=== PATIENT | female | born 1975 | race Caucasian/White ===

== ENCOUNTER 2020-08-18 11:57 | Outpatient (REF) | payer MEDICAID, SELFPAY ==
[2020-08-18 13:19] LABS: Alanine Aminotransferase 13 U/L (0-31); Albumin Level 3.6 g/dL (3.5-5.0); Alkaline Phosphatase 57 U/L (39-117); Anion Gap 10 (12-20); Aspartate Amino Transferase 14 U/L (5-31); Bilirubin Total 0.3 mg/dL (0.0-1.0); Blood Urea Nitrogen 34 mg/dL (9-16); Calcium 8.6 mg/dL (8.4-10.2); Carbon Dioxide 19 mmol/L (22-29); Chloride 116 mmol/L (96-108); Estimated Glomerular Filt Rate 24; Glucose Random 113 mg/dL (60-115); Potassium 4.2 mmol/L (3.3-5.1); Sodium 141 mmol/L (135-145)
== END 2020-08-18 11:58 | disposition home or self-care (01) ==
LOC: HO.MANLDS 11:57
PROVIDERS: Visit Provider Internal Medicine
DX: N18.4 Chronic kidney disease, stage 4 (severe) (principal)
CPT/HCPCS: 36415; 80053

== ENCOUNTER 2021-05-21 09:45 | Outpatient (REF) | payer MEDICAID, SELFPAY ==
[2021-05-21 11:12] LABS: MANUAL DIFF FLAG NO
[2021-05-21 11:18] LABS: Basophils Absolute Auto 0.1 X10*3/uL (0.0-0.2); Basophils Percent Auto 0.5 % (0-2); Eosinophils Absolute Auto 0.4 X10*3/uL (0.0-0.4); Eosinophils Percent Auto 3.9 % (0-4); Hematocrit 39.8 % (37.0-47.0); Hemoglobin 13.1 g/dl (12.0-16.0); Imm Gran Abs Auto 0.06 X10*3/uL (0.00-0.03); Imm Gran Pct Auto 0.6 % (0.0-0.4); Lymphocytes Absolute Auto 1.7 X10*3/uL (1.2-4.9); Lymphocytes Percent Auto 17.8 % (20-40); Mean Corpuscular HGB Conc 32.9 g/dl (31.0-35.0); Mean Corpuscular Hemoglobin 30.3 pg (27.0-33.0); Mean Corpuscular Volume 92.1 fL (80.0-98.0); Mean Platelet Volume 10.9 fL (9.4-12.3); Monocytes Absolute Auto 0.6 X10*3/uL (0.1-1.2); Monocytes Percent Auto 6.5 % (2-11); Neutrophils Absolute Auto 6.7 x10*3/uL (2.0-8.3); Neutrophils Percent Auto 70.7 % (45-73); Platelet Count 279 X10*3/uL (160-400); Red Blood Count 4.32 X10*6/uL (4.20-5.50); Red Cell Distribution Width 13.2 % (11.0-16.0); White Blood Count 9.5 X10*3/uL (4.8-10.8)
[2021-05-21 11:25] LABS: Alanine Aminotransferase 19 U/L (0-31); Albumin Level 3.7 g/dL (3.5-5.0); Alkaline Phosphatase 63 U/L (39-117); Anion Gap 14 (12-20); Aspartate Amino Transferase 15 U/L (5-31); Bilirubin Total 0.3 mg/dL (0.0-1.0); Blood Urea Nitrogen 35 mg/dL (9-16); Calcium 9.1 mg/dL (8.4-10.2); Carbon Dioxide 18 mmol/L (22-29); Chloride 111 mmol/L (96-108); Cholesterol 174 mg/dL; Estimated Glomerular Filt Rate 22; Glucose Fasting 101 mg/dL (60-99); HDL Cholesterol 43 mg/dL; Iron 76 mcg/dL (30-160); LDL Cholesterol Calculated 92 mg/dl; Percent Iron Saturation 25 % (15-50); Sodium 139 mmol/L (135-145); Total Iron Binding Capacity 300 mcg/dL (228-428); Total Protein 6.3 g/dL (6.5-8.0); Triglycerides 196 mg/dL; Unsaturated Iron Binding 224 ug/dL
[2021-05-21 12:13] LABS: Ferritin 119 ng/mL (10-250)
== END 2021-05-21 09:46 | disposition home or self-care (01) ==
LOC: HO.MANLDS 09:45
PROVIDERS: PCP Internal Medicine; Visit Provider Internal Medicine
DX: N18.4 Chronic kidney disease, stage 4 (severe) (principal); D63.1 Anemia in chronic kidney disease; E78.5 Hyperlipidemia, unspecified
CPT/HCPCS: 36415; 80053; 80061; 82728; 83540; 85025

== ENCOUNTER 2022-04-04 09:20 | Day surgery (SDC) | payer MEDICAID, SELFPAY ==
--- NOTE | 2022-04-01 12:42 | HO.ANESPROP2 ---
Documented by User: Danna Marcial NP 04/01/22 12:49 HPI - Anesthesia Eval Consult details Narrative: 46yo F for Colonoscopy PMFSH Past Medical History Medical History Anemia Anxiety Asthma CKD (chronic kidney disease) Depression Encounter for prophylactic removal of ovary Ganglion of right wrist Gout HLD (hyperlipidemia) HTN (hypertension) Hx of bleeding following renal biopsy Hypothyroid Migraines Seasonal allergies Social History Social History Patient Tobacco Use Status: Never used Tobacco Use of substances other than those prescribed or required for medical reasons: No Are you DNR?: No Advance Directives: No Advance Directives Information Provided: Yes Meds Allergies Allergy/AdvReac Type Severity Reaction Status Date / Time hydrocodone [From VICODIN] Allergy Unknown VOMITTING Verified 04/04/22 09:40 latex [Latex] Allergy Unknown HANDS GET Verified 04/04/22 09:40 ITCHY AND PUFFY Home Medications Medication Instructions Recorded Confirmed Last Taken Type allopurinol 100 mg tablet 1 tab PO BID 04/01/22 04/01/22 Unknown History aripiprazole 2 mg tablet 2 tab PO DAILY 04/01/22 04/01/22 Unknown History clonazepam 04/01/22 Unknown History fluticasone fur. 200 mcg-umeclid 1 puff inhalation DAILY 04/01/22 04/01/22 Unknown History 62.5 mcg-vilant 25 mcg inhalat.powder (Trelegy Ellipta) furosemide 20 mg tablet 1 tab PO 2XW 04/01/22 04/01/22 Unknown History lisinopril 5 mg tablet 1 tab PO DAILY 04/01/22 04/01/22 Unknown History paroxetine HCl 04/01/22 Unknown History simvastatin 40 mg tablet 1 tab PO DAILY 04/01/22 04/01/22 Unknown History sumatriptan succinate 100 mg tablet mg PO 04/01/22 04/01/22 Unknown History Exam Exam Date and Time: April 01, 2022 124 Assessment and Plan Assessment Anesthesia Assessment: Chart Reviewed Documented by User: Janet Barrios MD 04/04/22 10:18 [facility] Past Medical History Medical History Anemia Anxiety Asthma CKD (chronic kidney disease) Depression Encounter for prophylactic removal of ovary Ganglion of right wrist Gout HLD (hyperlipidemia) HTN (hypertension) Hx of bleeding following renal biopsy Hypothyroid Migraines Seasonal allergies Functional capacity: independent ambulation Patient : No Family History Family history of problems with anesthesia: No Surgical History History of Problems with Anesthesia: No Social History Social History Patient Tobacco Use Status: Never used Tobacco Use of substances other than those prescribed or required for medical reasons: No Are you DNR?: No Advance Directives: No Advance Directives Information Provided: Yes Meds Allergies Allergy/AdvReac Type Severity Reaction Status Date / Time hydrocodone [From VICODIN] Allergy Unknown VOMITTING Verified 04/04/22 09:40 latex [Latex] Allergy Unknown HANDS GET Verified 04/04/22 09:40 ITCHY AND PUFFY Home Medications Medication Instructions Recorded Confirmed Last Taken Type allopurinol 100 mg tablet 1 tab PO BID 04/01/22 04/01/22 Unknown History aripiprazole 2 mg tablet 2 tab PO DAILY 04/01/22 04/01/22 Unknown History clonazepam 04/01/22 Unknown History fluticasone fur. 200 mcg-umeclid 1 puff inhalation DAILY 04/01/22 04/01/22 Unknown History 62.5 mcg-vilant 25 mcg inhalat.powder (Trelegy Ellipta) furosemide 20 mg tablet 1 tab PO 2XW 04/01/22 04/01/22 Unknown History lisinopril 5 mg tablet 1 tab PO DAILY 04/01/22 04/01/22 Unknown History paroxetine HCl 04/01/22 Unknown History simvastatin 40 mg tablet 1 tab PO DAILY 04/01/22 04/01/22 Unknown History sumatriptan succinate 100 mg tablet mg PO 04/01/22 04/01/22 Unknown History Exam Airway Mallampati Class: III TM Dist: >3cm Neck ROM: Full Heart: RRR Lungs: CTA Assessment and Plan Final Anesthetic Review Family History of Problems with Anesthesia: No History of Problems with Anesthesia: No ASA Class: III Final Preanesthetic Review: No Changes in Pt Med Stat, Meds/Allgs Chart Reviewed and Consent Obtained/Reviewed Patient Risk: Intermediate Procedure Risk: Low Anesthetic Plan Anesthetic Plan: MAC: Disposition: Standard PACU
[2022-04-04 09:36] VITALS: BMI 33.6
[2022-04-04 09:41] LABS: UPreg QC Valid YES; Urine Pregnancy NEGATIVE (NEGATIVE)
[2022-04-04 09:56] LABS: Prothrombin Time 11.9 SEC (10.0-13.1)
[2022-04-04 10:00] VITALS: BP 114/61; PULSE 69; RESP 16; TEMP 36.8; O2SAT 100
[2022-04-04 10:03] LABS: Anion Gap 11 (12-20); Blood Urea Nitrogen 28 mg/dL (9-16); Carbon Dioxide 18 mmol/L (22-29); Chloride 114 mmol/L (96-108); Creatinine Clr Calc Pharmacy 36.4; Estimated Glomerular Filt Rate 27; Glucose Fasting 90 mg/dL (60-99); Potassium 3.8 mmol/L (3.3-5.1); Sodium 139 mmol/L (135-145)
[2022-04-04] MEDS: Lactated Ringers 1,000 ML 100 ML IVCONT (10:07)
--- NOTE | 2022-04-04 10:14 | PC.NURSE ---
OK TO USE LR PER MD KIM
--- NOTE | 2022-04-04 11:52 | P.BOP_ITS ---
Brief Operative Note Date of Service: 04/04/22 Pre-op diagnosis: Screening Post-op diagnosis: other (Rectal polyp[) Procedure: Colonoscopy to the cecum and TI with biopsy and removal of polyp Surgeon: Demar Salcido Anesthesia: MAC Was an Auxiliary Plant Operator used for this Procedure?: No Estimated blood loss (mL): 2.0 Pathology: other (A. Rectal polyp) Condition: stable Disposition: PACU
[2022-04-04 11:53] VITALS: BP 120/74; PULSE 68; RESP 16; TEMP 36.4; O2SAT 98
--- NOTE | 2022-04-04 11:56 | HO.POSTANES ---
Post Anesthesia Evaluation Post Anesthesia Evaluation Vital Signs: Vital Signs Temp Pulse Resp BP Pulse Ox O2 Del Method 04/04/22 10:00 98.3 F 69 16 114/61 100 Room Air Anesthesia: Monitored Mental Status: Awake Pain Control: Satisfactory Nausea/Vomiting: None Hydration: Adequate Anesthesia-Related Issues: No Anes. Related Issues
[2022-04-04 12:08] VITALS: BP 126/69; PULSE 58; RESP 16; TEMP 36.4; O2SAT 98
--- NOTE | 2022-04-04 14:45 | OP_ITS ---
SURGEON: Demar Salcido MD INDICATIONS: The patient presents for evaluation of colorectal cancer screening. Full consent was obtained from her for this, including risks of bleeding and perforation. PREOPERATIVE DIAGNOSIS: Colorectal cancer screening. POSTOPERATIVE DIAGNOSIS: PROCEDURE PERFORMED: Colonoscopy to the cecum and terminal ileum with biopsy and removal of polyp. ESTIMATED BLOOD LOSS: COMPLICATIONS: ANESTHESIA: Monitored anesthesia care. ASSISTANTS: SPECIMENS: POSTOPERATIVE DIAGNOSES: Colorectal cancer screening, small colon polyp, internal hemorrhoids. PROCEDURE IN DETAIL: The patient was placed in the left lateral decubitus position. The digital rectal exam revealed no abnormalities. The Olympus video pediatric colonoscope was entered in the rectum and advanced easily to the cecum. Once in the cecum, I did identify normal appearing cecal pouch with appendiceal orifice and a normal appearing ileocecal valve. The terminal ileum was cannulated and appeared normal. The scope was then withdrawn back in the colon. The entire cecum and ileocecal valve appeared normal. The scope was then slowly withdrawn assessing all mucosal surface carefully. Preparation was excellent. I did not visualize any sign of colitis nor angiodysplasia. The only polyp, I visualized was in the distal rectum seen both in the retroflex and forward viewing position. This was less than 5 mm, and was biopsied and fully removed with the cold biopsy forceps. Some small internal hemorrhoids were noted as well. The scope was withdrawn from the patient. She tolerated the procedure well and was returned to the recovery area in stable condition. IMPRESSION: 1. Small rectal polyp, status biopsied and removal. 2. Internal hemorrhoids. PLAN: The results of the biopsy will be checked. If it is a tubular adenoma, I would recommend a repeat colonoscopy in 5 years. If it is only hyperplastic, I would recommend a repeat colonoscopy in 10 years. She will otherwise see me on a p.r.n. basis. MD MADISON Knott/FELIICA / [id number] JOSE C
== END 2022-04-04 12:55 | disposition home or self-care (01) ==
PROVIDERS: Nurse Practitioner; PCP Internal Medicine; Visit Provider Internal Medicine
PROC: 0DJD8ZZ Inspection of Lower Intestinal Tract, Via Natural or Artificial Opening Endoscopic (ICD-10-PCS; CPT 45378; principal; 2022-04-04 10:30)
DX: Z12.11 Encounter for screening for malignant neoplasm of colon (principal); K62.1 Rectal polyp; K64.8 Other hemorrhoids; R19.7 Diarrhea, unspecified
CPT/HCPCS: 45380; 36415; 80048; 81025; 85610; 88305

== ENCOUNTER 2024-06-07 11:03 | Outpatient (REF) | payer MEDICAID, SELFPAY ==
--- OUTSIDE RECORDS SUMMARY | 2024-06-07 12:50 | XMS_ITS | Encounter Summary ---
Author Organization [facility], Address [address] [place] [address] Phone Care Team Providers Care Blow Moulding Machine Operator Name Role Phone Asa Johnson DO Primary Care Provider Encounter Details Date Type Department Care Team (Late st Contact Info) Description 08/08/2022 Documentation Only [facility], - [address] [facility] [address] [place] [phone] Asa Johnson DO [address] [place] [address] Social History Tobacco Use Types Packs/Day Years Used Date Smoking Tobacco: Never Alcohol Use Standard Drinks/Week Comments Yes 0 (1 standard drink = 0.6 oz pure alcohol) Alcoholic Drinks/day: Occasional social drink Comments Unknown Sex and Gender Information Value Date Recorded Sex Assigned at Not on file Legal Sex Female 4:33 PM EST Gender Identity Not on file Sexual Orientation Not on file documented as of this encounter Plan of Treatment Not on file documented as of this encounter Visit Diagnoses Not on filedocumented in this encounter Care Teams Blow Moulding Machine Operator Relationship Specialty Start Date End Date Asa Johnson DO [address] [place] [address] PCP - General 01/08/19 documented as of this encounter
--- OUTSIDE RECORDS SUMMARY | 2024-06-07 12:51 | XMS_ITS | Encounter Summary ---
Author Organization [facility], Address [address] [place] [address] Phone Care Team Providers Care Planting Machine Operator Name Role Phone Asa Johnson DO Primary Care Provider [phone] Encounter Details Date Type Department Care Team (Late st Contact Info) Description 02/06/2023 Documentation Only [facility], - [address] [facility] [address] [place] [phone] Juan R Presley MD Social History Tobacco Use Types Packs/Day Years [...] on filedocumented in this encounter Care Teams Planting Machine Operator Relationship Specialty Start Date End Date Asa Johnson DO [address] [facility] [place] [phone] PCP - General 01/08/19 documented as of this encounter
--- OUTSIDE RECORDS SUMMARY | 2024-06-07 12:51 | XMS_ITS | Clinical Summary ---
Author Organization [facility], Address [address] [place] [address] Phone Care Team Providers Care Client Application Support Engineer Name Role Phone Asa Johnson Primary Care Provider [phone] Allergies Active Allergy Reactions Criticality Noted Date Comments Amlodipine 07/03/2019 Hydrocodone-Acetaminophen Nausea And Vom iting,Other (see comments) 10/31/2018 Latex Swelling,Other (see comments) 10/31/2018 Lisinopril 07/03/2019 Spironolactone 07/03/2019 Medications topiramate (TOPAMAX) 50 MG tablet Take 50 mg by mouth 2 (two) times a day 0 Active SUMAtriptan (IMITREX) 100 MG tablet Take 50-100 mg by mouth if needed 7 Active simvastatin (ZOCOR) 40 MG tablet Take 40 mg by mouth 1 (one) time each day 7 Active PARoxetine (PAXIL) 20 MG tablet paroxetine 20 mg tablet 1 tab(s) Once daily Orally 30 days Active FLUoxetine (PROzac) 20 MG capsule Take 20 mg by mouth every night 0 Active clonazePAM (KlonoPIN) 0.5 MG tablet Take 1 tablet by mouth 1 (one) time each day 7 Active ARIPiprazole (ABILIFY) 5 MG tablet Take 5 mg by mouth 1 (one) time each day 0 Active allopurinol (ZYLOPRIM) 100 MG tablet Take 100 mg by mouth 1 (one) time each day 0 Active PROAIR HFA 108 (90 Base) MCG/ACT inhaler INHALE TWO PUFFS BY MOUTH EVERY 4 HOURS 0 Active cholecalciferol (VITAMIN D-3 SUPER STRENGTH) 50 MCG (2000 UT) tablet Take 1 capsule by mouth 1 (one) time each day Active Potassium Gluconate 595 (99 K) MG tablet Take 1 tablet by mouth 1 (one) time each day Active eszopiclone (LUNESTA) 2 MG tablet at bed time Active predniSONE (DELTASONE) 10 MG tablet if needed Active fluticasone (FLONASE) 50 MCG/ACT nasal spray Comments: Filled Date: Oct 02 2014 12:00AM Duration: 30 4 Active FLUoxetine (PROzac) 10 MG capsule Take 10 mg by mouth 1 (one) time each day 1 Active cholestyramine light 4 g packet DISSOLVE AND TAKE ONE PACKET BY MOUTH EVERY DAY 1 Active ketotifen (ZADITOR) 0.025 % ophthalmic solution ketotifen 0.025 % (0.035 %) eye drops INSTILL 1 DROP INTO EACH EYE TWO TIMES A DAY NEEDED Active Trelegy Ellipta 200-62.5-25 MCG/INH aerosol powder Inhale 1 puff 1 (one) time each day 2 Active ipratropium (ATROVENT) 0.06 % nasal spray Administer 2 sprays into affected nostril(s) 3 times a day 2 Active lisinopril 5 MG tablet Take 1 tablet (5 mg total) by mouth 1 (one) time each day 90 tablet 3 3 Active furosemide (LASIX) 20 MG tablet TAKE 1 TABLET BY MOUTH 2 TIMES A WEEK 24 tablet 3 4 Active Active Problems Problem Noted Date Diagnosed Date Essential hypertension 07/14/2020 Focal segmental glomerulosclerosis 01/14/2020 Chronic kidney disease due to hypertension 07/02 Hyperparathyroidism due to renal insufficiency 0 07/03/2019 Proteinuria 07/03/2019 Adrenal hyperplasia 12/13/2017 Chronic kidney disease stage 4 12/13/2017 Gout 12/13/2017 Hyperaldosteronism 12/13/2017 Hyperlipidemia 12/13/2017 Resolved Problems Problem Noted Date Diagnosed Date Resolved Date Anemia in chronic kidney disease 07/03/2019 01/31/2023 Mixed urinary incontinence 12/13/2017 0 08/21/2019 Secondary hyperparathyroidism 07/14/2020 Anemia 08/21/2019 Encounters Date Type Department Care Team Description 04/30/2024 Telephone [facility] [address] [place] [address] Lexie Salvador from Last 3 Months Immunizations Name Administration Dates Next Due Influenza, MDCK, PF, Quadrivalent 11/07/2019, Influenza, Quadrivalent, Preservative Free 12/29 Influenza, Quadrivalent, With Preservative 12/04,11/07/2019,2018 Influenza, Unspecified 01/01/2022,12/06/2021 Moderna SARS-COV-2 01/26/2021,04/29/2020, 021 Pfizer SARS-COV-2 04/01/2020 Pneumococcal Polysaccharide 10/26/2018, 9 Tdap 04/12/2019 Family History Medical History Relation Comments COPD Father Hyperthyroidism Father Hypertension Mother Stroke Paternal Grandmother Thyroid cancer Paternal Grandmother Relation Status Comments Father Alive Mother Alive Paternal Grandmother Social History Tobacco Use Types Packs/Day Years Used Date Smoking Tobacco: Never Alcohol Use Standard Drinks/Week Comments Yes 0 (1 standard drink = 0.6 oz pure alcohol) Alcoholic Drinks/day: Occasional social drink Comments Unknown Sex and Gender Information Value Date Recorded Sex Assigned at Not on file Legal Sex Female 4:33 PM EST Gender Identity Not on file Sexual Orientation Not on file Last Filed Vital Signs Vital Sign Reading Time Taken Comments Blood Pressure 132/72 02/01/2023 7:37 AM EST Pulse 68 02/01/2023 7:37 AM EST Temperature 36.7 ??C (98 ??F) 01/24/2019 12:00 PM EST Respiratory Rate 14 02/01/2023 7:37 AM EST Oxygen Saturation - - Inhaled Oxygen Concentration - - Weight 96.2 kg (212 lb) 02/01/2023 7:37 AM EST Height 160 cm (5' 3 ) 02/01/2023 7:37 AM EST Body Mass Index 37.55 02/01/2023 7:37 AM EST Plan of Treatment Health Maintenance Due Date Last Done Comments Hepatitis B Vaccine (1 of 3 - 19+ 3-dose series) 11/30/1994 Pneumococcal Vaccine: Pediat rics (0 to 5 Years) and At-Risk Patients (6 to 64 Years) (3 of 3 - PCV) 10/27/2019 10/26/2018, 01/09/2009 Influenza Vaccine (#1) 2023 2, 12/06/2021, 12/04/2020, Additional history exists Insurance MEDICAID [place] Care Teams Client Application Support Engineer Relationship Specialty Start Date End Date Asa Johnson DO [address] [place] [phone] PCP - General 11/5/19
--- OUTSIDE RECORDS SUMMARY | 2024-06-07 12:51 | XMS_ITS | Encounter Summary ---
Author Organization [facility], Address [address] [place] [address] Phone Care Team Providers Care Harvest Manager Name Role Phone Asa Johnson DO Primary Care Provider [phone] Encounter Details Date Type Department Care Team (Late st Contact Info) Description 07/15/2022 Documentation Only [facility], - [place] [address] [facility] [address] [place] [phone] Juan R Presley MD Social History Tobacco [...] on filedocumented in this encounter Care Teams Harvest Manager Relationship Specialty Start Date End Date Asa Johnson DO 6 [facility] [phone] PCP - General 01/08/19 documented as of this encounter
--- OUTSIDE RECORDS SUMMARY | 2024-06-07 12:51 | XMS_ITS | Encounter Summary ---
Author Organization [facility], Address [address] [place] [address] Phone Care Team Providers Care Pile Driving Supervisor Name Role Phone Asa Johnson DO Primary Care Provider [phone] Encounter Details Date Type Department Care Team (Late st Contact Info) Description 02/06/2023 Documentation Only [facility], - [address] [facility] [address] [place] [phone] Juan R Presley MD Social History Tobacco [...] on filedocumented in this encounter Care Teams Pile Driving Supervisor Relationship Specialty Start Date End Date Asa Johnson DO [address] [facility] [place] [phone] PCP - General 01/08/19 documented as of this encounter
--- OUTSIDE RECORDS SUMMARY | 2024-06-07 12:51 | XMS_ITS | Encounter Summary ---
Author Organization [facility], Address [address] [place] [address] Phone Care Team Providers Care Mine Surveyor Name Role Phone Asa Johnson DO Primary Care Provider [phone] Encounter Details Date Type Department Care Team (Late st Contact Info) Description 02/06/2023 Documentation Only [facility], - [address] [facility] [address] [place] [phone] Juan R Presley MD Social History Tobacco [...] on filedocumented in this encounter Care Teams Mine Surveyor Relationship Specialty Start Date End Date Asa Johnson DO [address] [facility] [place] [phone] PCP - General 01/08/19 documented as of this encounter
--- OUTSIDE RECORDS SUMMARY | 2024-06-07 12:51 | XMS_ITS | Encounter Summary ---
Author Organization [facility], Address [address] [place] [address] Phone Care Team Providers Care Country Singer Name Role Phone Asa Johnson DO Primary Care Provider [phone] Encounter Details Date Type Department Care Team (Late st Contact Info) Description 02/14/2020 Orders Only [facility] - [facility] [address] [place] [address] Juan R Presley MD Chronic kidney disease stage 4 (HCC) Social History Tobacco Use Types Packs/Day Years [...] documented as of this encounter Visit Diagnoses Diagnosis Chronic kidney disease stage 4 (HCC) documented in this encounter Care Teams Country Singer Relationship Specialty Start Date End Date Asa Johnson DO [address] [place] [phone] PCP - General 01/08/19 documented as of this encounter
--- OUTSIDE RECORDS SUMMARY | 2024-06-07 12:51 | XMS_ITS | Encounter Summary ---
Author Organization [facility], Address [address] [place] [address] Phone Care Team Providers Care Loftsman/Woman Name Role Phone Asa Johnson DO Primary Care Provider [phone] Encounter Details Date Type Department Care Team (Late st Contact Info) Description 02/06/2023 Documentation Only [facility], - [address] [facility] [address] [place] [phone] Juan R Presley MD Social History Tobacco [...] on filedocumented in this encounter Care Teams Loftsman/Woman Relationship Specialty Start Date End Date Asa Johnson DO [address] [facility] [place] [phone] PCP - General 01/08/19 documented as of this encounter
--- OUTSIDE RECORDS SUMMARY | 2024-06-07 12:51 | XMS_ITS | Encounter Summary ---
Author Organization [facility], Address [address] [place] [address] Phone Care Team Providers Care Floor Attendant Name Role Phone Asa Johnson DO Primary Care Provider [phone] Reason for Visit * Reason Comments Med Refill Encounter Details Date Type Department Care Team (Late st Contact Info) Description 02/04/2021 Refill [facility] - [facility] [address] [facility] [address] [place] [phone] Juan R Presley MD Social History Tobacco [...] on filedocumented in this encounter Care Teams Floor Attendant Relationship Specialty Start Date End Date Asa Johnson DO [address] [place] [phone] PCP - General 01/08/19 documented as of this encounter
--- OUTSIDE RECORDS SUMMARY | 2024-06-07 12:51 | XMS_ITS | Patient Health Record ---
Author Organization [facility] Address [address] [place] [address] Care Team Providers Care Stove Installer Name Role Phone Asa Johnson Primary Care Provider Demar Lockhart [phone] Allergies Allergen (clinical drug ingredient) Drug/Non Drug Allergy documented on EMR Reaction Allergy Type Onset Date Status Latex Latex Unknown Allergy Active Vicodin Unknown Drug Allergy Active Reason For Referral No Information Medications Medication SIG (Take, Route, Frequency, Duration) Notes Start Date End Date Status Tart Crespo Ultra 1200 MG as directed Orally Active Multivitamin Adult - 1 tablet Orally Onc e a day for 30 day(s) Active Simvastatin 40 MG TAKE ONE TABLET BY M OUTH EVERY DAY Oral for 30 Active Garlic 1500 Active Furosemide 20 MG TAKE 1 TABLET BY LUCRETIA TH 2 TIMES A WEEK :) Oral for 28 Active Allopurinol 100 MG TAKE ONE TABLET BY M OUTH TWICE A DAY Oral for 30 Active Lisinopril 5 MG TAKE ONE TABLET BY M OUTH EVERY DAY Oral for 90 Active ARIPiprazole 5 MG TAKE ONE TABLET BY M OUTH EVERY DAY Oral for 30 Active PARoxetine HCl Activ e Imitrex Active Trelegy Ellipta 200-62.5-25 MCG/ACT INHALE 1 PUFF INTO THE LUNGS DAILY Inhalation for 90 Active clonazePAM Active Immunizations Vaccine Route Administration Date Status Comme nts Influenza Unknown 12/06/2021 Administered Social History Tobacco Use: Social History Observation Description Date Details (start date - stop date) Never Smoker NA - NA Tobacco Use/Smoking Question Answer Notes Patient is a nonsmoker Alcohol Screen Question Answer Notes Did you have a drink containing alcohol in the p ast year? No Points 0 Interpretation Negative Section Notes: Nonsmoker; no sig alcohol Problems Problem Type SNOMED Code ICD Code Onset Dates Problem Status W/U Status Risk Notes Problem Colon cancer screening (334156250) Colon cancer screening (Z12.11) Active confirmed Problem Diarrhea (28801558) Diarrhea (R19.7) Active confirmed Problem Preprocedural examination (226664553446975) Preprocedural examination (Z01.818) Active confirmed Plan Of Treatment Pending Test Test Name Order Date Pathology 04/04/2022 Future Test Test Name Order Date COLONOSCOPY 02/11/2022 Insurance Providers Payer Name Payer Address Payer Phone Subscriber Number Group Number Insured Name Patient Relationship to Insured Coverage Start Date Coverage End Date [place] [address] [place] [address] [id number] RJ MITCHELL Self - patient is the insured Medical (General) History Medical History History ICD Code Chronic kidney disease stage 4 --Dr. Orlando dennis Hypertension Anemia Hypothyroidism Hypercholesterolemia Asthma Anxiety Migraines Gout Depresssion Seasonal allergies Diarrhea--Negative colonosco py with me in 2009. There was no IBD or miroscopic colitis. Biopsies from the TI were normal. Negative labs for celiac disease. Denies UT,DM,CVA Surgical History Surgery Date(Month/Year) Ganglion cyst right wrist One ovary removed due to ovarian cyst
--- OUTSIDE RECORDS SUMMARY | 2024-06-07 12:51 | XMS_ITS | Encounter Summary ---
Author Organization [facility], Address [address] [place] [address] Phone Care Team Providers Care Rehabilitation Therapist Name Role Phone Asa Johnson DO Primary Care Provider [phone] Encounter Details Date Type Department Care Team (Late st Contact Info) Description 07/15/2022 Documentation Only [facility], - [place] [address] [facility] [address] [place] [phone] Juan R Presley MD Social History Tobacco [...] on filedocumented in this encounter Care Teams Rehabilitation Therapist Relationship Specialty Start Date End Date Asa Johnson DO 6 [facility] [phone] PCP - General 01/08/19 documented as of this encounter
[2024-06-07 13:36] LABS: MANUAL DIFF FLAG NO
[2024-06-07 13:41] LABS: Basophils Absolute Auto 0.1 X10*3/uL (0.0-0.2); Basophils Percent Auto 0.5 % (0-2); Eosinophils Absolute Auto 0.3 X10*3/uL (0.0-0.4); Eosinophils Percent Auto 2.6 % (0-4); Hematocrit 40.3 % (37.0-47.0); Hemoglobin 13.1 g/dl (12.0-16.0); Imm Gran Abs Auto 0.09 X10*3/uL (0.00-0.03); Imm Gran Pct Auto 0.9 % (0.0-0.4); Lymphocytes Absolute Auto 1.4 X10*3/uL (1.2-4.9); Lymphocytes Percent Auto 13.9 % (20-40); Mean Corpuscular HGB Conc 32.5 g/dl (31.0-35.0); Mean Corpuscular Hemoglobin 29.9 pg (27.0-33.0); Mean Platelet Volume 11.1 fL (9.4-12.3); Monocytes Absolute Auto 0.5 X10*3/uL (0.1-1.2); Monocytes Percent Auto 4.9 % (2-11); Neutrophils Absolute Auto 7.5 x10*3/uL (2.0-8.3); Neutrophils Percent Auto 77.2 % (45-73); Platelet Count 292 X10*3/uL (160-400); Red Blood Count 4.38 X10*6/uL (4.20-5.50); Red Cell Distribution Width 12.8 % (11.0-16.0); White Blood Count 9.8 X10*3/uL (4.8-10.8)
[2024-06-07 14:55] LABS: Alanine Aminotransferase 17 U/L (0-31); Albumin Level 3.5 g/dL (3.5-5.0); Alkaline Phosphatase 69 U/L (39-117); Anion Gap 13 (12-20); Aspartate Amino Transferase 19 U/L (5-31); Bilirubin Total 0.3 mg/dL (0.0-1.0); Blood Urea Nitrogen 71 mg/dL (9-16); Calcium 9.1 mg/dL (8.4-10.2); Carbon Dioxide 20 mmol/L (22-29); Chloride 113 mmol/L (96-108); Estimated Glomerular Filt Rate 14; Glucose Random 91 mg/dL (60-115); Potassium 4.8 mmol/L (3.3-5.1); Sodium 141 mmol/L (135-145); Total Protein 6.3 g/dL (6.5-8.0)
== END 2024-06-07 11:04 | disposition home or self-care (01) ==
LOC: HO.MANLDS 11:03
PROVIDERS: Visit Provider Internal Medicine
DX: I10 Essential (primary) hypertension (principal)
CPT/HCPCS: 36415; 80053; 85025

== ENCOUNTER 2024-07-12 14:08 | Outpatient (REF) | payer BC, SELFPAY ==
--- OUTSIDE RECORDS SUMMARY | 2024-07-12 14:47 | XMS_ITS | Clinical Summary ---
Author Organization [facility], Address [address] [place] [address] Phone Care Team Providers Care Retail Store Assistant Name Role Phone Asa Johnson Primary Care Provider [phone] Allergies Active Allergy Reactions Criticality Noted Date [...] Telephone [facility] [address] [place] [address] Lexie Salvador from Last 3 Months [...] 9, 01/09/2009 Insurance Medicaid [place] Care Teams Retail Store Assistant Relationship Specialty Start Date End Date Asa Johnson DO [address] [place] [phone] [facility] - General 01/08/19
--- OUTSIDE RECORDS SUMMARY | 2024-07-12 14:47 | XMS_ITS | Encounter Summary ---
Author Organization [facility] [place], Address [address] [place] [address] Phone Care Team Providers Care Service Developer Name Role Phone Asa Johnson DO Primary Care Provider [phone] Encounter Details Date Type Department Care Team (Late st Contact Info) Description 07/15/2022 Documentation Only [facility] [place], - [place] [address] [facility] [address] [place] [phone] Juan R Presley MD Social History Tobacco [...] on filedocumented in this encounter Care Teams Service Developer Relationship Specialty Start Date End Date Asa Johnson DO 6 [facility] [place] [phone] PCP - General 01/08/19 documented as of this encounter
--- OUTSIDE RECORDS SUMMARY | 2024-07-12 14:47 | XMS_ITS | Encounter Summary ---
Author Organization [facility] [place], Address [address] [place] [address] Phone Care Team Providers Care Wrapper Operator Name Role Phone sAa Johnson DO Primary Care Provider [phone] Encounter Details Date Type Department Care Team (Late st Contact Info) Description 02/06/2023 Documentation Only [facility] [place], - [place] [address] [facility] [address] [place] [phone] Juan R Presley MD Social History Tobacco [...] on filedocumented in this encounter Care Teams Wrapper Operator Relationship Specialty Start Date End Date Asa Johnson DO 6 [facility] [place] [phone] PCP - General 01/08/19 documented as of this encounter
--- OUTSIDE RECORDS SUMMARY | 2024-07-12 14:47 | XMS_ITS | Encounter Summary ---
Author Organization [facility] [place], Address [address] [place] [address] Phone Care Team Providers Care Database Marketing Analyst Name Role Phone Asa Johnson DO Primary Care Provider [phone] Encounter Details Date Type Department Care Team (Late st Contact Info) Description 08/08/2022 Documentation Only [facility] [place], - [place] [facility] [address] [place] [phone] Asa Johnson DO 6 [place] [address] Social History Tobacco Use Types [...] on filedocumented in this encounter Care Teams Database Marketing Analyst Relationship Specialty Start Date End Date Asa Johnson DO 6 [place] [address] PCP - General 01/08/19 documented as of this encounter
--- OUTSIDE RECORDS SUMMARY | 2024-07-12 14:47 | XMS_ITS | Encounter Summary ---
Author Organization [facility] [place], Address [address] [place] [address] Phone Care Team Providers Care Slat Basket Top Maker Name Role Phone Asa Johnson DO Primary Care Provider [phone] Encounter Details Date Type Department Care Team (Late st Contact Info) Description 02/06/2023 Documentation Only [facility] [place], - [place] [address] [facility] [address] [place] [phone] Juan R Presley MD Social History Tobacco [...] on filedocumented in this encounter Care Teams Slat Basket Top Maker Relationship Specialty Start Date End Date Asa Johnson DO 6 [place] [phone] PCP - General 01/08/19 documented as of this encounter
--- OUTSIDE RECORDS SUMMARY | 2024-07-12 14:47 | XMS_ITS | Encounter Summary ---
Author Organization [facility] [place], Address [address] [place] [address] Phone Care Team Providers Care Voice Data Communications Engineer Name Role Phone Asa Johnson DO Primary Care Provider [phone] Encounter Details Date Type Department Care Team (Late st Contact Info) Description 02/14/2020 Orders Only [facility] [place] - [facility] 51 [facility] 3 [place] [address] Juan R Presley MD Chronic kidney disease [...] (HCC) documented in this encounter Care Teams Voice Data Communications Engineer Relationship Specialty Start Date End Date Asa Johnson DO [address] [place] [phone] PCP - General 01/08/19 documented as of this encounter
--- OUTSIDE RECORDS SUMMARY | 2024-07-12 14:47 | XMS_ITS | Encounter Summary ---
Author Organization [facility] [place], Address [address] [place] [address] Phone Care Team Providers Care Programmer Or Analyst Name Role Phone Asa Johnson DO Primary Care Provider [phone] Encounter Details Date Type Department Care Team (Late st Contact Info) Description 07/15/2022 Documentation Only [facility] [place], - [place] [address] [facility] [address] [place] [phone] Juan R Presley MD Social History Tobacco [...] on filedocumented in this encounter Care Teams Programmer Or Analyst Relationship Specialty Start Date End Date Asa Johnson DO 6 [facility] [place] [phone] PCP - General 01/08/19 documented as of this encounter
--- OUTSIDE RECORDS SUMMARY | 2024-07-12 14:47 | XMS_ITS | Encounter Summary ---
Author Organization [facility] [place], Address [address] [place] [address] Phone Care Team Providers Care Relations Manager Name Role Phone Asa Johnson DO Primary Care Provider [phone] Reason for Visit * Reason Comments Med Refill Encounter Details Date Type Department Care Team (Late st Contact Info) Description 02/04/2021 Refill [facility] [place] - [facility] 51 [facility] 3 [place] [phone] Juan R Presley MD Social History Tobacco [...] on filedocumented in this encounter Care Teams Relations Manager Relationship Specialty Start Date End Date Asa Johnson DO [address] [place] [phone] PCP - General 01/08/19 documented as of this encounter
--- OUTSIDE RECORDS SUMMARY | 2024-07-12 14:47 | XMS_ITS | Encounter Summary ---
Author Organization [facility] [place], Address [address] [place] [address] Phone Care Team Providers Care Multi Care Technician Name Role Phone Asa Johnson DO Primary Care Provider [phone] Encounter Details Date Type Department Care Team (Late st Contact Info) Description 02/06/2023 Documentation Only [facility] [place], - [place] [address] [facility] [address] [place] [phone] Juan R Presley MD Social History Tobacco [...] on filedocumented in this encounter Care Teams Multi Care Technician Relationship Specialty Start Date End Date Asa Johnson DO 6 [facility] [place] [place] [phone] PCP - General 01/08/19 documented as of this encounter
--- OUTSIDE RECORDS SUMMARY | 2024-07-12 14:47 | XMS_ITS | Encounter Summary ---
Author Organization [facility] [place], Address [address] [place] [address] Phone Care Team Providers Care Skelp Processor Name Role Phone Asa Johnson DO Primary Care Provider [phone] Encounter Details Date Type Department Care Team (Late st Contact Info) Description 02/06/2023 Documentation Only [facility] [place], - [place] [address] [facility] [address] [place] [phone] Juan R Presley MD Social History Tobacco [...] on filedocumented in this encounter Care Teams Skelp Processor Relationship Specialty Start Date End Date Asa Johnson DO 6 [facility] [place] [phone] PCP - General 01/08/19 documented as of this encounter
[2024-07-12 15:44] LABS: Phosphorus 3.8 mg/dL (2.7-4.5)
[2024-07-12 15:45] LABS: Parathyroid Hormone Intact 353.7 pg/mL (8.7-77.1)
[2024-07-12 15:52] LABS: Alanine Aminotransferase 16 U/L (0-31); Albumin Level 3.7 g/dL (3.5-5.0); Anion Gap 13 (12-20); Aspartate Amino Transferase 19 U/L (5-31); Bilirubin Total 0.4 mg/dL (0.0-1.0); Blood Urea Nitrogen 45 mg/dL (9-16); Carbon Dioxide 20 mmol/L (22-29); Chloride 112 mmol/L (96-108); Estimated Glomerular Filt Rate 14; Glucose Random 83 mg/dL (60-115); Iron 100 mcg/dL (30-160); Magnesium 2.2 mg/dL (1.6-2.6); Percent Iron Saturation 37 % (15-50); Phosphorus 3.8 mg/dL (2.7-4.5); Potassium 4.5 mmol/L (3.3-5.1); Sodium 140 mmol/L (135-145); Total Iron Binding Capacity 270 mcg/dL (228-428); Total Protein 6.4 g/dL (6.5-8.0); Unsaturated Iron Binding 170 ug/dL
[2024-07-12 16:07] LABS: Vitamin B12 417 pg/mL (200-900)
[2024-07-12 16:13] LABS: Ferritin 75 ng/mL (10-250)
[2024-07-12 16:32] LABS: Appearance Urine Clear; Color Urine Yellow; Glucose Urine UA Negative (Negative); Leukocyte Esterase Urine Small (1+) (Negative); Nitrite Urine Negative (Negative); Specific Gravity - Urine 1.015 (1.005-1.025); UMIC TRIGGER UA YES; Urine Blood Negative (Negative); Urine Ketones Negative (Negative); Urine Protein 300 (3+) mg/dL (Neg-Trace)
[2024-07-12 16:40] LABS: Bacteria Urine 4+ (None Seen); Hyaline Casts Urine 0-2 /LPF (0-2); RBC Urine 0-2 /HPF (0-2)
[2024-07-12 17:21] LABS: Alkaline Phosphatase 63 U/L (39-117)
== END 2024-07-12 14:09 | disposition home or self-care (01) ==
LOC: HO.LAB 14:08
PROVIDERS: Absent Provider Internal Medicine; PCP Internal Medicine; Referring Provider Internal Medicine; Visit Provider Internal Medicine Hypertension Specialist
DX: N18.4 Chronic kidney disease, stage 4 (severe) (principal)
CPT/HCPCS: 36415; 80053; 81001; 82306; 82607; 82728; 83540; 83735; 83970; 84100

== ENCOUNTER 2024-07-12 14:08 | Outpatient (AMB) | payer BC, SELFPAY ==
[2024-07-12 14:09] VITALS: BP 128/80; PULSE 53; O2SAT 98; BMI 36.0
--- NOTE | 2024-07-12 14:09 | HO.NEPHOV ---
Vital Signs 07/12/24 14:09 Height 5 ft 3 in Weight 203 lb BMI 36.0 BP 128/80 Blood Pressure Location Rt brachial Position Sitting Pulse 53 Pulse Source Pulse Oximeter Pulse Oximetry (%) 98 Oxygen Delivery Method Room Air Intake Visit Reasons: ENP: CKD & Creatinine Levels/ LVM Foreign Banknote Teller Trader Required: No Accompanied by: Self / Same As Patient Allergies hydrocodone [From VICODIN] Allergy (Unknown, Verified 07/12/24 14:13) VOMITTING latex [Latex] Allergy (Unknown, Verified 07/12/24 14:13) HANDS GET ITCHY AND PUFFY Medication List - Last Reconciled 07/12/24 by Ernesto Mar MD albuterol sulfate mg inhalation Q6H PRN allopurinol 1 tab PO BID aripiprazole 2 tabs PO DAILY aripiprazole 5 mg PO DAILY cetirizine (Zyrtec) 10 mg PO DAILY PRN amedkaakeco-nzqwmivxz-sxqrhdwy 200-62.5-25 mcg (Trelegy Ellipta) 1 puff inhalation DAILY furosemide 1 tab PO 2XW lorazepam 0.5 mg PO PRN propranolol 20 mg PO BID simvastatin 1 tab PO DAILY sumatriptan succinate 100 mg PO DAILY PRN HPI Comments Details: Shannon is a pleasant 48-year-old woman with CKD. She has had CKD since the age of 21. She was previously seen by Dr. Haq Recently serum creatinine was 3.4 with a EGFR of 14 mL/minute and hence this referral. 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 [facility] Medical History (Updated 07/12/24 @ 14:27 by Ernesto Mar MD) Plantar fasciitis Encounter for prophylactic removal of ovary Hx of bleeding following renal biopsy Ganglion of right wrist Seasonal allergies Depression Gout Migraines Anxiety Asthma HLD (hyperlipidemia) Hypothyroid Anemia HTN (hypertension) CKD (chronic kidney disease) Social History Patient Tobacco Use Status: Never used Tobacco Review of Systems Const Denies fever(s) and Denies weight loss Card Denies chest pain Resp Denies cough and Denies hemoptysis GI Denies abdominal pain, Denies diarrhea and Denies nausea Musc Denies back pain Neuro Denies focal weakness Physical Exam Vital Signs: Last Vital Signs Pulse 53 07/12/24 14:09 BP 128/80 07/12/24 14:09 Pulse Ox 98 07/12/24 14:09 Oxygen Delivery Method Room Air 07/12/24 14:09 BMI result Body Mass Index 36.0 Const General: comfortable; No acute distress Orientation/consciousness: patient oriented x3 Eyes General: appearance normal, both eyes and all related structures Visual Lugo: normal visual lugo by confrontation Neck Neck: Yes supple and Yes no JVD Resp Effort & Inspection: normal respiratory effort and respiratory effort not decreased Cardio Palpation: no palpable S3 and no palpable S4 Heart sounds: no rubs GI Inspection: Yes normal to inspection Palpation (GI): Soft to palpation Percussion: Yes normal to percussion Auscultation: normal bowel sounds General: Yes no CVA tenderness Back/Spine/Pelvis Back: no CVA tenderness Skin General skin exam: no petechiae and no purpura Neuro General: patient oriented x3 and no focal motor deficits Extrem General: No clubbing and No edema Results Reviewed Nephrology Results: Hgb 13.1 g/dl (12.0-16.0) 06/07/24 WBC 9.8 X10*3/uL (4.8-10.8) 06/07/24 Plt Count 292 X10*3/uL (160-400) 06/07/24 Sodium 140 mmol/L (135-145) 07/12/24 Potassium 4.5 mmol/L (3.3-5.1) 07/12/24 Chloride 112 mmol/L (96-108) H 07/12/24 Carbon Dioxide 20 mmol/L (22-29) L 07/12/24 BUN 45 mg/dL (9-16) H 07/12/24 Creatinine 3.44 mg/dL (0.5-1.4) H 07/12/24 Calcium 9.0 mg/dL (8.4-10.2) 07/12/24 Phosphorus 3.8 mg/dL (2.7-4.5) 07/12/24 PTH Intact 353.7 pg/mL (8.7-77.1) H 07/12/24 Urine Protein 1+ (NEG - TRACE) H 03/19/19 Assessment & Plan Assessment & Plan (1) CKD (chronic kidney disease): Comment: Stage 4 Code(s): N18.9 - Chronic kidney disease, unspecified Category: Medical Plan: 48-year-old woman with 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 At present no signs or symptoms of uremia. Fluid status is acceptable. Plan Obtain follow up renal ultrasonogram Check 24 hour urine collection. Check intact PTH and repeat renal panel. Encouraged her to stay on low-sodium diet Continue to avoid nephrotoxic agents including NSAIDs. Once the above workup is completed I will refer her for preemptive renal transplantation Orders: Orders Creatinine Clearance Urine 24U Today N18.9 - Chronic kidney disease, unspecified Phosphorus Today N18.9 - Chronic kidney disease, unspecified US renal BI Today I10 - Essential (primary) hypertension, N18.9 - Chronic kidney disease, unspecified Basic Metabolic Panel Today N18.9 - Chronic kidney disease, unspecified UA and rflx microscopic Today N18.9 - Chronic kidney disease, unspecified Parathyroid Hormone Intact Today N18.9 - Chronic kidney disease, unspecified Vitamin D 25-OH Total Today N18.9 - Chronic kidney disease, unspecified Protein, 24 Hr Urine Group Today N18.9 - Chronic kidney disease, unspecified Coding Level of Care Code New Pt Level 4 (17318) Diagnoses CKD (chronic kidney disease) N18.9
--- OUTSIDE RECORDS SUMMARY | 2024-07-12 14:10 | XMS_ITS | Encounter Summary ---
Author Organization [facility] [place], Address [address] [place] [address] Phone Care Team Providers Care Continuous Loft Operator Name Role Phone Asa Johnson DO Primary Care Provider [phone] Encounter Details Date Type Department Care Team (Late st Contact Info) Description 02/06/2023 Documentation Only [facility] [place], - [place] [address] [facility] [address] [place] [phone] Juan R Presley MD Social History Tobacco [...] on filedocumented in this encounter Care Teams Continuous Loft Operator Relationship Specialty Start Date End Date Asa Johnson DO [address] [facility] [place] [phone] PCP - General 01/08/19 documented as of this encounter
--- OUTSIDE RECORDS SUMMARY | 2024-07-12 14:10 | XMS_ITS | Encounter Summary ---
Author Organization [facility] [place], Address [address] [place] [address] Phone Care Team Providers Care Print Machine Operator Name Role Phone Asa Johnson DO Primary Care Provider [phone] Encounter Details Date Type Department Care Team (Late st Contact Info) Description 02/06/2023 Documentation Only [facility] [place], - [place] [address] [facility] [address] [place] [phone] Juan R Presley MD Social History Tobacco [...] on filedocumented in this encounter Care Teams Print Machine Operator Relationship Specialty Start Date End Date Asa Johnson DO 6 [facility] [place] [address] PCP - General 01/08/19 documented as of this encounter
--- OUTSIDE RECORDS SUMMARY | 2024-07-12 14:10 | XMS_ITS | Encounter Summary ---
Author Organization [facility] [place], Address [address] [place] [address] Phone Care Team Providers Care Ballast Inspector Name Role Phone Asa Johnson DO Primary Care Provider [phone] Encounter Details Date Type Department Care Team (Late st Contact Info) Description 07/15/2022 Documentation Only [facility] [place], - [place] [address] [facility] [address] [place] [phone] Juan R Presley MD Social History Tobacco [...] on filedocumented in this encounter Care Teams Ballast Inspector Relationship Specialty Start Date End Date Asa Johnson DO [address] [facility] [place] [phone] PCP - General 01/08/19 documented as of this encounter
--- OUTSIDE RECORDS SUMMARY | 2024-07-12 14:10 | XMS_ITS | Encounter Summary ---
Author Organization [facility] [place], Address [address] [place] [address] Phone Care Team Providers Care Kit Assembler Name Role Phone Asa Johnson DO Primary Care Provider Encounter Details Date Type Department Care Team (Late st Contact Info) Description 02/14/2020 Orders Only [facility] [place] - [facility] 51 [facility] 3 [place] [address] Juan R Presley MD Chronic kidney disease [...] (HCC) documented in this encounter Care Teams Kit Assembler Relationship Specialty Start Date End Date Asa Johnson DO [address] [place] [phone] PCP - General 01/08/19 documented as of this encounter
--- OUTSIDE RECORDS SUMMARY | 2024-07-12 14:10 | XMS_ITS | Encounter Summary ---
Author Organization [facility] [place], Address [address] [place] [address] Phone Care Team Providers Care Division Road Supervisor Name Role Phone Asa Johnson DO Primary Care Provider [phone] Reason for Visit * Reason Comments Med Refill Encounter Details Date Type Department Care Team (Late st Contact Info) Description 02/04/2021 Refill [facility] [place] - [facility] 51 [facility] 3 [place] [phone] Juan R Presley MD Social History Tobacco [...] on filedocumented in this encounter Care Teams Division Road Supervisor Relationship Specialty Start Date End Date Asa Johnson DO [address] [place] [phone] PCP - General 01/08/19 documented as of this encounter
--- OUTSIDE RECORDS SUMMARY | 2024-07-12 14:10 | XMS_ITS | Encounter Summary ---
Author Organization [facility] [place], Address [address] [place] [address] Phone Care Team Providers Care Customer Service Dispatcher Name Role Phone Asa Johnson DO Primary Care Provider [phone] Encounter Details Date Type Department Care Team (Late st Contact Info) Description 02/06/2023 Documentation Only [facility] [place], - [place] [address] [facility] [address] [place] [phone] Juan R Presley MD Social History Tobacco [...] on filedocumented in this encounter Care Teams Customer Service Dispatcher Relationship Specialty Start Date End Date Asa Johnson DO 6 [facility] [place] [phone] PCP - General 01/08/19 documented as of this encounter
--- OUTSIDE RECORDS SUMMARY | 2024-07-12 14:10 | XMS_ITS | Encounter Summary ---
Author Organization [facility] [place], Address [address] [place] [address] Phone Care Team Providers Care Music Therapy Teacher Name Role Phone Asa Johnson DO Primary Care Provider [phone] Encounter Details Date Type Department Care Team (Late st Contact Info) Description 07/15/2022 Documentation Only [facility] [place], - [place] [address] [facility] [address] [place] [phone] Juan R Presley MD Social History Tobacco [...] on filedocumented in this encounter Care Teams Music Therapy Teacher Relationship Specialty Start Date End Date Asa Johnson DO 6 [place] [phone] PCP - General 01/08/19 documented as of this encounter
--- OUTSIDE RECORDS SUMMARY | 2024-07-12 14:10 | XMS_ITS | Clinical Summary ---
Author Organization [facility], Address [address] [place] [address] Phone Care Team Providers Care Radiology Specialist Name Role Phone Asa Johnson Primary Care Provider [phone] Allergies Active Allergy Reactions Criticality Noted Date [...] Telephone [facility] [address] [place] [address] Lexie Salvador from Last 3 Months Immunizations Immunization Administration Dates Next Due Influenza, MDCK, PF, [...] - 19+ 3-dose series) 11/30/1994 Pneumococcal Vaccine: Peds ( 0 to 5 Years) and At-Risk Patients (6 to 49 Years) (3 of 3 - PCV) 10/27/2019 10/26/2018, 01/09/2009 Influenza Vaccine (Season Ended) 2024 01/01/2022, 12/06/2021, 12/04/2020, Additional history exists Pneumococcal Vaccine: 50+ Years Discontinued 9, 01/09/2009 Insurance Medicaid [place] Care Teams Radiology Specialist Relationship Specialty Start Date End Date Asa Johnson DO [address] [place] [phone] [facility] - General 01/08/19
--- OUTSIDE RECORDS SUMMARY | 2024-07-12 14:10 | XMS_ITS | Encounter Summary ---
Author Organization [facility] [place], Address [address] [place] [address] Phone Care Team Providers Care Priest Name Role Phone Asa Johnson DO Primary Care Provider [phone] Encounter Details Date Type Department Care Team (Late st Contact Info) Description 02/06/2023 Documentation Only [facility] [place], - [place] [address] [facility] [address] [place] [phone] Juan R Presley MD Social History Tobacco [...] on filedocumented in this encounter Care Teams Priest Relationship Specialty Start Date End Date Asa Johnson DO [address] [facility] [place] [place] [phone] PCP - General 01/08/19 documented as of this encounter
--- OUTSIDE RECORDS SUMMARY | 2024-07-12 14:10 | XMS_ITS | Patient Health Record ---
Author Organization [facility] Address [address] [place] [address] Care Team Providers Care Latin Teacher Name Role Phone Asa Johnson Primary Care Provider Demar Lockhart [phone] Allergies Allergen (clinical drug ingredient) Drug/Non Drug [...] Status Risk Notes Problem Colon cancer screening (329329417) Colon cancer screening (Z12.11) Active confirmed Problem Diarrhea (05615342) Diarrhea (R19.7) Active confirmed Problem Preprocedural examination (603036187110246) Preprocedural examination (Z01.818) Active confirmed Plan Of Treatment Pending Test Test Name Order Date Pathology 04/04/2022 Future Test Test Name Order Date COLONOSCOPY 02/11/2022 Insurance Providers Payer Name Payer Address Payer Phone Subscriber Number Group Number Insured Name Patient Relationship to Insured Coverage Start Date Coverage End Date MEDICAID OF [employer] [address] [place] [address] [phone] [id number] RJ MITCHELL Self - patient is the insured Medical (General) History Medical History History ICD Code Chronic kidney disease stage 4 --Dr. Orlando dennis Hypertension Anemia Hypothyroidism Hypercholesterolemia Asthma Anxiety Migraines Gout Depresssion Seasonal allergies Diarrhea--Negative colonosco py with me in 2009. There was no IBD or miroscopic colitis. Biopsies from the [facility] were normal. Negative labs for celiac disease. Denies DE,DM,CVA Surgical History Surgery Date(Month/Year) Ganglion cyst right wrist One ovary removed due to ovarian cyst
== END 2024-07-12 14:35 | disposition home or self-care (01) ==
PROVIDERS: PCP Internal Medicine; Referring Provider Internal Medicine; Visit Provider Internal Medicine Hypertension Specialist
DX: N18.9 Chronic kidney disease, unspecified (principal)
CPT/HCPCS: 99204

== ENCOUNTER 2024-07-15 | Outpatient (REF) | payer BC, SELFPAY ==
[2024-07-16 13:16] LABS: Total Volume 24 Hour Urine 1850 mL
[2024-07-16 13:27] LABS: Creatinine, 24Hr Urine 1.2 G/Day (1.0-2.0); Creatinine, mg/dL 63.61; Protein 24 Hr Urine 2220 mg/Day (<150); Protein mg/dL 120 mg/dL
[2024-07-16 14:32] LABS: Creatinine Clearance 26.3 mL/min (85-125)
== END 2024-07-15 00:01 | disposition home or self-care (01) ==
LOC: HO.LNP
PROVIDERS: Visit Provider Internal Medicine Hypertension Specialist
DX: N18.9 Chronic kidney disease, unspecified (principal)
CPT/HCPCS: 82575; 84156

== ENCOUNTER 2024-07-16 12:05 | Outpatient (REF) | payer BC, SELFPAY ==
[2024-07-16 12:51] LABS: Appearance Urine Clear; Color Urine Yellow; Glucose Urine UA Negative (Negative); Leukocyte Esterase Urine Small (1+) (Negative); Nitrite Urine Negative (Negative); UMIC TRIGGER UA YES; Urine Blood Negative (Negative); Urine Ketones Negative (Negative); Urine Protein 100 (2+) mg/dL (Neg-Trace)
[2024-07-16 12:53] LABS: Bacteria Urine 1+ (None Seen); Hyaline Casts Urine 0-2 /LPF (0-2); RBC Urine 0-2 /HPF (0-2)
[2024-07-16 13:10] LABS: Anion Gap 15 (12-20); Blood Urea Nitrogen 46 mg/dL (9-16); Calcium 8.9 mg/dL (8.4-10.2); Carbon Dioxide 17 mmol/L (22-29); Chloride 115 mmol/L (96-108); Estimated Glomerular Filt Rate 16; Glucose Random 94 mg/dL (60-115); Potassium 4.6 mmol/L (3.3-5.1); Sodium 142 mmol/L (135-145)
--- OUTSIDE RECORDS SUMMARY | 2024-07-16 13:23 | XMS_ITS | Encounter Summary ---
Author Organization [facility], Address [address] [place] [address] Phone Care Team Providers Care Market Relationship Manager Name Role Phone Asa Johnson DO Primary Care Provider [phone] Encounter Details Date Type Department Care Team (Late st Contact Info) Description 07/15/2022 Documentation Only [facility], - [place] [address] [facility] [address] [place] [phone] Juan R Presley MD Social History Tobacco [...] on filedocumented in this encounter Care Teams Market Relationship Manager Relationship Specialty Start Date End Date Asa Johnson DO 6 [facility] [place] [phone] PCP - General 01/08/19 documented as of this encounter
--- OUTSIDE RECORDS SUMMARY | 2024-07-16 13:23 | XMS_ITS | Patient Health Record ---
Author Organization [facility] Address [address] [place] [address] Care Team Providers Care Press Manager Name Role Phone Asa Johnson Primary Care Provider Demar Lockhart [phone] Allergies Allergen (clinical drug ingredient) Drug/Non Drug [...] Status Risk Notes Problem Colon cancer screening (533879849) Colon cancer screening (Z12.11) Active confirmed Problem Diarrhea (30651783) Diarrhea (R19.7) Active confirmed Problem Preprocedural examination (747863173750340) Preprocedural examination (Z01.818) Active confirmed Plan Of Treatment Pending Test Test Name Order Date Pathology 04/04/2022 Future Test Test Name Order Date COLONOSCOPY 02/11/2022 Insurance Providers Payer Name Payer Address Payer Phone Subscriber Number Group Number Insured Name Patient Relationship to Insured Coverage Start Date Coverage End Date [facility]ICAID [facility] [address] [place] [address] [id number] RJ MITCHELL Self - patient is the insured Medical (General) History Medical History History ICD Code Chronic kidney disease stage 4 --Dr. Orlando dennis Hypertension Anemia Hypothyroidism Hypercholesterolemia Asthma Anxiety Migraines Gout Depresssion Seasonal allergies Diarrhea--Negative colonosco py with me in 2009. There was no IBD or miroscopic colitis. Biopsies from the TI were normal. Negative labs for celiac disease. Denies SC,DM,CVA Surgical History Surgery Date(Month/Year) Ganglion cyst right wrist One ovary removed due to ovarian cyst
--- OUTSIDE RECORDS SUMMARY | 2024-07-16 13:23 | XMS_ITS | Encounter Summary ---
Author Organization [facility] [place], Address [address] [place] [address] Phone Care Team Providers Care Banana Expert Name Role Phone Asa Johnson DO Primary Care Provider Encounter Details Date Type Department Care Team (Late st Contact Info) Description 08/08/2022 Documentation Only [facility], - [place] [facility] [address] [place] [phone] Asa Johnson DO [address] [place] [address] Social History Tobacco Use Types [...] on filedocumented in this encounter Care Teams Banana Expert Relationship Specialty Start Date End Date Asa Johnson DO [address] [place] [address] PCP - General 01/08/19 documented as of this encounter
--- OUTSIDE RECORDS SUMMARY | 2024-07-16 13:24 | XMS_ITS | Encounter Summary ---
Author Organization [facility] [place], Address [address] [place] [address] Phone Care Team Providers Care Insurance Defense Attorney Name Role Phone Asa Johnson DO Primary Care Provider [phone] Encounter Details Date Type Department Care Team (Late st Contact Info) Description 02/14/2020 Orders Only [facility] - [facility] [address] [facility] [address] [place] [address] Juan R Presley MD Chronic kidney disease [...] (HCC) documented in this encounter Care Teams Insurance Defense Attorney Relationship Specialty Start Date End Date Asa Johnson DO [address] [place] [phone] PCP - General 01/08/19 documented as of this encounter
--- OUTSIDE RECORDS SUMMARY | 2024-07-16 13:24 | XMS_ITS | Encounter Summary ---
Author Organization [facility] [place], Address [address] [place] [address] Phone Care Team Providers Care Ski Maker Wood Name Role Phone Asa Johnson DO Primary Care Provider Encounter Details Date Type Department Care Team (Late st Contact Info) Description 07/15/2022 Documentation Only [facility] [place], - [place] [address] [facility] [address] [place] [phone] Juan R Presley MD Social History Tobacco [...] on filedocumented in this encounter Care Teams Ski Maker Wood Relationship Specialty Start Date End Date Asa Johnson DO 6 [facility] [phone] PCP - General 01/08/19 documented as of this encounter
--- OUTSIDE RECORDS SUMMARY | 2024-07-16 13:24 | XMS_ITS | Encounter Summary ---
Author Organization [facility] [place], Address [address] [place] [address] Phone Care Team Providers Care Forging Roll Operator Name Role Phone Asa Johnson DO Primary Care Provider [phone] Reason for Visit * Reason Comments Med Refill Encounter Details Date Type Department Care Team (Late st Contact Info) Description 02/04/2021 Refill [facility] [place] - [facility] [address] [facility] 3 [place] [phone] Juan R Presley MD Social History Tobacco [...] on filedocumented in this encounter Care Teams Forging Roll Operator Relationship Specialty Start Date End Date Asa Johnson DO [address] [place] [phone] PCP - General 01/08/19 documented as of this encounter
--- OUTSIDE RECORDS SUMMARY | 2024-07-16 13:24 | XMS_ITS | Clinical Summary ---
Author Organization [facility], Address [address] [place] [address] Phone Care Team Providers Care Store Stock Help Name Role Phone Asa Johnson Primary Care Provider [phone] Allergies Active Allergy Reactions Criticality Noted Date [...] Telephone [facility] [address] [place] [address] Lexie Salvador from Last 3 [...] 9, 01/09/2009 Insurance Medicaid [place] Care Teams Store Stock Help Relationship Specialty Start Date End Date Asa Johnson DO [address] [place] [phone] [facility] - General 01/08/19
--- OUTSIDE RECORDS SUMMARY | 2024-07-16 13:24 | XMS_ITS | Encounter Summary ---
Author Organization [facility] [place], Address [address] [place] [address] Phone Care Team Providers Care Stained Glass Glazier Helper Name Role Phone Asa Johnson DO Primary Care Provider [phone] Encounter Details Date Type Department Care Team (Late st Contact Info) Description 02/06/2023 Documentation Only [facility], - [place] [address] [facility] [address] [place] [phone] Juan R Presley MD Social History Tobacco [...] on filedocumented in this encounter Care Teams Stained Glass Glazier Helper Relationship Specialty Start Date End Date Asa Johnson DO 6 [facility] [phone] PCP - General 01/08/19 documented as of this encounter
--- OUTSIDE RECORDS SUMMARY | 2024-07-16 13:24 | XMS_ITS | Encounter Summary ---
Author Organization [facility] [place], Address [address] [place] [address] Phone Care Team Providers Care Clip Bolter And Wrapper Name Role Phone Asa Johnson DO Primary Care Provider [phone] Encounter Details Date Type Department Care Team (Late st Contact Info) Description 02/06/2023 Documentation Only [facility] [place], - [place] [address] [facility] [address] [place] [phone] Juan R Presley MD Social History Tobacco [...] on filedocumented in this encounter Care Teams Clip Bolter And Wrapper Relationship Specialty Start Date End Date Asa Johnson DO 6 [facility] [phone] PCP - General 01/08/19 documented as of this encounter
--- OUTSIDE RECORDS SUMMARY | 2024-07-16 13:24 | XMS_ITS | Encounter Summary ---
Author Organization [facility] [place], Address [address] [place] [address] Phone Care Team Providers Care Asbestos Abatement Worker Name Role Phone Asa Johnson DO Primary Care Provider [phone] Encounter Details Date Type Department Care Team (Late st Contact Info) Description 02/06/2023 Documentation Only [facility], - [place] [address] [facility] [address] [place] [phone] Juan R Presley MD Social History Tobacco [...] on filedocumented in this encounter Care Teams Asbestos Abatement Worker Relationship Specialty Start Date End Date Asa Johnson DO 6 [facility] [phone] PCP - General 01/08/19 documented as of this encounter
--- OUTSIDE RECORDS SUMMARY | 2024-07-16 13:24 | XMS_ITS | Encounter Summary ---
Author Organization [facility] [place], Address [address] [place] [address] Phone Care Team Providers Care Gravity Meter Operator Name Role Phone Asa Johnson DO Primary Care Provider [phone] Encounter Details Date Type Department Care Team (Late st Contact Info) Description 02/06/2023 Documentation Only [facility] [place], - [place] Dr [address] [facility] [address] [place] [phone] Juan R Presley MD Social History Tobacco [...] on filedocumented in this encounter Care Teams Gravity Meter Operator Relationship Specialty Start Date End Date Asa Johnson DO 6 [facility] [phone] PCP - General 01/08/19 documented as of this encounter
== END 2024-07-16 12:06 | disposition home or self-care (01) ==
LOC: HO.LAB 12:05
PROVIDERS: PCP Internal Medicine; Visit Provider Internal Medicine Hypertension Specialist
DX: N18.9 Chronic kidney disease, unspecified (principal)
CPT/HCPCS: 36415; 80048; 81001

== ENCOUNTER 2024-07-30 10:12 | Outpatient (REF) | payer BC, SELFPAY ==
--- NOTE | ~2024-07-30 | US_ITS ---
EXAMINATION: Ultrasound renal bilaterally. CLINICAL INFORMATION: Essential hypertension. COMPARISON: May 09, 2008. TECHNIQUE: Real-time ultrasound of the kidneys using grayscale technique. FINDINGS: Right kidney: 8 x 3 x 3 cm. Volume: 33 cc. Increased echotexture. Renal cortical thinning. No hydronephrosis. 1.3 cm exophytic anechoic lesion in the midportion. No flow on color Doppler interrogation. Questionable at septations. Left kidney: 11 x 4 x 4 cm. Volume: 99 cc. Increased echotexture. Renal cortical thinning. No hydronephrosis. There is a 1.4 x 1.7 cm anechoic lesion in the lower pole. There is a 1.7 cm anechoic lesion in the midportion. There is a 1.3 cm anechoic lesion in the upper pole. There is no nodular components were flow on color Doppler interrogation in any of those lesions. US/US renal BI IMPRESSION: No hydronephrosis. Bosniak type I cyst, left kidney. Bosniak type II cysts, right kidney. Consider medical renal disease with the slight asymmetric marked atrophy right kidney. . Electronically signed by: Cayden Boss MD 07/30/2024 11:12 AM EDT
--- OUTSIDE RECORDS SUMMARY | 2024-07-30 10:55 | XMS_ITS | Encounter Summary ---
Author Organization [facility] [place], Address [address] [place] [address] Phone Care Team Providers Care Paint Stripper Name Role Phone Asa Johnson DO Primary Care Provider [phone] Encounter Details Date Type Department Care Team (Late st Contact Info) Description 08/08/2022 Documentation Only [facility], - [place] [facility] [address] [place] [phone] Asa Johnson DO [address] [place] [address] Social History Tobacco Use Types [...] on filedocumented in this encounter Care Teams Paint Stripper Relationship Specialty Start Date End Date Asa Johnson DO [address] [place] [address] PCP - General 01/08/19 documented as of this encounter
== END 2024-07-30 10:13 | disposition home or self-care (01) ==
LOC: HO.US 10:12
PROVIDERS: PCP Internal Medicine; Visit Provider Internal Medicine Hypertension Specialist
DX: I12.9 Hypertensive chronic kidney disease with stage 1 through stage 4 chronic kidney disease, or unspecified chronic kidney disease (principal); N18.9 Chronic kidney disease, unspecified
CPT/HCPCS: 76775

== ENCOUNTER → 2024-07-30 10:13 | Outpatient (BNV) | payer BC, SELFPAY | PROVIDERS: PCP Internal Medicine; Visit Provider Radiology Diagnostic Radiology | DX: N28.1 Cyst of kidney, acquired (principal) | CPT/HCPCS: 76775 ==

== ENCOUNTER 2024-08-09 11:27 | Outpatient (AMB) | payer BC, SELFPAY ==
[2024-08-09 11:29] VITALS: BP 114/80; PULSE 58; O2SAT 96; BMI 35.1
--- NOTE | 2024-08-09 11:29 | HO.NEPHOV_ITS ---
Vital Signs 08/09/24 11:29 Height 5 ft 3 in Weight 198 lb BMI 35.1 BP 114/80 Blood Pressure Location Rt brachial Position Sitting Pulse 58 Pulse Source Pulse Oximeter Pulse Oximetry (%) 96 Oxygen Delivery Method Room Air Intake Visit Reasons: 1 MO FU/ Conf Bridge Toll Collector Required: No Accompanied by: Self / Same As Patient Allergies hydrocodone (From VICODIN) Allergy (Unknown, Verified 08/09/24 11:31) VOMITTING latex (Latex) Allergy (Unknown, Verified 08/09/24 11:31) HANDS GET ITCHY AND PUFFY Medication List - Last Reconciled 08/09/24 by Ernesto Mar MD albuterol sulfate mg inhalation Q6H PRN allopurinol 1 tab PO BID aripiprazole 2 tabs PO DAILY aripiprazole 5 mg PO DAILY cetirizine (Zyrtec) 10 mg PO DAILY PRN kakstaiwdex-vcxpltutt-yziekqja 200-62.5-25 mcg (Trelegy Ellipta) 1 puff inhalation DAILY furosemide 1 tab PO 2XW lorazepam 0.5 mg PO PRN propranolol 20 mg PO BID simvastatin 1 tab PO DAILY sumatriptan succinate 100 mg PO DAILY PRN HPI Comments Details: Shannon is a pleasant 48-year-old woman with CKD. She has had CKD since the age of 21. She was previously seen by Dr. Haq Recently serum creatinine was 3.4 with a EGFR of 14 mL/minute and hence this referral. 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 08/09/24 48-year-old female presenting with management of her Chronic Kidney Disease Known for long-standing Focal Segmental Glomerulosclerosis, the patient underwent imaging, which identified a small renal cyst and atrophy in the right kidney, correlated with disease progression. The recent ultrasound showed the right kidney at 8.8 cm, smaller than the left at 11 cm. Her creatinine levels have improved to 3.1 mg/dL compared to 3.59 mg/dL, with a 16% estimated glomerular filtration rate and a 26% function in a 24-hour urine collection test. She denies significant nausea or vomiting. The patient uses furosemide twice a week for fluid management. A hypertensive history has been stable with recorded blood pressure at 114/80 mmHg. Proteinuria remains a condition noted in testing, with two grams of protein in the urine collection. The potential benefit of a transplant has been addressed, considering fluctuating GFR results, bordering between stages 4 and 5 CKD. A high parathyroid hormone level reflects renal function implications, with current management including vitamin D supplementation to address secondary hyperparathyroidism. [facility] Medical History (Updated 07/12/24 @ 14:27 by Ernesto Mar MD) Plantar fasciitis Encounter for prophylactic removal of ovary Hx of bleeding following renal biopsy Ganglion of right wrist Seasonal allergies Depression Gout Migraines Anxiety Asthma HLD (hyperlipidemia) Hypothyroid Anemia HTN (hypertension) CKD (chronic kidney disease) Social History Patient Tobacco Use Status: Never used Tobacco Physical Exam Vital Signs: Last Vital Signs Pulse 58 08/09/24 11:29 BP 114/80 08/09/24 11:29 Pulse Ox 96 08/09/24 11:29 Oxygen Delivery Method Room Air 08/09/24 11:29 BMI result Body Mass Index 35.1 Const General: comfortable; No acute distress Orientation/consciousness: patient oriented x3 Eyes General: appearance normal, both eyes and all related structures Visual Lugo: normal visual lugo by confrontation Neck Neck: Yes supple and Yes no JVD Resp Effort & Inspection: normal respiratory effort and respiratory effort not decreased Cardio Palpation: no palpable S3 and no palpable S4 Heart sounds: no rubs GI Inspection: Yes normal to inspection Palpation (GI): Soft to palpation Percussion: Yes normal to percussion Auscultation: normal bowel sounds General: Yes no CVA tenderness Back/Spine/Pelvis Back: no CVA tenderness Skin General skin exam: no petechiae and no purpura Neuro General: patient oriented x3 and no focal motor deficits Extrem General: No clubbing and No edema Results Reviewed Results Reviewed: July 2024 Right kidney: 8 x 3 x 3 cm. Volume: 33 cc. Increased echotexture. Renal cortical thinning. No hydronephrosis. 1.3 cm exophytic anechoic lesion in the midportion. No flow on color Doppler interrogation. Questionable at septations. Left kidney: 11 x 4 x 4 cm. Volume: 99 cc. Increased echotexture. Renal cortical thinning. No hydronephrosis. There is a 1.4 x 1.7 cm anechoic lesion in the lower pole. There is a 1.7 cm anechoic lesion in the midportion. There is a 1.3 cm anechoic lesion in the upper pole. There is no nodular components were flow on color Doppler interrogation in any of those lesions. US/US renal BI IMPRESSION: No hydronephrosis. Bosniak type I cyst, left kidney. Bosniak type II cysts, right kidney. Consider medical renal disease with the slight asymmetric marked atrophy right kidney. . Nephrology Results: Hgb, (12.0-16.0) 13.1 g/dl 06/07/24 WBC, (4.8-10.8) 9.8 X10*3/uL 06/07/24 Plt Count, (160-400) 292 X10*3/uL 06/07/24 Sodium, (135-145) 142 mmol/L 07/16/24 Potassium, (3.3-5.1) 4.6 mmol/L 07/16/24 Chloride, (96-108) 115 mmol/L H 07/16/24 Carbon Dioxide, (22-29) 17 mmol/L L 07/16/24 BUN, (9-16) 46 mg/dL H 07/16/24 Creatinine, (0.5-1.4) 3.10 mg/dL H 07/16/24 Calcium, (8.4-10.2) 8.9 mg/dL 07/16/24 Phosphorus, (2.7-4.5) 3.8 mg/dL 07/12/24 PTH Intact, (8.7-77.1) 353.7 pg/mL H 07/12/24 Urine Protein, (Neg-Trace) 100 (2+) mg/dL H 07/16/24 Renal US 07/30/24 Assessment & Plan Assessment & Plan (1) CKD (chronic kidney disease): Comment: Stage 4 Code(s): N18.9 - Chronic kidney disease, unspecified Category: Medical Plan: 48-year-old woman with 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 At present no signs or symptoms of uremia. Fluid status is acceptable. 24 hour urine collection shows Cr CL of about 26 ml/mt and 2200 mg of proteinuria. Vit D is low and intact PTH ais elevated due to hyperparathyroidism Start Vit D and recheck iPTH Encouraged her to stay on low-sodium diet Continue to avoid nephrotoxic agents including NSAIDs. Refer for preemptive renal transplantation at [facility] 08/09/24 - Enroll in kidney transplant program as discussed. - Continue 2000 IU of vitamin D daily. - Take sodium bicarbonate, one tablet daily for high blood acid level. - Avoid red meat; prefer fish or turkey. - Stay active as able; walking is recommended. - Re-evaluate kidney function and lab tests before next appointment. - Return for a follow-up appointment in two to three months. - Report any new or concerning symptoms immediately. Orders: Orders Phosphorus 3 Months N18.9 - Chronic kidney disease, unspecified Blood Urea Nitrogen 3 Months N18.4 - Chronic kidney disease, stage 4 (severe), N18.9 - Chronic kidney disease, unspecified Parathyroid Hormone Intact 3 Months N18.9 - Chronic kidney disease, unspecified Medications: New sodium bicarbonate 650 mg PO DAILY PRN 90 tabs 1RF stomach upset Coding Level of Care Code Est Pt Level 4 (30527) Diagnoses CKD (chronic kidney disease) N18.9
--- OUTSIDE RECORDS SUMMARY | 2024-08-09 12:15 | XMS_ITS | Encounter Summary ---
Author Organization [facility] [place], Address [address] [place] [address] Phone Care Team Providers Care Furniture Shampooer Name Role Phone Asa Johnson DO Primary Care Provider [phone] Encounter Details Date Type Department Care Team (Late st Contact Info) Description 08/08/2022 Documentation Only [facility] [place], - [address] [facility] [address] [place] [phone] Asa Johnson DO [address] [place] [address] Social History Tobacco Use Types [...] on filedocumented in this encounter Care Teams Furniture Shampooer Relationship Specialty Start Date End Date Asa Johnson DO [address] [place] [address] PCP - General 01/08/19 documented as of this encounter
== END 2024-08-09 11:46 | disposition home or self-care (01) ==
LOC: HO.HKA 11:27
PROVIDERS: PCP Internal Medicine; Visit Provider Internal Medicine Hypertension Specialist
DX: N18.9 Chronic kidney disease, unspecified (principal)
CPT/HCPCS: 99214

== ENCOUNTER 2024-10-04 08:54 | Outpatient (REF) | payer BC, SELFPAY ==
--- OUTSIDE RECORDS SUMMARY | 2024-10-04 09:09 | XMS_ITS | Patient Health Record ---
Author Organization [facility] Address [address] [facility] [place] [address] Care Team Providers Care Cotton Presser Name Role Phone Asa Johnson MD Primary Care Provider Unavailabl e Black, Edna Unavailable [phone] Allergies Allergen (clinical drug ingredient) Drug/Non Drug Allergy documented on EMR Reaction Allergy Type Onset Date Status latex rash Drug Allergy Active Reason For Referral No Information Medications Medication SIG (Take, Route, Frequency, Duration) Notes Start Date End Date Status Lisinopril Active Multivitamins Active PARoxetine HCl Activ e Symbicort Active Vitamin D Active Physical Therapy . 3-4x per week for 3- 4 weeks dx plantar fasciitis hx stress fx left . 01/26/2011 Active Albuterol Active Indomethacin 25 MG 1 capsule with food Orally Twice a day; Duration: 30 day(s) Active Belladonna Alk-Phenobarbital Active Butalbital Compound/ASA Active clonazePAM 0.5 MG 0.5 tablet Orally Tw ice a day Active Garlic Active Problems Problem Type SNOMED Code ICD Code Onset Dates Problem Status W/U Status Risk Notes Problem Closed fracture of calcaneus (44613728) Stress Fx Calcaneus (825.0) Active confirmed Problem Plantar fasciitis (395495774) Plantar Fasciitis (728.71) Active confirmed Problem Gout (97086308) Gout (274.9) Active confirmed Problem Myositis (84230992) Myositis (729.1) Active confirmed Problem Pain in limb (83887493) Pain in Limb (729.5) Active confirmed Plan Of Treatment Pending Test Test Name Order Date Bone scan 12/30/2010 *Uric Acid, Serum 05/02/2011 *Sedimentation Rate-Westergren 2 X ray : Foot, left 3V 11/22/2010 X ray : Foot, left 3V 12/29/2010 [id number] TENDON SHEATH/LIGAMENT 0 03/25/2011 Insurance Providers Payer Name Payer Address Payer Phone Subscriber Number Group Number Insured Name Patient Relationship to Insured Coverage Start Date Coverage End Date [employer] Benefits [address] [address] [place] [address] [id number] Shannon Zimmer Self - patient is the insured Medical (General) History Medical History History ICD Code neuropathy kidney disease high blood pressure headaches/migraines back, hip, knee pain asthma Anxiety disorder Surgical History Surgery Date(Month/Year) cyst removal 1985
--- OUTSIDE RECORDS SUMMARY | 2024-10-04 09:09 | XMS_ITS | Encounter Summary ---
Author Organization [facility] Address [address] [place] [address] Phone Care Team Providers Care Silk Screen Repairer Name Role Phone LongAsa guillory DO Unavailable Lexie Tomlinson DRY CELL SEALER Unavailable [phone] Miladis Mckeon DRY CELL SEALER Unavailable [phone] Andre Dias MD Unavailable [phone] Alejandro Goldberg MD Unavailable [phone] Bigda, Asa A DO Primary Care Provider [phone] Bigda, Asa A DO Unavailable Bigda, Asa A DO Unavailable Bigda, Asa A DO Primary Care Provider [phone] Encounter Details Date Type Department Care Team (Latest Contact Info) Description 07/20/2017 Transcribe Orders [facility] [address] [place] [address] Juan R Presley MD 51 [facility], [address] [place], [place] [id number] [email or web address] Nephrogenous proteinuria (Primary Dx); Chronic kidney disease, stage IV (severe); 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,25(0H)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; Anemia in end-stage renal disease Social History Tobacco Use Types Packs/Day Years Used Date Smoking Tobacco: Never Assessed Comments Unknown Sex and Gender Information Value Date Recorded Sex Assigned at Female 04/07/2019 12:13 PM EST Legal Sex Female 9:27 PM EDT Gender Identity Female 04/07/2019 12:13 PM EST Sexual Orientation Straight 04/07/2019 12 :13 PM EST documented as of this encounter Plan of Treatment Upcoming Encounters Date Type Department Care Team (Late st Contact Info) Description 02/07/2025 8:15 AM EST Appointment [facility] [address] [place] [address] Asa Johnson DO 179 [facility] [place] [address] [place] [address] [email or web address] 08/01/2025 9:00 AM EDT Office Visit [facility] 22 [facility] 3rd Floor, [address] [place] [address] Demar Perdomo MD, MS 22 [facility], [address] [place] [address] [email or web address] documented as of this encounter Results * (ABNORMAL) Total protein creatinine ratio, random urine (07/20/2017 11:57 AM EDT) URINE TOTAL PROTEIN 49.4 mg/dL [facility] URINE CREATININE 164 mg/dL [facility] URINE TP CRE RATIO 0.30(H) 0 - 0.19 [facility] Urine (Urine) 07/20/2017 11: 57 AM EDT 07/20/2017 12:03 PM EDT us Juan R Presley MD URINE ORDERABLES Final Result [facility] [address] [place] [address] * (ABNORMAL) CBC and differential (07/20/2017 11:57 AM EDT) WBC 9.89 3.40 - 11.20 K/uL [facility] RBC 4.62 3.80 - 4.80 M/uL [facility] HGB 13.8 12.0 - 15.0 g/dL [facility] HCT 40.3 36.0 - 46.0 % [facility] PLT 257 130 - 400 K/uL [facility] MCV 87.2 79.0 - 98.0 fL [facility] MCH 29.9 27.0 - 34.8 pg [facility] MCHC 34.2 31.5 - 36.0 g/dL [facility] RDW 12.0 10.8 - 14.6 % [facility] MPV 11.8 9.4 - 12.4 fl [facility] NRBC 0.00 /100 WBCs [facility] ABSOLUTE NRBC 0.00 K/uL [facility] DIFF METHOD Auto [facility] NEUTS 62.8 45.30 - 77.70 % [facility] LYMPHS 23.1 12.30 - 39.70 % [facility] MONOS 7.6 4.10 - 12.80 % [facility] EOS 5.2 0 - 7.2 % [facility] BASOS 0.7 0 - 2.80 % [facility] Granulocytes, immature (%) 0.6 0.0 - 0.9 % [facility] ABSOLUTE NEUTS 6.22 1.40 - 7.70 K/uL [facility] ABSOLUTE LYMPHS 2.28 0.60 - 3.20 K/uL [facility] ABSOLUTE MONOS 0.75(H) 0.11 - 0.59 K/uL [facility] ABSOLUTE EOS 0.51(H) 0.01 - 0.50 K/uL [facility] ABSOLUTE BASOS 0.07 0.00 - 0.08 K/uL [facility] Granulocytes, immature 0.06(H) 0.00 - 0.05 K/uL [facility] Blood 07/20/2017 11:5 7 AM EDT 07/20/2017 12:02 PM EDT us Juan R Presley MD LAB BLOOD ORDERABLES Final Re sult [address] [address] * (ABNORMAL) Albumin (07/20/2017 11:57 AM EDT) ALBUMIN 3.5(L) 3.9 - 4.8 g/dL [facility] Blood 07/20/2017 11:5 7 AM EDT 07/20/2017 12:02 PM EDT us Juan R Presley MD LAB BLOOD ORDERABLES Final Re sult [address] [address] * Magnesium (07/20/2017 11:57 AM EDT) Pathologist [facility] MAGNESIUM 1.8 1.6 - 2.6 mg/dL [facility] Blood 07/20/2017 11:5 7 AM EDT 07/20/2017 12:02 PM EDT us Juan R Presley MD LAB BLOOD ORDERABLES Final Re sult [address] [address] * Phosphorus (07/20/2017 11:57 AM EDT) PHOSPHORUS 2.9 2.7 - 4.5 mg/dL [facility] Blood 07/20/2017 11:5 7 AM EDT 07/20/2017 12:02 PM EDT Juan R Presley MD LAB BLOOD ORDERABLES Final Re sult Performing Organization Address City/[facility]/ZIP Co de Phone Number [address] [address] * (ABNORMAL) Basic metabolic panel (07/20/2017 11:57 AM EDT) SODIUM 142 133 - 146 mmol/L [facility] CHLORIDE 106 96 - 108 mmol/L [facility] POTASSIUM 3.7 3.3 - 5.1 mmol/L [facility] CO2 19(L) 21 - 35 mmol/L [facility] BUN 41(H) 6 - 19 mg/dL [facility] CREATININE 2.50(H) 0.5 - 1.5 mg/dL [facility] GLUCOSE 74 70 - 99 mg/dL [facility] CALCIUM 9.3 8.4 - 10.3 mg/dL [facility] EGFR 23(L) >59 mL/min/1.7 3m2 [facility] Comment:If patient is black, multiply result by 1.159. The eGFR calculation has changed from the MDRD equation to the CKD-EPI equation as of May 09, 2017. ANION GAP 21(H) 10 - 20 mmol/L [facility] Blood 07/20/2017 11:5 7 AM EDT 07/20/2017 12:02 PM EDT us Juan R Presley MD LAB BLOOD ORDERABLES Final Re sult Performing Organization Address City/[facility]/ZIP Co de Phone Number [address] [address] * (ABNORMAL) Parathyroid hormone (PTH) (07/20/2017 11:57 AM EDT) PARATHYROID HORMONE 80(H) 15 - 65 pg/mL [facility] Blood 07/20/2017 11:5 7 AM EDT 07/20/2017 12:02 PM EDT Juan R Presley MD LAB BLOOD ORDERABLES Final Re sult Performing Organization Address City/[facility]/ZIP Co de Phone Number [address] [address] documented in this encounter Visit Diagnoses Diagnosis Nephrogenous proteinuria- Primary Chronic kidney disease, stage IV (severe) Chronic kidney disease, Stage IV (severe) 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,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) Anemia in end-stage renal disease Anemia in chronic kidney disease documented in this encounter Care Teams Silk Screen Repairer Relationship Specialty Start Date End Date Asa Johnson DO PCP - General 03/09/17 03/28/24 Asa Johnson DO 179 [place] [address] PCP - General Internal Medicine 03/29/24 Asa Johnson DO Historical LMR Provider 12/19/16 Lexie Tomlinson NP [address] [place] [phone] Historical LMR Provider 12/19/16 2 Miladis Mckeon NP 21 [place] [address] [email or web address] Historical LMR Provider 12/19/16 2 Andre Dias MD [address] [address] Historical LMR Provider 12/19/16 Alejandro Goldberg MD [address] [place] [address] Historical LMR Provider 12/19/16 2 Asa Johnson DO 179 [place] [address] Insurance Assigned Provider 12/09/17 03/10/18 Asa Johnson DO 179 [place] [address] [email or web address] Insurance Assigned Provider 04/07/18 07/23/22 documented as of this encounter Additional Source Comments The information contained in this document represents components of the legal health record. It is not the complete legal health record.[facility]
--- OUTSIDE RECORDS SUMMARY | 2024-10-04 09:09 | XMS_ITS | Patient Health Record ---
Author Organization [facility] Address [address] [place] [phone] Care Team Providers Care Card Brusher Name Role Phone Asa Johnson Primary Care Provider Demar Lockhart [phone] Allergies Allergen (clinical drug ingredient) Drug/Non Drug [...] Status Risk Notes Problem Colon cancer screening (077822526) Colon cancer screening (Z12.11) Active confirmed Problem Diarrhea (87994879) Diarrhea (R19.7) Active confirmed Problem Preprocedural examination (964125275334507) Preprocedural examination (Z01.818) Active confirmed Plan Of Treatment Pending Test Test Name Order Date Pathology 04/04/2022 Future Test Test Name Order Date COLONOSCOPY 02/11/2022 Insurance Providers Payer Name Payer Address Payer Phone Subscriber Number Group Number Insured Name Patient Relationship to Insured Coverage Start Date Coverage End Date [facility] [address] [place] [address] [phone] [id number] RJ MITCHELL Self - patient is the insured Medical (General) History Medical History History ICD Code Chronic kidney disease stage 4 --Dr. Orlando dennis Hypertension Anemia Hypothyroidism Hypercholesterolemia Asthma Anxiety Migraines Gout Depresssion Seasonal allergies Diarrhea--Negative colonosco py with me in 2009. There was no IBD or miroscopic colitis. Biopsies from the [facility] were normal. Negative labs for celiac disease. Denies LA,DM,CVA Surgical History Surgery Date(Month/Year) Ganglion cyst right wrist One ovary removed due to ovarian cyst
--- OUTSIDE RECORDS SUMMARY | 2024-10-04 09:09 | XMS_ITS | Clinical Summary ---
Author Organization [facility], Address [address] [place] [address] Phone Care Team Providers Care Slot Machine Repairer Name Role Phone Asa Johnson Primary Care Provider [phone] Allergies Active Allergy Reactions Criticality Noted Date [...] 0 08/21/2019 Secondary hyperparathyroidism 07/14/2020 Anemia 08/21/2019 Immunizations Immunization Administration Dates Next Due Influenza, [...] 68 02/01/2023 7:37 AM EST Temperature 36.7 C (98 F) 01/24/2019 12:00 PM EST Respiratory Rate 14 [...] PCV) 10/27/2019 10/26/2018, 01/09/2009 Influenza Vaccine (#1) 2024 2, 12/06/2021, 12/04/2020, Additional history exists Pneumococcal Vaccine: 50+ Years Discontinued 9, 01/09/2009 Insurance Medicaid [place] Care Teams Slot Machine Repairer Relationship Specialty Start Date End Date Asa Johnson DO [address] [place] [phone] PCP - General 01/08/19
[2024-10-04 10:04] LABS: Alanine Aminotransferase 14 U/L (0-31); Albumin Level 3.6 g/dL (3.5-5.0); Alkaline Phosphatase 58 U/L (39-117); Anion Gap 10 (12-20); Aspartate Amino Transferase 19 U/L (5-31); Blood Urea Nitrogen 52 mg/dL (9-16); Calcium 8.8 mg/dL (8.4-10.2); Carbon Dioxide 21 mmol/L (22-29); Chloride 115 mmol/L (96-108); Cholesterol 197 mg/dL (<200); Estimated Glomerular Filt Rate 15; HDL Cholesterol 38 mg/dL (>40); Potassium 4.0 mmol/L (3.3-5.1); Sodium 142 mmol/L (135-145); Total Protein 6.3 g/dL (6.5-8.0); Triglycerides 106 mg/dL (<150)
== END 2024-10-04 08:55 | disposition home or self-care (01) ==
LOC: HO.LAB 08:54
PROVIDERS: PCP Internal Medicine; Visit Provider Internal Medicine
DX: E78.5 Hyperlipidemia, unspecified (principal)
CPT/HCPCS: 36415; 80053; 80061

== ENCOUNTER 2024-11-12 13:16 | Outpatient (REF) | payer BC, SELFPAY ==
[2024-11-12 15:18] LABS: Parathyroid Hormone Intact 127.3 pg/mL (8.7-77.1)
[2024-11-12 15:19] LABS: Blood Urea Nitrogen 41 mg/dL (9-16)
[2024-11-12 15:30] LABS: Appearance Urine Cloudy; Glucose Urine UA Negative (Negative); PH 5.5 (5.0-9.0); Specific Gravity - Urine 1.010 (1.005-1.025); UMIC TRIGGER UA YES
--- OUTSIDE RECORDS SUMMARY | 2024-11-12 15:38 | XMS_ITS | Encounter Summary ---
Author Organization [facility] Address [address] [place] [address] Phone Care Team Providers Care Refrigeration System Installer Name Role Phone LongAsa guillory DO Unavailable Lexie Tomlinson GILL BOX OPERATOR Unavailable [phone] Miladis Mckeon GILL BOX OPERATOR Unavailable [phone] Andre Dias MD Unavailable [phone] Alejandro Goldberg MD Unavailable [phone] Bigda, Asa A DO Primary Care Provider [phone] Bigda, Asa A DO Unavailable Bigda, Asa A DO Unavailable Bigda, Asa A DO Primary Care Provider [phone] Encounter Details Date Type Department Care Team (Latest Contact Info) Description 07/20/2017 Transcribe Orders [facility] [address] [place] [address] Juan R Presley MD 51 [facility], [address] [place], [place] [id number] [email or web address] Nephrogenous proteinuria (Primary Dx); Chronic kidney disease, [...] Care Team (Late st Contact Info) Description 11/14/2024 8:15 AM EDT Hospital Encounter [facility] [address] [place] [address] Asa Johnson, 179 [facility] [place] [address] [email or web address] 08/01/2025 9:00 AM EDT Office Visit [facility] 22 [facility] 3rd Floor, [address] [place] [address] Demar Perdomo MD, MS 22 [facility], [address] [place] [address] [email or web address] documented as of this encounter Results * (ABNORMAL) Total protein creatinine ratio, random urine (07/20/2017 11:57 AM EDT) URINE TOTAL PROTEIN 49.4 mg/dL [facility] URINE CREATININE 164 mg/dL [facility] URINE TP CRE RATIO 0.30(H) 0 - 0.19 [facility] Urine (Urine) 07/20/2017 11: 57 AM EDT 07/20/2017 12:03 PM EDT us Juan R Presley MD URINE ORDERABLES Final Result [facility] [address] [place] [address] * (ABNORMAL) CBC and differential (07/20/2017 11:57 AM EDT) WBC 9.89 3.40 - 11.20 K/uL [facility] RBC 4.62 3.80 - 4.80 M/uL [facility] HGB 13.8 12.0 - 15.0 g/dL [facility] HCT 40.3 36.0 - 46.0 % [facility] PLT 257 130 - 400 K/uL [facility] MCV 87.2 79.0 - 98.0 fL [facility] MCH 29.9 27.0 - 34.8 pg [facility] MCHC 34.2 31.5 - 36.0 g/dL [facility] RDW 12.0 10.8 - 14.6 % [facility] MPV 11.8 9.4 - 12.4 fl [facility] NRBC 0.00 /100 WBCs [facility] ABSOLUTE NRBC 0.00 K/uL [facility] DIFF METHOD Auto [facility] NEUTS 62.8 45.30 - 77.70 % [facility] LYMPHS 23.1 12.30 - 39.70 % [facility] MONOS 7.6 4.10 - 12.80 % [facility] EOS 5.2 0 - 7.2 % [facility] BASOS 0.7 0 - 2.80 % [facility] Granulocytes, immature (%) 0.6 0.0 - 0.9 % [facility] ABSOLUTE NEUTS 6.22 1.40 - 7.70 K/uL [facility] ABSOLUTE LYMPHS 2.28 0.60 - 3.20 K/uL [facility] ABSOLUTE MONOS 0.75(H) 0.11 - 0.59 K/uL [facility] ABSOLUTE EOS 0.51(H) 0.01 - 0.50 K/uL [facility] ABSOLUTE BASOS 0.07 0.00 - 0.08 K/uL [facility] Granulocytes, immature 0.06(H) 0.00 - 0.05 K/uL [facility] Blood 07/20/2017 11:5 7 AM EDT 07/20/2017 12:02 PM EDT us Juan R Presley MD LAB BLOOD ORDERABLES Final Re sult [facility] [address] [place] [address] * (ABNORMAL) Albumin (07/20/2017 11:57 AM EDT) ALBUMIN 3.5(L) 3.9 - 4.8 g/dL [facility] Blood 07/20/2017 11:5 7 AM EDT 07/20/2017 12:02 PM EDT us Juan R Presley MD LAB BLOOD ORDERABLES Final Re sult [address] [address] * Magnesium (07/20/2017 11:57 AM EDT) Pathologist [facility] MAGNESIUM 1.8 1.6 - 2.6 mg/dL [facility] Blood 07/20/2017 11:5 7 AM EDT 07/20/2017 12:02 PM EDT us Juan R Presley MD LAB BLOOD ORDERABLES Final Re sult [address] [address] * Phosphorus (07/20/2017 11:57 AM EDT) PHOSPHORUS 2.9 2.7 - 4.5 mg/dL [facility] Blood 07/20/2017 11:5 7 AM EDT 07/20/2017 12:02 PM EDT Juan R Presley MD LAB BLOOD ORDERABLES Final Re sult Performing Organization Address City/[facility]/ZIP Co de Phone Number [address] [address] * (ABNORMAL) Basic metabolic panel (07/20/2017 11:57 AM EDT) SODIUM 142 133 - 146 mmol/L [facility] CHLORIDE 106 96 - 108 mmol/L [facility] POTASSIUM 3.7 3.3 - 5.1 mmol/L [facility] CO2 19(L) 21 - 35 mmol/L [facility] BUN 41(H) 6 - 19 mg/dL [facility] CREATININE 2.50(H) 0.5 - 1.5 mg/dL [facility] GLUCOSE 74 70 - 99 mg/dL [facility] CALCIUM 9.3 8.4 - 10.3 mg/dL [facility] EGFR 23(L) >59 mL/min/1.7 3m2 [facility] Comment:If patient is black, multiply result by 1.159. The eGFR calculation has changed from the MDRD equation to the CKD-EPI equation as of May 09, 2017. ANION GAP 21(H) 10 - 20 mmol/L [facility] Blood 07/20/2017 11:5 7 AM EDT 07/20/2017 12:02 PM EDT Juan R Presley MD LAB BLOOD ORDERABLES Final Re sult Performing Organization Address City/[facility]/ZIP Co de Phone Number [address] [address] * (ABNORMAL) Parathyroid hormone (PTH) (07/20/2017 11:57 AM EDT) PARATHYROID HORMONE 80(H) 15 - 65 pg/mL [facility] Blood 07/20/2017 11:5 7 AM EDT 07/20/2017 12:02 PM EDT Juan R Presley MD LAB BLOOD ORDERABLES Final Re sult Performing Organization Address City/[facility]/ZIP Co de Phone Number [address] [address] documented in this encounter Visit Diagnoses Diagnosis Nephrogenous proteinuria- Primary Chronic kidney disease, stage IV (severe) Chronic kidney disease, Stage IV (severe) 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,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) Anemia in end-stage renal disease Anemia in chronic kidney disease documented in this encounter Care Teams Refrigeration System Installer Relationship Specialty Start Date End Date Asa Johnson DO PCP - General 03/09/17 03/28/24 Asa Johnson DO 179 [facility] [place] [address] PCP - General Internal Medicine 03/29/24 Asa Johnson DO Historical LMR Provider 12/19/16 Lexie Tomlinson NP [address] [place] [phone] Historical LMR Provider 12/19/16 2 Miladis Mckeon NP 21 [place] [address] [email or web address] Historical LMR Provider 12/19/16 2 Andre Dias MD [address] [address] Historical LMR Provider 12/19/16 Alejandro Goldberg MD 61 [place] [address] Historical LMR Provider 12/19/16 2 Asa Johnson DO 179 [facility] [place] [address] Insurance Assigned Provider 12/09/17 03/10/18 Asa Johnson DO 179 [place] [address] [email or web address] Insurance Assigned Provider 04/07/18 07/23/22 documented as of this encounter Additional Source Comments The information contained in this document represents components of the legal health record. It is not the complete legal health record.[facility]
--- OUTSIDE RECORDS SUMMARY | 2024-11-12 15:38 | XMS_ITS | Encounter Summary ---
Author Organization [facility] Address [address] [address] Phone Care Team Providers Care 3Rd Pressman Name Role Phone Alex Asa Hernández DO Unavailable Andre Dias MD Unavailable [phone] Asa Johnson DO Primary Care Provider [phone] Asa Johnson DO Primary Care Provider [phone] Reason for Visit * Reason Comments Medication Refill Encounter Details Date Type Department Care Team (Late st Contact Info) Description [facility]20[facility] [address] [place] [address] 3rd Floor, [address] [place] [address] Demar Perdomo MD, MS 22 [facility], [address] [address] [email or web address] Medication Refill Social History Tobacco Use Types Packs/Day Years Used Date Smoking Tobacco: Never Smokeless Tobacco: Never Alcohol Use Standard Drinks/Week Comments Yes 0 (1 standard drink = 0.6 oz pur e alcohol) rare Education Answer Date Recorded Are you interested in more education? Not on alan e 07/01/2022 Are you concerned about learning? Not on file 07/01/2022 No 07/01/2022 No 07/01/2022 Digital Access Answer Date Recorded No 08/01/2022 No 08/01/2022 Reliable internet access at home? Not on file 08/01/2022 Device with a working camera? Not on file Comments No Sex and Gender Information Value Date Recorded Sex Assigned at Female 04/07/2019 12:13 PM EST Legal Sex Female 9:27 PM EDT Gender Identity Female 04/07/2019 12:13 PM EST Sexual Orientation Straight 04/07/2019 12 :13 PM EST documented as of this encounter Progress Notes * Isabelle Guaman MA - 10/16/2023 9:05 AM EDT Rx reviewed documented in this encounter Plan of Treatment Upcoming Encounters Date Type Department Care Team (Late st Contact Info) Description 11/14/2024 8:15 AM EDT Hospital Encounter [facility] [address] [place] [address] Asa Johnson DO [address] [place] [address] [email or web address] 08/01/2025 9:00 AM EDT Office Visit [facility] [address] [place] [address] 3rd Floor, [address] [place] [address] Demar Perdomo MD, MS 22 [facility], [address] [address] documented as of this encounter Visit Diagnoses Diagnosis Medication refill- Primary Issue of repeat prescriptions documented in this encounter Care Teams 3Rd Pressman Relationship Specialty Start Date End Date Asa Johnson DO [email or web address] PCP - General 03/09/17 03/28/24 Asa Johnson DO 179 [facility] [address] PCP - General Internal Medicine 03/29/24 Asa Johnson DO [email or web address] Historical LMR Provider 12/19/16 Andre Dias MD [address] [place] [address], [place] [address] [email or web address] Historical LMR Provider 12/19/16 documented as of this encounter Additional Source Comments The information contained in this document represents components of the legal health record. It is not the complete legal health record.[facility]
--- OUTSIDE RECORDS SUMMARY | 2024-11-12 15:38 | XMS_ITS | Encounter Summary ---
Author Organization [facility] Address [address] [address] Phone Care Team Providers Care Auto Mechanic Supervisor Name Role Phone Asa Johnson DO Unavailable Lexie Tomlinson PAINTER AIRBRUSH Unavailable [phone] Miladis Mckeon PAINTER AIRBRUSH Unavailable [phone] Andre Dias MD Unavailable [phone] Alejandro Goldberg MD Unavailable [phone] Asa Johnson DO Primary Care Provider [phone] Asa Johnson DO Unavailable Asa Johnson DO Primary Care Provider [phone] Encounter Details Date Type Department Care Team (Late st Contact Info) Description 03/19/2019 Transcribe Orders [facility] [address] [place] [address] Asa Johnson DO [address] [facility] [place], [place] [id number] Chronic kidney disease, stage IV (severe) (Primary Dx) Social History Tobacco Use Types Packs/Day Years Used Date Smoking Tobacco: Never Smokeless Tobacco: Never Alcohol Use Standard Drinks/Week Comments Not Currently 0 (1 standard drink = 0.6 oz pur e alcohol) Comments No Sex and Gender Information Value [...] EDT Hospital Encounter [facility] [address] [place] [address] Asa Johnson DO 179 [facility] [place] [address] [place] [address] [email or web address] 08/01/2025 9:00 AM EDT Office Visit [facility] [address] [facility] 3rd Floor, [address] [place] [address] Demar Perdomo MD, MS 22 [facility], [address] [place] [address] [email or web address] documented as of this encounter Results * (ABNORMAL) Comprehensive metabolic panel (03/19/2019 10:13 AM EST) SODIUM 139 133 - 146 mmol/L [facility] POTASSIUM 4.1 3.3 - 5.1 mmol/L [facility] CHLORIDE 107 96 - 108 mmol/L [facility] CO2 19(L) 21 - 35 mmol/L [facility] BUN 47(H) 6 - 19 mg/dL [facility] CREATININE 2.90(H) 0.5 - 1.5 mg/dL [facility] GLUCOSE 87 70 - 99 mg/dL [facility] ALBUMIN 4.1 3.9 - 4.8 g/dL [facility] TOTAL PROTEIN 7.5 6.5 - 8.0 g/dL [facility] CALCIUM 9.4 8.4 - 10.3 mg/dL [facility] ALKALINE PHOSPHATASE 57 39 - 117 U/L [facility] TOTAL BILIRUBIN 0.2 0.0 - 1.2 mg/dL [facility] AST 17 0 - 37 U/L [facility] ALT 17 0 - 40 U/L [facility] GLOBULIN 3.4 1 - 4.8 g/dL [facility] EGFR 19(L) >59 mL/min/1.7 3m2 [facility] Comment:If patient is black, multiply result by 1.159. Estimated glomerular filtration rate calculated using the CKD-EPI equation. ANION GAP 17 10 - 20 mmol/L [facility] Blood 03/19/2019 10:1 3 AM EST 03/19/2019 12:40 PM EST us Asa A Bigda DO LAB BLOOD ORDERABLES Final Resul t Performing Organization Address [facility] Co de Phone Number [address] [address] * (ABNORMAL) Uric acid (03/19/2019 10:13 AM EST) URIC ACID 8.3(H) 2.4 - 7.0 mg/dL [facility] Blood 03/19/2019 10:1 3 AM EST 03/19/2019 12:40 PM EST us Asa A Bigda DO LAB BLOOD ORDERABLES Final Resul t Performing Organization Address [facility] de Phone Number [address] [address] * 25-OH vitamin D (03/19/2019 10:13 AM EST) 25 OH VIT D (TOTAL) 42 30 - 60 ng/mL [facility] Blood 03/19/2019 10:1 3 AM EST 03/19/2019 12:40 PM EST us Asa A Bigda DO LAB BLOOD ORDERABLES Final Resul t Performing Organization Address [facility] de Phone Number [address] [address] * Magnesium (03/19/2019 10:13 AM EST) MAGNESIUM 2.1 1.6 - 2.6 mg/dL [facility] Blood 03/19/2019 10:1 3 AM EST 03/19/2019 12:40 PM EST us Asa A Bigda DO LAB BLOOD ORDERABLES Final Resul t Performing Organization Address City/[facility]/ZIP Co de Phone Number [address] [address] * (ABNORMAL) Parathyroid hormone (PTH) (03/19/2019 10:13 AM EST) PARATHYROID HORMONE 71(H) 15 - 65 pg/mL [facility] Blood 03/19/2019 10:1 3 AM EST 03/19/2019 1:28 PM EST us Asa A Bigda DO LAB BLOOD ORDERABLES Final Resul t Performing Organization Address [facility] de Phone Number [address] [address] * (ABNORMAL) CBC and differential (03/19/2019 10:13 AM EST) WBC 12.71(H) 3.40 - 11.20 K/uL [facility] RBC 4.79 3.80 - 4.80 M/uL [facility] HGB 14.5 12.0 - 15.0 g/dL [facility] HCT 42.2 36.0 - 46.0 % [facility] PLT 284 130 - 400 K/uL [facility] MCV 88.1 79.0 - 98.0 fL [facility] MCH 30.3 27.0 - 34.8 pg [facility] MCHC 34.4 31.5 - 36.0 g/dL [facility] RDW 12.7 10.8 - 14.6 % [facility] MPV 10.4 9.4 - 12.4 [facility] NRBC 0.00 0.00 /100 WBCs [facility] ABSOLUTE NRBC 0.00 0.00 K/uL [facility] DIFF METHOD Auto [facility] NEUTS 79.1(H) 45.30 - 77.70 % [facility] LYMPHS 14.0 12.30 - 39.70 % [facility] MONOS 4.3 4.10 - 12.80 % [facility] EOS 1.1 0 - 7.2 % [facility] BASOS 0.6 0 - 2.80 % [facility] Granulocytes, immature (%) 0.9 0.0 - 0.9 % [facility] ABSOLUTE NEUTS 10.05(H) 1.40 - 7.70 K/uL [facility] ABSOLUTE LYMPHS 1.78 0.60 - 3.20 K/uL [facility] ABSOLUTE MONOS 0.55 0.11 - 0.59 K/uL [facility] ABSOLUTE EOS 0.14 0.01 - 0.50 K/uL [facility] ABSOLUTE BASOS 0.07 0.00 - 0.08 K/uL [facility] Granulocytes, immature 0.12(H) 0.00 - 0.05 K/uL [facility] Blood 03/19/2019 10:1 3 AM EST 03/19/2019 12:40 PM EST us Asa Johnson DO LAB BLOOD ORDERABLES Final Resul t Performing Organization Address City/State/[facility] Co de Phone Number [facility] [address] [place] [address] documented in this encounter Visit Diagnoses Diagnosis Chronic kidney disease, stage IV (severe)- Primary Chronic kidney disease, Stage IV (severe) documented in this encounter Care Teams Auto Mechanic Supervisor Relationship Specialty Start Date End Date Asa Johnson DO PCP - General 03/09/17 03/28/24 Asa Johnson DO [address] [place] [address] PCP - General Internal Medicine 03/29/24 Asa Johnson DO Historical LMR Provider 12/19/16 Lexie Tomlinson NP [address] [place] [address] Historical LMR Provider 12/19/16 2 Miladis Mckeon NP [address] [place] [address] [email or web address] Historical LMR Provider 12/19/16 2 Andre Dias MD [address] [address] Historical LMR Provider 12/19/16 Alejandro Goldberg MD [address] [place] [address] Historical LMR Provider 12/19/16 2 Asa Johnson DO [address] [place] [address] [email or web address] Insurance Assigned Provider 04/07/18 07/23/22 documented as of this encounter Additional Source Comments The information contained in this document represents components of the legal health record. It is not the complete legal health record.[facility]
--- OUTSIDE RECORDS SUMMARY | 2024-11-12 15:38 | XMS_ITS | Encounter Summary ---
Author Organization [facility] Address [address] [address] Phone Care Team Providers Care Card Stripper Name Role Phone Alex Asa Hernández DO Unavailable Andre Dias MD Unavailable [phone] Asa Johnson DO Primary Care Provider [phone] sAa Johnson DO Primary Care Provider [phone] Reason for Visit * Reason Comments Medication Refill Encounter Details Date Type Department Care Team (Late st Contact Info) Description [facility] [address] [place] [address] 3rd Floor, [address] [place] [address] Alejandro Torres MD [address] [place] [address], [address] [address] [email or web address] Medication Refill Social History Tobacco Use Types [...] EDT Hospital Encounter [facility] [address] [place] [address] Asa Johnson DO 179 [facility] [place] [address] 08/01/2025 9:00 AM EDT Office Visit [facility] [address] [place] [address] 3rd Floor, [address] [place] [address] Demar Perdomo MD, MS 22 [facility], [address] [place] [address] documented as of this encounter Visit Diagnoses Diagnosis Moderate persistent asthma without complication documented in this encounter Care Teams Card Stripper Relationship Specialty Start Date End Date Asa Johnson DO PCP - General 03/09/17 03/28/24 Asa Johnson DO 179 [facility] [place] [address] PCP - General Internal Medicine 03/29/24 Asa Johnson DO Historical LMR Provider 12/19/16 Andre Dias MD 22 [facility], [facility] [address] [place] [address] [email or web address] Historical LMR Provider 12/19/16 documented as of this encounter Additional Source Comments The information contained in this document represents components of the legal health record. It is not the complete legal health record.[facility]
--- OUTSIDE RECORDS SUMMARY | 2024-11-12 15:38 | XMS_ITS | Encounter Summary ---
Author Organization [facility] Address [address] [facility] [address] [place] [address] Phone Care Team Providers Care Teletype Technician Name Role Phone Asa Johnson DO Unavailable Andre Dias MD Unavailable [phone] Asa Johnson DO Primary Care Provider [phone] Asa Johnson DO Primary Care Provider [phone] Reason for Visit * Reason Onset Date Comments Medication Refill 08/16/2023 Encounter Details Date Type Department Care Team (Late st Contact Info) Description 08/16/2023 Refill [facility] 22 [facility] 3rd Floor, [address] [place] [address] Isabelle Guaman MA 22 [place] [address] Medication Refill Social History Tobacco Use Types [...] Progress Notes * Isabelle Guaman MA - 08/16/2023 1:28 PM EDT Rx reviewed documented in this encounter Plan of Treatment Upcoming Encounters Date Type Department Care Team (Late st Contact Info) Description 11/14/2024 8:15 AM EDT Hospital Encounter [facility] [address] [place] [address] Asa Johnson DO 179 [facility] [place] [address] 08/01/2025 9:00 AM EDT Office Visit [facility] 22 [facility] 3rd Floor, [address] [place] [address] Demar Perdomo MD, MS 22 [facility], [address] [address] [email or web address] documented as of this encounter Visit Diagnoses Diagnosis Moderate persistent asthma without complication documented in this encounter Care Teams Teletype Technician Relationship Specialty Start Date End Date Asa Johnson DO PCP - General 03/09/17 03/28/24 Asa Johnson DO 179 [facility] [place] [address] PCP - General Internal Medicine 03/29/24 Asa Johnson DO [email or web address] Historical LMR Provider 12/19/16 Andre Dias MD [address] [place] [address] [email or web address] Historical LMR Provider 12/19/16 documented as of this encounter Additional Source Comments The information contained in this document represents components of the legal health record. It is not the complete legal health record.[facility]
--- OUTSIDE RECORDS SUMMARY | 2024-11-12 15:39 | XMS_ITS | Encounter Summary ---
Author Organization [facility] Address [address] [address] Phone Care Team Providers Care Sheep Farmer Name Role Phone Asa Johnson DO Unavailable Lexie Tomlinson EQUIPMENT MAINTENANCE SUPERVISOR Unavailable Miladis Mckeon EQUIPMENT MAINTENANCE SUPERVISOR Unavailable Andre Dias MD Unavailable [phone] Alejandro Goldberg MD Unavailable [phone] Asa Johnson DO Primary Care Provider [phone] Asa Johnson DO Unavailable Asa Johnson DO Unavailable Alex, Asa Hernández DO Primary Care Provider [phone] Encounter Details Date Type Department Care Team (Late st Contact Info) Description 03/09/2018 Ancillary Orders Virtual Department 30 [place] [address] Asa Johnson DO 179 [facility] [place], [place] [id number] Visit for screening mammogram Social History Tobacco Use Types Packs/Day Years [...] EDT Hospital Encounter [facility] 30 [place] [address] Asa Johnson DO 179 [facility] [place] [address] 08/01/2025 9:00 AM EDT Office Visit [facility] 22 [facility] 3rd Floor, [address] [place] [address] Demar Perdomo MD, MS 22 [facility], [address] [place] [address] documented as of this encounter Results * BI MAMMOGRAM SCREENING WITH TOMOSYNTHESIS WITH CAD (BILATERAL) (03/26/2018 10:24 AM EST) Anatomical Region Laterality Modality Breast Left, Breast Right, Breast Bilateral Bila teral Mammography 03/26/2018 11:3 0 AM EST Impressions 03/26/2018 11:51 AM EST No findings suspicious for malignancy are identified. In the absence of a worrisome palpable abnormality, annual screening mammography is recommended. BI-RADS CATEGORY: 1 - Negative. DENSITY: The breast tissue is almost entirely fat. POS [email or web address] Narrative 03/26/2018 11:51 AM EST COMPARISON: 12/29/2015 and 01/10/2017 Bilateral 3-D tomosynthesis with 2-D reconstructions in the CC and MLO projection. Computer-aided detection system also utilized. No new mass, asymmetry, architectural distortion or suspicious calcifications have become apparent on either side. Procedure Note Roque Rosario MD - 03/26/2018 COMPARISON: 12/29/2015 and 01/10/2017 Bilateral 3-D tomosynthesis with 2-D reconstructions in the CC and MLOprojection. Computer-aided detection system also utilized. No new mass, asymmetry, architectural distortion or suspiciouscalcifications have become apparent on either side. IMPRESSION: No findings suspicious for malignancy are identified. In the absence of aworrisome palpable abnormality, annual screening mammography isrecommended. BI-RADS CATEGORY: 1 - Negative. DENSITY: The breast tissue is almost entirely fat. POS CDHMAM2 us Asa Johnson DO IMG MG EXAMS Final Result documented in this encounter Visit Diagnoses Diagnosis Visit for screening mammogram Visit for screening mammogram documented in this encounter Care Teams Sheep Farmer Relationship Specialty Start Date End Date Asa Johnson DO PCP - General 03/09/17 03/28/24 Asa Johnson DO [address] [place] [address] PCP - General Internal Medicine 03/29/24 Asa Johnson DO Historical LMR Provider 12/19/16 Lexie Tomlinson NP [address] [place] [address] Historical LMR Provider 12/19/16 2 Miladis Mckeon NP [address] [place] [address] [email or web address] Historical LMR Provider 12/19/16 2 Andre Dias MD [address] [place] [address] [email or web address] Historical LMR Provider 12/19/16 Alejandro Goldberg MD [address] [place] [address] Historical LMR Provider 12/19/16 2 Asa Johnson DO 179 [place] [address] [email or web address] Insurance Assigned Provider 12/09/17 03/10/18 Asa Johnson DO 179 [place] [address] [email or web address] Insurance Assigned Provider 04/07/18 07/23/22 documented as of this encounter Additional Source Comments The information contained in this document represents components of the legal health record. It is not the complete legal health record.[facility]
--- OUTSIDE RECORDS SUMMARY | 2024-11-12 15:39 | XMS_ITS | Clinical Summary ---
Author Organization [facility], Address [address] [place] [address] Phone Care Team Providers Care Real Estate Financial Analyst Name Role Phone Asa Johnson Primary Care Provider [phone] Allergies Active Allergy Reactions Criticality Noted Date [...] 9, 01/09/2009 Insurance Medicaid [place] Care Teams Real Estate Financial Analyst Relationship Specialty Start Date End Date Asa Johnson DO [address] [place] [phone] PCP - General 01/08/19
--- OUTSIDE RECORDS SUMMARY | 2024-11-12 15:39 | XMS_ITS | Patient Health Record ---
Author Organization [facility] Address [address] [place] [phone] Care Team Providers Care Tiler Name Role Phone Asa Johnson Primary Care Provider Demar Lockhart [phone] Allergies Allergen (clinical drug ingredient) Drug/Non Drug [...] Status Risk Notes Problem Colon cancer screening (353803136) Colon cancer screening (Z12.11) Active confirmed Problem Diarrhea (24736480) Diarrhea (R19.7) Active confirmed Problem Preprocedural examination (313571851989545) Preprocedural examination (Z01.818) Active confirmed Plan Of Treatment Pending Test Test Name Order Date Pathology 04/04/2022 Future Test Test Name Order Date COLONOSCOPY 02/11/2022 Insurance Providers Payer Name Payer Address Payer Phone Subscriber Number Group Number Insured Name Patient Relationship to Insured Coverage Start Date Coverage End Date [facility] [address] [place] [address] [id number] RJ MITCHELL Self - patient is the insured Medical (General) History Medical History History ICD Code Chronic kidney disease stage 4 --Dr. [place] dennis Hypertension Anemia Hypothyroidism Hypercholesterolemia Asthma Anxiety Migraines Gout Depresssion Seasonal allergies Diarrhea--Negative colonosco py with me in 2009. There was no IBD or miroscopic colitis. Biopsies from the [facility] were normal. Negative labs for celiac disease. Denies [place],DM,CVA Surgical History Surgery Date(Month/Year) Ganglion cyst right wrist One ovary removed due to ovarian cyst
--- OUTSIDE RECORDS SUMMARY | 2024-11-12 15:39 | XMS_ITS | Encounter Summary ---
Author Organization [facility] Address [address] [place] [address] Phone Care Team Providers Care Title Department Manager Name Role Phone LongAsa guillory DO Unavailable Andre Dias MD Unavailable [phone] [place], Asa Hernández DO Primary Care Provider [phone] Asa Johnson DO Unavailable Alex, Asa A DO Primary Care Provider [phone] Encounter Details Date Type Department Care Team (Late st Contact Info) Description 05/24/2021 Procedure Pass [facility], Ct Scan - [address] [address] Social History Tobacco Use Types Packs/Day Years Used Date Smoking Tobacco: Never Smokeless Tobacco: Never Alcohol Use Standard Drinks/Week Comments Yes 0 (1 standard drink = 0.6 oz pur e alcohol) rare Comments No Sex and Gender Information Value Date Recorded Sex Assigned at Female 04/07/2019 12:13 PM EST Legal Sex Female 9:27 PM EDT Gender Identity Female 04/07/2019 12:13 PM EST Sexual Orientation Straight 04/07/2019 12 :13 PM EST documented as of this encounter Functional Status * Calculated C-SSRS Risk Score (Lifetime/Recent) Answer Date of Assessment Author No Risk Indicated 05/24/2021 2:55 PM EDT Fred Dunlap, MARICEL * Gray Suicide Severity Rating Scale (Screener/Recent Self-Report) Question Answer Date of Assessment Author 1. Wish to be (Past 1 Month) No 05/24/2021 2:55 PM EDT Fred Vazquez, MARICEL 2. Non-Specific Active Suicidal Thoughts (Past 1 Month) No 05/24/2021 2:55 PM EDT Fred Vazquez, MARICEL 6. Suicidal Behavior (Lifetime) No 05/24/2021 2:55 PM EDT Fred Vazquez, MARICEL documented as of this encounter Plan of Treatment Upcoming Encounters Date Type Department Care Team (Late st Contact Info) Description 11/14/2024 8:15 AM EDT Hospital Encounter [facility] [address] [place] [address] Asa Johnson DO 179 [place] [address] 08/01/2025 9:00 AM EDT Office Visit [facility] [address] [place] [address] 3rd Floor, [address] [place] [address] Demar Perdomo MD, MS 22 [facility], [address] [address] [email or web address] documented as of this encounter Visit Diagnoses Not on filedocumented in this encounter Care Teams Title Department Manager Relationship Specialty Start Date End Date Asa Johnson DO PCP - General 03/09/17 03/28/24 Asa Johnson DO 179 [place] [address] PCP - General Internal Medicine 03/29/24 Asa Johnson DO [email or web address] Historical LMR Provider 12/19/16 Andre Dias MD [address] [place] [address] Historical LMR Provider 12/19/16 Asa Johnson DO [address] [place] [address] [place] [address] [email or web address] Insurance Assigned Provider 04/07/18 07/23/22 documented as of this encounter Additional Source Comments The information contained in this document represents components of the legal health record. It is not the complete legal health record.[facility]
--- OUTSIDE RECORDS SUMMARY | 2024-11-12 15:39 | XMS_ITS | Encounter Summary ---
Author Organization [facility] Address [address] [place] [address] Phone Care Team Providers Care Retail Training Manager Name Role Phone Asa Johnson DO Unavailable Lexie Tomlinson BOXING PROMOTER Unavailable [phone] Miladis Mckeon BOXING PROMOTER Unavailable [phone] Andre Dias MD Unavailable [phone] Alejandro Goldberg MD Unavailable [phone] Alex, Asa Edgar DO Primary Care Provider [phone] Bigda, Asa Hernández DO Unavailable Bigda, Asa Edgar DO Primary Care Provider [phone] Encounter Details Date Type Department Care Team (Latest Contact Info) Description 02/06/2019 Transcribe Orders [facility] [address] [place] [address] Juan R Presley MD 51 [facility], [address] [place], [place] [id number] [email or web address] Nephrogenous proteinuria (Primary Dx) Social History Tobacco Use Types [...] EDT Hospital Encounter [facility] [address] [place] [address] Asa Johnson, 179 [facility] [place] [address] [place] [address] 08/01/2025 9:00 AM EDT Office Visit [facility] [address] [facility] 3rd Floor, [address] [place] [address] Demar Perdomo MD, MS 22 [facility], [address] [place] [address] [email or web address] documented as of this encounter Results * TOTAL PROTEIN CREATININE RATIO, RANDOM URINE (08/29/2019 7:39 AM EDT) URINE TOTAL PROTEIN 5.3 mg/dL [facility] URINE CREATININE 60 mg/dL [facility] URINE TP CRE RATIO 0.09 0 - 0.19 [facility] Urine (Urine) 08/29/2019 7:3 9 AM EDT 08/29/2019 7:44 AM EDT us Juan R Presley MD URINE ORDERABLES Final Result [facility] [address] [place] [address] * (ABNORMAL) CBC and differential (08/29/2019 7:39 AM EDT) WBC 9.86 4.00 - 11.00 K/uL [facility] Comment:Note Reference Range updates to all CBC and Differential results. RBC 4.32 3.72 - 5.30 M/uL [facility] HGB 12.9 10.6 - 15.5 g/dL [facility] Comment:Note updated Referen ce Ranges for all CBC and Differential results. HCT 39.4 32.0 - 45.0 % [facility] PLT 219 140 - 430 K/uL [facility] MCV 91.2 78.0 - 97.0 fL [facility] MCH 29.9 25.0 - 33.0 pg [facility] MCHC 32.7 32.0 - 36.0 g/dL [facility] RDW 12.9 11.0 - 16.0 % [facility] MPV 11.9 8.4 - 12.8 fl [facility] NRBC 0.00 0 /100 WBCs [facility] ABSOLUTE NRBC 0.00 0 K/uL [facility] DIFF METHOD Auto [facility] NEUTS 65.8 43.0 - 75.0 % [facility] LYMPHS 22.2 18.2 - 47.4 % [facility] MONOS 8.0 4.00 - 11.00 % [facility] EOS 2.5 0.0 - 8.0 % [facility] BASOS 0.5 0.0 - 2.0 % [facility] Granulocytes, immature (%) 1.0(H) 0.0 - 0.9 % [facility] ABSOLUTE NEUTS 6.48 1.80 - 7.70 K/uL [facility] ABSOLUTE LYMPHS 2.19 1.00 - 3.10 K/uL [facility] ABSOLUTE MONOS 0.79 0.20 - 0.80 K/uL [facility] ABSOLUTE EOS 0.25 0.00 - 0.80 K/uL [facility] ABSOLUTE BASOS 0.05 0.00 - 0.09 K/uL [facility] Granulocytes, immature 0.10(H) 0.00 - 0.05 K/uL [facility] Blood 08/29/2019 7:39 AM EDT 08/29/2019 7:44 AM EDT us Juan R Presley MD LAB BLOOD ORDERABLES Final Re sult [facility] [address] [address] * (ABNORMAL) Albumin (08/29/2019 7:39 AM EDT) ALBUMIN 3.7(L) 3.9 - 4.8 g/dL [facility] Blood 08/29/2019 7:39 AM EDT 08/29/2019 7:44 AM EDT us Juan R Presley MD LAB BLOOD ORDERABLES Final Re sult Performing Organization Address [facility]/ZIP Co de Phone Number [address] [address] * Magnesium (08/29/2019 7:39 AM EDT) Pathologist [facility] MAGNESIUM 2.4 1.6 - 2.6 mg/dL [facility] Blood 08/29/2019 7:39 AM EDT 08/29/2019 7:44 AM EDT us Juan R Presley MD LAB BLOOD ORDERABLES Final Re sult Performing Organization Address [facility]/ZIP Co de Phone Number [address] [address] * Phosphorus (08/29/2019 7:39 AM EDT) PHOSPHORUS 3.9 2.7 - 4.5 mg/dL [facility] Blood 08/29/2019 7:39 AM EDT 08/29/2019 7:44 AM EDT us Juan R Presley MD LAB BLOOD ORDERABLES Final Re sult Performing Organization Address [facility]/ZIP Co de Phone Number [address] [address] * (ABNORMAL) Basic metabolic panel (08/29/2019 7:39 AM EDT) SODIUM 141 133 - 146 mmol/L [facility] CHLORIDE 109(H) 96 - 108 mmol/L [facility] POTASSIUM 4.7 3.3 - 5.1 mmol/L [facility] CO2 17(L) 21 - 35 mmol/L [facility] BUN 83(H) 6 - 19 mg/dL [facility] CREATININE 2.80(H) 0.5 - 1.5 mg/dL [facility] GLUCOSE 88 70 - 99 mg/dL [facility] CALCIUM 9.2 8.4 - 10.3 mg/dL [facility] EGFR 20(L) >59 mL/min/1.7 3m2 [facility] Comment:Estimated glomerular filtration rate calculated using the CKD-EPI equation. ANION GAP 20 10 - 20 mmol/L [facility] Blood 08/29/2019 7:39 AM EDT 08/29/2019 7:44 AM EDT Juan R Presley MD LAB BLOOD ORDERABLES Final Re sult Performing Organization Address [facility]/ZIP Co de Phone Number [address] [address] * (ABNORMAL) Parathyroid hormone (PTH) (08/29/2019 7:39 AM EDT) PARATHYROID HORMONE 86(H) 15 - 65 pg/mL [facility] Blood 08/29/2019 7:39 AM EDT 08/29/2019 7:44 AM EDT Juan R Presley MD LAB BLOOD ORDERABLES Final Re sult [address] [address] * (ABNORMAL) 25-OH vitamin D (08/29/2019 7:39 AM EDT) 25 OH VIT D (TOTAL) 29(L) 30 - 60 ng/mL [facility] Blood 08/29/2019 7:39 AM EDT 08/29/2019 7:44 AM EDT Juan R Presley MD LAB BLOOD ORDERABLES Final Re sult Performing Organization Address [facility]/ZIP Co de Phone Number [address] [address] * (ABNORMAL) TOTAL PROTEIN CREATININE RATIO, RANDOM URINE (02/06/2019 7:37 AM EST) URINE TOTAL PROTEIN 44.4 mg/dL [facility] URINE CREATININE 120 mg/dL [facility] URINE TP CRE RATIO 0.37(H) 0 - 0.19 [facility] Urine (Urine) 02/06/2019 7:3 7 AM EST 02/06/2019 9:57 AM EST us Juan R Presley MD URINE ORDERABLES Final Result Performing Organization Address [facility]/ZIP Co de Phone Number [address] [address] * (ABNORMAL) CBC and differential (02/06/2019 7:37 AM EST) WBC 10.25 3.40 - 11.20 K/uL [facility] RBC 4.54 3.80 - 4.80 M/uL [facility] HGB 13.8 12.0 - 15.0 g/dL [facility] HCT 40.7 36.0 - 46.0 % [facility] PLT 235 130 - 400 K/uL [facility] MCV 89.6 79.0 - 98.0 fL [facility] MCH 30.4 27.0 - 34.8 pg [facility] MCHC 33.9 31.5 - 36.0 g/dL [facility] RDW 12.5 10.8 - 14.6 % [facility] MPV 10.4 9.4 - 12.4 fl [facility] NRBC 0.00 0.00 /100 WBCs [facility] ABSOLUTE NRBC 0.00 0.00 K/uL [facility] DIFF METHOD Auto [facility] NEUTS 71.3 45.30 - 77.70 % [facility] LYMPHS 18.8 12.30 - 39.70 % [facility] MONOS 6.3 4.10 - 12.80 % [facility] EOS 2.5 0 - 7.2 % [facility] BASOS 0.6 0 - 2.80 % [facility] Granulocytes, immature (%) 0.5 0.0 - 0.9 % [facility] ABSOLUTE NEUTS 7.30 1.40 - 7.70 K/uL [facility] ABSOLUTE LYMPHS 1.93 0.60 - 3.20 K/uL [facility] ABSOLUTE MONOS 0.65(H) 0.11 - 0.59 K/uL [facility] ABSOLUTE EOS 0.26 0.01 - 0.50 K/uL [facility] ABSOLUTE BASOS 0.06 0.00 - 0.08 K/uL [facility] Granulocytes, immature 0.05 0.00 - 0.05 K/uL [facility] Blood 02/06/2019 7:37 AM EST 02/06/2019 9:57 AM EST Juan R Presley MD LAB BLOOD ORDERABLES Final Re sult [address] [address] * (ABNORMAL) Albumin (02/06/2019 7:37 AM EST) ALBUMIN 3.7(L) 3.9 - 4.8 g/dL [facility] Blood 02/06/2019 7:37 AM EST 02/06/2019 9:57 AM EST Juan R Presley MD LAB BLOOD ORDERABLES Final Re sult Performing Organization Address [facility]/ZIP Co de Phone Number [address] [address] * Magnesium (02/06/2019 7:37 AM EST) MAGNESIUM 2.0 1.6 - 2.6 mg/dL [facility] Blood 02/06/2019 7:37 AM EST 02/06/2019 9:57 AM EST Juan R Presley MD LAB BLOOD ORDERABLES Final Re sult [address] [address] * Phosphorus (02/06/2019 7:37 AM EST) PHOSPHORUS 3.9 2.7 - 4.5 mg/dL [facility] Blood 02/06/2019 7:37 AM EST 02/06/2019 9:57 AM EST Juan R Presley MD LAB BLOOD ORDERABLES Final Re sult Performing Organization Address [facility] Co de Phone Number [address] [address] * (ABNORMAL) Basic metabolic panel (02/06/2019 7:37 AM EST) SODIUM 140 133 - 146 mmol/L [facility] CHLORIDE 104 96 - 108 mmol/L [facility] POTASSIUM 3.9 3.3 - 5.1 mmol/L [facility] CO2 22 21 - 35 mmol/L [facility] BUN 33(H) 6 - 19 mg/dL [facility] CREATININE 2.50(H) 0.5 - 1.5 mg/dL [facility] GLUCOSE 107(H) 70 - 99 mg/dL [facility] CALCIUM 9.3 8.4 - 10.3 mg/dL [facility] EGFR 23(L) >59 mL/min/1.7 3m2 [facility] Comment:If patient is black, multiply result by 1.159. Estimated glomerular filtration rate calculated using the CKD-EPI equation. ANION GAP 18 10 - 20 mmol/L [facility] Blood 02/06/2019 7:37 AM EST 02/06/2019 9:57 AM EST Juan R Presley MD LAB BLOOD ORDERABLES Final Re sult Performing Organization Address [facility]/ZIP Co de Phone Number [address] [address] * (ABNORMAL) Parathyroid hormone (PTH) (02/06/2019 7:37 AM EST) PARATHYROID HORMONE 76(H) 15 - 65 pg/mL [facility] Blood 02/06/2019 7:37 AM EST 02/06/2019 9:57 AM EST us Juan R Presley MD LAB BLOOD ORDERABLES Final Re sult Performing Organization Address [facility]/ZIP Co de Phone Number [address] [address] * 25-OH vitamin D (02/06/2019 7:37 AM EST) 25 OH VIT D (TOTAL) 44 30 - 60 ng/mL [facility] Blood 02/06/2019 7:37 AM EST 02/06/2019 9:57 AM EST Juan R Presley MD LAB BLOOD ORDERABLES Final Re sult [address] [address] documented in this encounter Visit Diagnoses Diagnosis Nephrogenous proteinuria- Primary documented in this encounter Care Teams Retail Training Manager Relationship Specialty Start Date End Date Asa Johnson DO PCP - General 03/09/17 03/28/24 Asa Johnson DO [address] [place] [address] PCP - General Internal Medicine 03/29/24 Asa Johnson DO Historical LMR Provider 12/19/16 Lexie Tomlinson BOXING PROMOTER [address] [place] [address], [place] [address] Historical LMR Provider 12/19/16 2 Miladis Mckeon NP [address] [place] [address] [email or web address] Historical LMR Provider 12/19/16 2 Andre Dias MD [address] [address] Historical LMR Provider 12/19/16 Alejandro Goldberg MD [address] [place] [address] Historical LMR Provider 12/19/16 2 Asa Johnson DO 179 [facility] [place] [address] [email or web address] Insurance Assigned Provider 04/07/18 07/23/22 documented as of this encounter Additional Source Comments The information contained in this document represents components of the legal health record. It is not the complete legal health record.[facility]
--- OUTSIDE RECORDS SUMMARY | 2024-11-12 15:39 | XMS_ITS | Encounter Summary ---
Author Organization [facility] Address [address] [address] Phone Care Team Providers Care Centrifugal Separator Name Role Phone Asa Johnson DO Unavailable Lexie Tomlinson CHEMISTRY TECHNOLOGIST Unavailable [phone] Miladis Mckeon CHEMISTRY TECHNOLOGIST Unavailable [phone] Andre Dias MD Unavailable [phone] Alejandro Goldberg MD Unavailable [phone] Asa Johnson DO Primary Care Provider [phone] Asa Johnson DO Unavailable Asa Johnson DO Primary Care Provider [phone] Encounter Details Date Type Department Care Team (Late st Contact Info) Description 05/15/2019 Transcribe Orders Virtual Department [address] [place] [address] Asa Johnson DO 179 [facility] [address] [place] [address] Chronic low back pain, unspecified back pain laterality, unspecified whether sciatica present (Primary Dx) Social History Tobacco Use Types [...] EDT Hospital Encounter [facility] [address] [place] [address] Asa Johnson DO 179 [facility] [address] [place] [address] 08/01/2025 9:00 AM EDT Office Visit [facility] [address] [facility] 3rd Floor, [address] [place] [address] Demar Perdomo MD, MS 22 [facility], [address] [place] [address] documented as of this encounter Results * XR LUMBOSACRAL SPINE 4 OR MORE VIEWS (05/16/2019 8:30 AM EDT) Anatomical Region Laterality Modality L-spine Radiographic Marycarmen ging 05/16/2019 9:26 AM EDT Impressions 05/16/2019 9:45 AM EDT No acute lumbar spine findings. Normal alignment. L4 limbus vertebrae, usually an incidental finding without symptoms unless it is acute, but the well corticated fragment suggests this is definitely old. POS - [id number] Narrative 05/16/2019 9:45 AM EDT EXAM: XR LUMBOSACRAL SPINE 4 OR MORE VIEWS HISTORY: Chronic low back pain. TECHNIQUE: 5 views lumbar spine. COMPARISON: none FINDINGS: Lumbar vertebrae are normal in height and alignment. No compression fracture deformities. Small smoothly corticated triangular bone fragment along the anterior superior corner of the L4 vertebral body characteristic of a limbus vertebrae, usually an incidental finding. Intervertebral disc spaces are normal in height. No pars defects. Normal sacroiliac joints. No soft tissue abnormality. Procedure Note Renetta Peck MD - 05/16/2019 EXAM: XR LUMBOSACRAL SPINE 4 OR MORE VIEWS HISTORY: Chronic low back pain. TECHNIQUE: 5 views lumbar spine. COMPARISON: none FINDINGS: Lumbar vertebrae are normal in height and alignment. No compression fracture deformities. Small smoothly corticated triangularbone fragment along the anterior superior corner of the L4 vertebral bodycharacteristic of a limbus vertebrae, usually an incidental finding. Intervertebral disc spaces are normal in height. No pars defects. Normal sacroiliac joints. No soft tissue abnormality. IMPRESSION: No acute lumbar spine findings. Normal alignment. L4 limbus vertebrae, usually an incidental finding without symptoms unlessit is acute, but the well corticated fragment suggests this is definitelyold. POS - [id number] Asa Johnson DO IMG XR SPINE Final Result documented in this encounter Visit Diagnoses Diagnosis Chronic low back pain, unspecified back pain laterality, unspecified whether sciatica present- Primary Chronic low back pain, unspecified back pain laterality, unspecified whether sciatica present documented in this encounter Care Teams Centrifugal Separator Relationship Specialty Start Date End Date Asa Johnson DO PCP - General 03/09/17 03/28/24 Asa Johnson DO 179 [place] [address] PCP - General Internal Medicine 03/29/24 Asa Johnson DO Historical LMR Provider 12/19/16 Lexie Tomlinson NP [address] [place] [phone] Historical LMR Provider 12/19/16 2 Miladis Mckeon NP 21 [place] [address] [email or web address] Historical LMR Provider 12/19/16 2 Andre Dias MD [address] [address] Historical LMR Provider 12/19/16 Alejandro Goldberg MD [address] [place] [address] Historical LMR Provider 12/19/16 2 Asa Johnson DO 179 [facility] [place] [address] Insurance Assigned Provider 04/07/18 07/23/22 documented as of this encounter Additional Source Comments The information contained in this document represents components of the legal health record. It is not the complete legal health record.[facility]
--- OUTSIDE RECORDS SUMMARY | 2024-11-12 15:39 | XMS_ITS | Encounter Summary ---
Author Organization [facility], Address [address] [place] [address] Phone Care Team Providers Care Service Supervisor Name Role Phone Asa Johnson DO Primary Care Provider [phone] Encounter Details Date Type Department Care Team (Late st Contact Info) Description 08/08/2022 Documentation Only [facility], - Lenny Zapata [address] [facility] [address] [place] [phone] Asa Jhonson DO [address] [place] [address] Social History Tobacco Use Types [...] filedocumented in this encounter Care Teams Service Supervisor Relationship Specialty Start Date End Date Asa Johnson DO [address] [place] [address] PCP - General 01/08/19 documented as of this encounter
--- OUTSIDE RECORDS SUMMARY | 2024-11-12 15:39 | XMS_ITS | Encounter Summary ---
Author Organization [facility], Address [address] [place] [address] Phone Care Team Providers Care Hand Tacker Name Role Phone Asa Johnson DO Primary Care Provider [phone] Reason for Visit * Reason Comments Med Refill Encounter Details Date Type Department Care Team (Late st Contact Info) Description 02/04/2021 Refill [facility] - [facility] [address] [facility] 3 [place] [phone] Juan R Prelsey MD Social History Tobacco Use Types Packs/Day [...] on filedocumented in this encounter Care Teams Hand Tacker Relationship Specialty Start Date End Date Asa Johnson DO [address] [place] [phone] PCP - General 01/08/19 documented as of this encounter
--- OUTSIDE RECORDS SUMMARY | 2024-11-12 15:39 | XMS_ITS | Clinical Summary ---
Author Organization [facility] Address [address] [address] Phone Care Team Providers Care Photographic Engineer Name Role Phone Asa Johnson DO Unavailable Andre Dias MD Unavailable [phone] Asa Johnson DO Primary Care Provider [phone] Allergies Active Allergy Reactions Criticality Noted Date Comments Hydrocodone-Acetaminophen Nausea and/or Vomiting,Nausea And Vomiting 10/31/2018 Latex Swelling 10/31/2018 Medications allopurinol (ZYLOPRIM) 100 MG tablet Take 100 mg by mouth daily. Active simvastatin (ZOCOR) 10 MG tablet Take 10 mg by mouth nightly at bedtime. Active furosemide (LASIX) 20 MG tablet Take 20 mg by mouth 2 (two) times a week. Active cetirizine (ZYRTEC) 10 MG tablet Take 10 mg by mouth daily. Active topiramate (TOPAMAX) 100 MG tablet Take 100 mg by mouth 2 (two) times a day. Active SUMAtriptan (IMITREX) 25 MG tablet Take 25 mg by mouth every 2 (two) hours as needed for migraine. Not to exceed 200 mg/day Active cholecalciferol (VITAMIN D3) 25 MCG (1,000 unit) tablet Take 1,000 Units by mouth daily. Active FLUoxetine (PROZAC) 10 MG capsule Take 30 mg by mouth daily. Active indomethacin (INDOCIN) 50 MG capsule as needed. Active ipratropium (ATROVENT) 42 mcg (0.06 %) nasal spray 2 sprays by Nasal route 3 (three) times a day. 45 mL 3 2 Active Additional Information Patient not taking.Reported on 07/19/2024 fluticasone-umec lidin-vilanter (TRELEGY ELLIPTA) 200-62.5-25 mcg inhalerIndicatio ns:Moderate persistent asthma without complication Inhale 1 puff into the lungs daily. 3 each 3 3 Active albuterol 90 mcg/actuation inhalerIndicatio ns:Asthma Inhale 2 puffs into the lungs every 6 (six) hours as needed for wheezing or shortness of breath/dyspnea. 54 g 3 4 Active ARIPiprazole (ABILIFY) 5 MG tablet Take 5 mg by mouth daily. Active atogepant (QULIPTA) 30 mg tablet Take 30 mg by mouth. 3 Active LORazepam (ATIVAN) 0.5 MG tablet Take 1 tablet by mouth 2 (two) times a day. 5 Active propranoloL (INDERAL) 20 MG immediate release tablet Take 1 tablet by mouth 2 (two) times a day. 5 Active Active Problems Problem Noted Date Diagnosed Date High cholesterol 09/23/2022 09/23/2022 Essential hypertension 07/14/2020 3 Anemia in chronic kidney disease 03/19/2019 09/23/2022 Adrenal hyperplasia 12/13/2017 09/23/2022 Endometriosis 12/13/2017 09/23/2022 Stage 4 chronic kidney disease 12/13/2017 0 09/23/2022 Gout 12/13/2017 09/23/2022 Asthma 11/12/1979 09/23/2022 Encounters Date Type Department Care Team Description 11/05/2024 Transcribe Orders [facility] [address] [place] [address] Asa Johnson DO 09/23/2024 [employer] [facility] [address], [address] [place] [address] Isabelle Guaman MA 09/11/2024 Telephone [facility] [address], [address] [place] [address] Isabelle Guaman MA 08/28/2024 Transcribe Orders Virtual Department [address] [place] [address] [employer] Asa Hernández, DO Moderate persistent asthma, unspecified whether complicated (Primary Dx) 08/27/2024 Telephone [facility] [address] [place] [address] Aguila Colon MD 08/26/2024 Telephone [facility] [address] [place] [address] Aguila Colon MD from Last 3 Months Immunizations Immunization Administration Dates Next Due Influenza Quadrivalent Preservative Free IM 12/05 Pneumococcal polysaccharide PPSV23 01/09/2009 Family History Medical History Relation Comments COPD Father Emphysema Father Hyperthyroidism Father Hypertension Mother Stroke Paternal Grandmother Thyroid cancer Paternal Grandmother Relation Status Comments Father Mother Paternal Grandmother Social History Tobacco Use Types Packs/Day Years Used Date Smoking Tobacco: Never Smokeless Tobacco: Never Tobacco Cessation:Counseling Given: Not Answered Alcohol Use Standard Drinks/Week Comments Yes 0 [...] Orientation Straight 04/07/2019 12 :13 PM EST Last Filed Vital Signs Vital Sign Reading Time Taken Comments Blood Pressure 112/70 07/19/2024 9:06 AM EDT Pulse 57 07/19/2024 9:06 AM EDT Temperature 37 C (98.6 F) 09/23/2022 4:30 PM EDT Respiratory Rate 18 09/23/2022 4:30 PM EDT Oxygen Saturation 97% 07/19/2024 9:06 AM EDT Inhaled Oxygen Concentration - - Weight 91.6 kg (202 lb) 07/19/2024 9:06 AM EDT Height 160 cm (5' 2.99 ) 07/19/2024 9:06 AM EDT Body Mass Index 35.79 07/19/2024 9:06 AM EDT Plan of Treatment Upcoming Encounters Date Type Department Care Team (Late st Contact Info) Description 11/14/2024 8:15 AM EDT Hospital Encounter [facility] [address] [place] [address] Asa Johnson DO [address] [facility] [place] [address] [place] [address] [email or web address] 08/01/2025 9:00 AM EDT Office Visit [facility] [address] [facility] 3rd Floor, [address] [place] [address] Demar Perdomo MD, MS 22 [facility], [address] [place] [address] [email or web address] Health Maintenance Due Date Last Done Comments DEPRESSION SCREENING 1987 HEPATITIS C SCREENING 11/30/1993 HIV ONE-TIME SCREENING (18-65 YEARS) 11/30/1993 PNEUMOCOCCAL VACCINES (0-49 years) (2 of 2 - PCV) 10/27/2019 10/26/2018, 01/09/2009 COLOGUARD 11/30/2020 COLONOSCOPY 11/30/2020 COLORECTAL CANCER SCREENING 11/30/2020 FIT TEST 11/30/2020 FOBT 11/30/2020 SIGMOIDOSCOPY 11/30/2020 VIRTUAL COLONOSCOPY 11/30/2020 MAMMOGRAM 03/28/2021 03/28/2019, 03/07, 01/10/2017, Additional history exists PAP SMEAR 10/31/2021 10/31/2018, 10/31/2018 CREATININE LEVEL 08/10/2024 08/11/2023, , 07/15/2022, Additional history exists INFLUENZA VACCINE (#1) 2024 2, 12/30/2020, 11/07/2019, Additional history exists COVID-19 VACCINE (2024- season) 2024 12/13/2021, 01/26/2021, 04/29/2020, Additional history exists BLOOD PRESSURE 01/19/2025 07/19/2024 SCREENING FOR DIABETES 08/10/2026 08/11/2023, 2018 LIPID PANEL 05/28/2027 05/27/2022, 05/27/2022 Adult Td,Tdap Booster 04/12/2029 04/12/2019 SMOKING STATUS SCREENING (Once After 26 Yrs) Completed 07/19/2024 HEPATITIS A VACCINES Aged Out No long er eligible based on patient's age to complete this topic HIB VACCINES Aged Out No longer eligi ble based on patient's age to complete this topic MENINGOCOCCAL VACCINES (ACWY) Aged Out No longer eligible based on patient's age to complete this topic MENINGOCOCCAL VACCINES (B) Aged Out N o longer eligible based on patient's age to complete this topic Medical Devices Not on file Procedures Procedure Name Priority Date/Time Associated Diagnosis Comments BASIC METABOLIC PANEL Routine 08/11/2023 8:57 AM EDT Radiological examination, not elsewhere classified LIPID PANEL Routine 05/27/2022 10:12 AM EDT Essential hypertension, malignant CKD (chronic kidney disease) stage 4, GFR 15-29 ml/min Anemia of chronic renal failure, unspecified CKD stage BI MAMMOGRAM SCREENING WITH TOMOSYNTHESIS WITH CAD (BILATERAL) Routine 03/28/2019 8:22 AM EST Encounter for gynecological examination without abnormal finding GLUCOSE TOLERANCE TEST, 2 HR Routine 02/06/2019 7:37 AM EST History of gestational diabetes PAP TEST Routine 10/31/2018 12:00 AM EDT from Last 3 Months or Most Recently Relevant to Health Maintenance Results * (ABNORMAL) Basic metabolic panel (08/11/2023 8:57 AM EDT) SODIUM 139 133 - 146 mmol/L [facility] CHLORIDE 109(H) 96 - 108 mmol/L [facility] POTASSIUM 4.2 3.3 - 5.1 mmol/L [facility] CO2 16(L) 21 - 35 mmol/L [facility] BUN 30(H) 6 - 19 mg/dL [facility] CREATININE 2.70(H) 0.5 - 1.5 mg/dL [facility] GLUCOSE 108(H) 70 - 99 mg/dL [facility] CALCIUM 9.1 8.4 - 10.3 mg/dL [facility] EGFR 21(L) >59 mL/min/1.7 3m2 [facility] Comment:Estimated glomerular filtration rate calculated using the CKD-EPI refit equation. ANION GAP 18 10 - 20 mmol/L [facility] Blood 08/11/2023 8:57 AM EDT 08/11/2023 8:58 AM EDT us Ferny Steele MD LAB BLOOD ORDERABLES Fiorella brown Result [facility] [address] [place], [place] [id number] * (ABNORMAL) Lipid panel (05/27/2022 10:12 AM EDT) HDL 61 mg/dL [facility] Comment: Interpretation <40 mg/dL: Low HDL cholesterol (major risk factor for CHD) Greater than or equal to 60 mg/dL: High HDL cholesterol ( negative risk factor for CHD) HDL - cholesterol is affected by a number of factors, e.g. smoking, excerise, hormones, sex and age. CHOLESTEROL 196 0 - 240 mg/dL [facility] TRIGLYCERIDES 118 30 - 160 mg/dL [facility] LDL 111 50 - 129 mg/dL [facility] Comment: LDL levels in terms of risk for coronary heart disease: <100 mg/dL: Optimal 100-129 mg/dL: Near or above optimal 130-159 mg/dL: Borderline high 160-189 mg/dL: High >190 mg/dL: Very High CARDIAC RISK RATIO 3.2(L) 3.3 - 4.4 [facility] Blood 05/27/2022 10:1 2 AM EDT 05/27/2022 10:18 AM EDT us Asa Johnson DO LAB BLOOD ORDERABLES Final Resul t [facility] [address] [place] [address] * BI MAMMOGRAM SCREENING WITH TOMOSYNTHESIS WITH CAD (BILATERAL) (03/28/2019 8:22 AM EST) Anatomical Region Laterality Modality Breast Left, Breast Right, Breast Bilateral Bila teral Mammography 03/28/2019 8:40 AM EST Impressions 03/28/2019 8:42 AM EST No mammographic evidence of malignancy. Recommend routine annual surveillance. BI-RADS CATEGORY: 2 - Benign finding. DENSITY: There are scattered fibroglandular densities. POS - [id number] Narrative 03/28/2019 8:42 AM EST 43-year-old female with no current breast symptoms. Comparison made to previous on 03/26/2018 and as far back as 12/29/2015. Interpretation made in conjunction with computer-aided detection and tomosynthesis. There are scattered areas of fibroglandular density. Stable small nodular asymmetry in the posterior medial left breast on the cc view. There are no suspicious masses, areas of architectural distortion, or suspicious clusters of microcalcifications. Procedure Note Leon Gandhi MD - 03/28/2019 43-year-old female with no current breast symptoms. Comparison made toprevious on 03/26/2018 and as far back as 12/29/2015. Interpretation madein conjunction with computer-aided detection and tomosynthesis. There are scattered areas of fibroglandular density. Stable small nodularasymmetry in the posterior medial left breast on the cc view. There are no suspicious masses, areas of architectural distortion, orsuspicious clusters of microcalcifications. IMPRESSION: No mammographic evidence of malignancy. Recommend routine annualsurveillance. BI-RADS CATEGORY: 2 - Benign finding. DENSITY: There are scattered fibroglandular densities. POS - [id number] Tracie Myers MD IMG MG EXAMS Final Result * (ABNORMAL) Glucose tolerance test, 2 hr (02/06/2019 7:37 AM EST) FASTING GLUCOSE 100 70 - 110 mg/dL [facility] ONE HR GLUCOSE 184(H) 70 - 99 mg/dL [facility] TWO HR GLUCOSE 122(H) 70 - 99 mg/dL [facility] Blood 02/06/2019 7:37 AM EST 02/06/2019 9:57 AM EST Tracie Myers MD LAB BLOOD ORDERABLES Final Resul t Performing Organization Address City/State/[facility] Co de Phone Number [address] [address] * Pap Smear (10/31/2018 12:00 AM EDT) 10/31/2018 11/01/2018 10: 13 AM EDT Narrative SEE NARRATIVE - 11/08/2018 12:12 PM EDT [address] [address] Filer Repairer: Kemi Guajardo MD FILM REPRODUCER Cytology Report FINAL DIAGNOSIS A. PAP SMEAR (SUREPATH) CE: SPECIMEN ADEQUACY: Satisfactory for evaluation; transformation zone present. INTERPRETATION: NEGATIVE FOR INTRAEPITHELIAL LESION OR MALIGNANCY. Electronically Signed Out By: DANY Cramer(ASCP) The Pap test is a screening test primarily for squamous cancers and precursors and has associated false-negative and false-positive results. New technologies such as liquid-based preparations may decrease but will not eliminate all false-negative results. Regular sampling and follow-up of unexplained clinical signs and symptoms are recommended to minimize false negative results. PROCEDURES/ADDENDA HPV Testing (Requested) Ordered Date: 11/01/2018 A. PAP SMEAR (SUREPATH) CE: Human Papilloma Virus Test Negative for high-risk human papillomavirus types 16, 18, 45 and the Other high risk probe set (Includes 31, 33, 35, 39, 51, 52, 56, 58, 59, 66, 68) by tydylarity HR-HPV analysis. Clinical correlation is advised. This HPV test was performed at [facility], [address] [place] [address]. This test has been FDA approved for SurePath cervical cytology specimens. The accuracy and precision of this test for all other specimen sources has been verified in the Cytopathology Laboratory of the [facility] and has not been cleared or approved by the U.S. Food and Drug Administration. Clinical correlation is advised. CLINICAL HISTORY Date of Last Menstrual Period: Not Provided Menstrual History: Unknown Other Clinical Conditions: Screening Pap SPECIMEN SOURCE A: PAP SMEAR (SUREPATH) CE Patient Name: DELONTE GREYELLE : 1975 (Age: 42) Sex: F Institution: [facility] Location: [facility] Date of Collection: 10/31/2018 Date of Reported: 11/08/2018 12:12 Results to: Tracie Myers MD Tracie Myers MD CYTOLOGY ORDERABLES Final Result SEE NARRATIVE from Last 3 Months or Most Recently Relevant to Health Maintenance Insurance OUT STATE PPO CROSS OUT OF STATE PPO BLUE CROSS OUT OF [facility] PPO BLUE CROSS OUT OF STATE PPO PPO PPO Care Teams Photographic Engineer Relationship Specialty Start Date End Date Asa Johnson DO [address] [place] [address] [place] [address] PCP - General Internal Medicine 03/29/24 Asa Johnson DO Historical LMR Provider 12/19/16 Andre Dias MD [address] [place] [address] Historical LMR Provider 12/19/16 Additional Source Comments The information contained in this document represents components of the legal health record. It is not the complete legal health record.[facility]
--- OUTSIDE RECORDS SUMMARY | 2024-11-12 15:39 | XMS_ITS | Encounter Summary ---
Author Organization [facility], Address [address] [place] [address] Phone Care Team Providers Care Salvage Inspector Name Role Phone Asa Johnson DO Primary Care Provider [phone] Encounter Details Date Type Department Care Team (Late st Contact Info) Description 02/06/2023 Documentation Only [facility], - [address] [facility] [address] [place] [phone] Juan R Presley MD Social History Tobacco [...] on filedocumented in this encounter Care Teams Salvage Inspector Relationship Specialty Start Date End Date Asa Johnson DO [address] [facility] [place] [phone] PCP - General 01/08/19 documented as of this encounter
--- OUTSIDE RECORDS SUMMARY | 2024-11-12 15:39 | XMS_ITS | Patient Health Record ---
[facility] Address [address] [facility] [place] [address] Care Team Providers Care Continuous Still Operator Name Role Phone Asa Johnson MD Primary Care Provider Unavailabl e Black, Edna Unavailable [phone] Allergies Allergen (clinical drug ingredient) Drug/Non Drug [...] Risk Notes Problem Closed fracture of calcaneus (07003203) Stress Fx Calcaneus (825.0) Active confirmed Problem Plantar fasciitis (310233500) Plantar Fasciitis (728.71) Active confirmed Problem Gout (92673577) Gout (274.9) Active confirmed Problem Myositis (94923982) Myositis (729.1) Active confirmed Problem Pain in limb (40890433) Pain in Limb (729.5) Active confirmed Plan Of Treatment Pending Test Test Name Order Date Bone scan 12/30/2010 *Uric Acid, Serum 05/02/2011 *Sedimentation Rate-Westergren 2 X ray : Foot, left 3V 11/22/2010 X ray : Foot, left 3V 12/29/2010 [id number] TENDON SHEATH/LIGAMENT 0 03/25/2011 Insurance Providers Payer Name Payer Address Payer Phone Subscriber Number Group Number Insured Name Patient Relationship to Insured Coverage Start Date Coverage End Date Blue Benefits [address] [address] [place] [address] [id number] Shannon Zimmer Self - patient is the insured Medical (General) History Medical History History ICD Code neuropathy kidney disease high blood pressure headaches/migraines back, hip, knee pain asthma Anxiety disorder Surgical History Surgery Date(Month/Year) cyst removal 1985
--- OUTSIDE RECORDS SUMMARY | 2024-11-12 15:39 | XMS_ITS | Encounter Summary ---
Author Organization [facility], Address [address] [place] [address] Phone Care Team Providers Care Instrumental Music Teacher Name Role Phone Asa Johnson DO Primary Care Provider [phone] Encounter Details Date Type Department Care Team (Late st Contact Info) Description 02/06/2023 Documentation Only [facility], - [address] [facility] [address] [place] [phone] Juan R Presley MD Social History Tobacco [...] on filedocumented in this encounter Care Teams Instrumental Music Teacher Relationship Specialty Start Date End Date Asa Johnson DO [address] [facility] [place] [phone] PCP - General 01/08/19 documented as of this encounter
--- OUTSIDE RECORDS SUMMARY | 2024-11-12 15:39 | XMS_ITS | Encounter Summary ---
Author Organization [facility], Address [address] [place] [address] Phone Care Team Providers Care Karate Black Belt Name Role Phone Asa Johnson DO Primary Care Provider [phone] Encounter Details Date Type Department Care Team (Late st Contact Info) Description 07/15/2022 Documentation Only [facility], - [address] [facility] [address] [place] [phone] Juan R Presley MD Social History Tobacco [...] on filedocumented in this encounter Care Teams Karate Black Belt Relationship Specialty Start Date End Date Asa Johnson DO [address] [place] [phone] PCP - General 01/08/19 documented as of this encounter
--- OUTSIDE RECORDS SUMMARY | 2024-11-12 15:39 | XMS_ITS | Encounter Summary ---
Author Organization [facility], Address [address] [place] [address] Phone Care Team Providers Care Tile Machine Operator Name Role Phone Asa Johnson DO Primary Care Provider [phone] Encounter Details Date Type Department Care Team (Late st Contact Info) Description 02/14/2020 Orders Only [facility] - [facility] [address] [facility] [address] [place] [address] Juan R Presley MD Chronic kidney disease [...] (HCC) documented in this encounter Care Teams Tile Machine Operator Relationship Specialty Start Date End Date Asa Johnson DO [address] [place] [phone] PCP - General 01/08/19 documented as of this encounter
--- OUTSIDE RECORDS SUMMARY | 2024-11-12 15:39 | XMS_ITS | Encounter Summary ---
Author Organization [facility] Address [address] [place] [address] Phone Care Team Providers Care Customer Care Assistant Name Role Phone AlexAsa DO Unavailable Lexie Tomlinson PHARMACY TECHNICIAN INSTRUCTOR Unavailable [phone] Miladis Mckeon PHARMACY TECHNICIAN INSTRUCTOR Unavailable [phone] Andre Dias MD Unavailable [phone] Alejandro Goldberg MD Unavailable [phone] Asa Johnson DO Primary Care Provider [phone] Asa Johnson DO Unavailable Asa Johnson DO Primary Care Provider [phone] Encounter Details Date Type Department Care Team (Late st Contact Info) Description 04/16/2020 Procedure Pass [facility], Ct Scan - [address] [address] Social History Tobacco Use Types Packs/Day Years [...] Date of Assessment Author No Risk Indicated 04/16/2020 4:31 PM Carola Dotson RN * [place] Suicide Severity Rating Scale (Screener/Recent Self-Report) Question Answer Date of Assessment Author 1. Wish to be (Past 1 Month) No 04/16/2020 4:31 PM Kyler Cedeño RN 2. Non-Specific Active Suicidal Thoughts (Past 1 Month) No 04/16/2020 4:31 PM Kyler Cedeño RN 6. Suicidal Behavior (Lifetime) No 04/16/2020 4:31 PM Kyler Cedeño RN documented as of this encounter Plan of Treatment Upcoming Encounters Date Type Department Care Team (Late st Contact Info) Description 11/14/2024 8:15 AM EDT Hospital Encounter [facility] [address] [place] [address] Asa Johnson DO [address] [facility] [place] [address] 08/01/2025 9:00 AM EDT Office Visit [facility] [address] [place] [address] [address]rd Floor, [address] [address] Demar Perdomo MD, MS 22 [facility], [address] [address] documented as of this encounter Visit Diagnoses Not on filedocumented in this encounter Care Teams Customer Care Assistant Relationship Specialty Start Date End Date Asa Johnson DO PCP - General 03/09/17 03/28/24 Asa Johnson DO [address] [facility] [place] [address] PCP - General Internal Medicine 03/29/24 Asa Johnson DO Historical LMR Provider 12/19/16 Lexie Tomlinson PHARMACY TECHNICIAN INSTRUCTOR [address] [place] [phone] Historical LMR Provider 12/19/16 2 Miladis Mckeon NP [address] [place] [address] [email or web address] Historical LMR Provider 12/19/16 2 Andre Dias MD [address] [address] Historical LMR Provider 12/19/16 Alejandro Goldberg MD [address] [place] [address] Historical LMR Provider 12/19/16 2 Asa Johnson DO [address] [place] [address] [place] [address] Insurance Assigned Provider 04/07/18 07/23/22 documented as of this encounter Additional Source Comments The information contained in this document represents components of the legal health record. It is not the complete legal health record.[facility]
--- OUTSIDE RECORDS SUMMARY | 2024-11-12 15:39 | XMS_ITS | Encounter Summary ---
Author Organization [facility], Address [address] [place] [address] Phone Care Team Providers Care Business Law Teacher Name Role Phone Asa Johnson DO Primary Care Provider [phone] Encounter Details Date Type Department Care Team (Late st Contact Info) Description 07/15/2022 Documentation Only [facility], - [address] [facility] [address] [place] [phone] Juan R Presley MD Social History Tobacco [...] on filedocumented in this encounter Care Teams Business Law Teacher Relationship Specialty Start Date End Date Asa Johnson DO [address] [facility] [place] [phone] PCP - General 01/08/19 documented as of this encounter
--- OUTSIDE RECORDS SUMMARY | 2024-11-12 15:39 | XMS_ITS | Encounter Summary ---
Author Organization [facility], Address [address] [place] [address] Phone Care Team Providers Care Traffic Administrator Name Role Phone Asa Johnson DO Primary Care Provider [phone] Encounter Details Date Type Department Care Team (Late st Contact Info) Description 02/06/2023 Documentation Only [facility], - [address] [facility] [address] [place] [phone] Juan R Presley MD Social History Tobacco [...] on filedocumented in this encounter Care Teams Traffic Administrator Relationship Specialty Start Date End Date Asa Johnson DO [address] [facility] [phone] PCP - General 01/08/19 documented as of this encounter
--- OUTSIDE RECORDS SUMMARY | 2024-11-12 15:39 | XMS_ITS | Encounter Summary ---
Author Organization [facility] Address [address] [place] [address] Phone Care Team Providers Care Sludge Filtration Operator Name Role Phone Asa Johnson DO Unavailable Lexie Tomlinson GENERAL ACCOUNTING CLERK Unavailable [phone] Miladis Mckeon GENERAL ACCOUNTING CLERK Unavailable Andre Dias MD Unavailable [phone] Alejandro Goldberg MD Unavailable [phone] Asa Johnson DO Primary Care Provider [phone] Asa Johnson DO Unavailable Alex, Asa Hernández DO Primary Care Provider [phone] Encounter Details Date Type Department Care Team (Late st Contact Info) Description 03/22/2018 Ancillary Orders [facility],Outside Imaging [address] [place] [address] System, Provider Not In, PhD [address] [address] Social History Tobacco Use Types Packs/Day Years [...] EDT Hospital Encounter [facility] [address] [place] [address] Asa Johnson DO [address] [facility] [place] [address] [email or web address] 08/01/2025 9:00 AM EDT Office Visit [facility] [address] [facility] 3rd Floor, [address] [place] [address] Demar Perdomo MD, MS 22 [facility], [address] [place] [address] [email or web address] documented as of this encounter Results * Mammogram Outside (No Interpretation) (01/10/2017 12:00 AM EST) Narrative SYSTEMGENERATED, DOCUMENTATION - 03/22/2018 1:43 PM EST This study is for PACS storage only and not for interpretation. us Provider Not In System PhD IMG OUTSIDE IMAGING W /OUT INTERPRETATION Final Result * Mammogram Outside (No Interpretation) (12/29/2015 12:00 AM EDT) Narrative SYSTEMGENERATED, DOCUMENTATION - 03/22/2018 1:42 PM EST This study is for PACS storage only and not for interpretation. us Provider Not In System PhD IMG OUTSIDE IMAGING W /OUT INTERPRETATION Final Result documented in this encounter Visit Diagnoses Not on filedocumented in this encounter Care Teams Sludge Filtration Operator Relationship Specialty Start Date End Date Asa Johnson DO [email or web address] PCP - General 03/09/17 03/28/24 Asa Johnson DO [address] [facility] [place] [address] PCP - General Internal Medicine 03/29/24 Asa Johnson DO Historical LMR Provider 12/19/16 Lexie Tomlinson GENERAL ACCOUNTING CLERK [address] [place] [phone] Historical LMR Provider 12/19/16 2 Miladis Mckeon NP [address] [place] [address] [email or web address] Historical LMR Provider 12/19/16 2 Andre Dias MD [address] [address] Historical LMR Provider 12/19/16 Alejandro Goldberg MD [address] [place] [address] Historical LMR Provider 12/19/16 2 Asa Johnson DO [address] [place] [address] [place] [address] Insurance Assigned Provider 04/07/18 07/23/22 documented as of this encounter Additional Source Comments The information contained in this document represents components of the legal health record. It is not the complete legal health record.[facility]
--- OUTSIDE RECORDS SUMMARY | 2024-11-12 15:39 | XMS_ITS | Encounter Summary ---
Author Organization [facility], Address [address] [place] [address] Phone Care Team Providers Care Bartender Name Role Phone Asa Johnson DO Primary Care Provider [phone] Encounter Details Date Type Department Care Team (Late st Contact Info) Description 02/06/2023 Documentation Only [facility], - [address] [facility] [address] [place] [phone] Juan R Presley MD Social History Tobacco [...] on filedocumented in this encounter Care Teams Bartender Relationship Specialty Start Date End Date Asa Johnson DO [address] [facility] [place] [phone] PCP - General 01/08/19 documented as of this encounter
== END 2024-11-12 13:17 | disposition home or self-care (01) ==
LOC: HO.LAB 13:16
PROVIDERS: PCP Internal Medicine; Visit Provider Internal Medicine Hypertension Specialist
DX: N18.4 Chronic kidney disease, stage 4 (severe) (principal)
CPT/HCPCS: 36415; 81001; 81003; 83970; 84100; 84520

== ENCOUNTER 2024-11-14 16:28 | Outpatient (AMB) | payer BC, SELFPAY ==
--- OUTSIDE RECORDS SUMMARY | 2024-11-14 07:35 | XMS_ITS | Encounter Summary ---
Author Organization [facility] Address [address] [address] Phone Care Team Providers Care Manufacturing Engineering Technician Name Role Phone Asa Johnson DO Unavailable Andre Dias MD Unavailable [phone] Asa Johnson DO Primary Care Provider [phone] Reason for Visit * Auth/Cert (Routine) Specialty Diagnoses / Procedures Referred By Contac t Referred To Contact Referral ID Status Reason Start Date Expiration Date Visits Re quested Visits Authorized [id number] 1 1 Encounter Details Date Type Department Care Team (Late st Contact Info) Description 11/14/2024 7:35 AM EDT Hospital Encounter [facility] [address] [place] [address] Asa Johnson DO [address] [facility] [place] [address] [email or web address] Arrived Social History Tobacco Use Types Packs/Day Years [...] Care Team (Late st Contact Info) Description 08/01/2025 9:00 AM EDT Office Visit [facility] [address] [place] [address] 3rd Floor, [address] [place] [address] Demar Perdomo MD, MS [address] [facility], [address] [place] [address] [email or web address] [email or web address] Results Name Type Priority Associated Diagnoses Date /Time Pulmonary Function Test Reason for Exam: Asthma; Type of PFT Test: Spirometry with bronchodilator, Lung Volumes, DLCO; Performing Location: [facility] PFT Routine Moderate persistent asthma, unspecified whether complicated 11/14/2024 9:10 AM EDT documented as of this encounter Procedures Procedure Name Priority Date/Time Associated Diagnosis Comments PULMONARY FUNCTION TEST Routine 11/14/2024 9:10 AM EDT Moderate persistent asthma, unspecified whether complicated documented in this encounter Visit Diagnoses Diagnosis Moderate persistent asthma, unspecified whether complicated documented in this encounter Administered Medications Inactive Administered Medications - up to 3 most recent administrations Medication Order MAR Action Action Date Dose Rate Site albuterol 90 mcg/actuation inhaler 2-4 puff 2-4 puff, Inhalation, Once, On Wendy 11/14/24 at 0945, For 1 dose, Pulmonary , Shake Well Given 11/14/2024 8:49 AM EDT 2 puffs documented in this encounter Care Teams Manufacturing Engineering Technician Relationship Specialty Start Date End Date Asa Johnson DO [address] [facility] [address] PCP - General Internal Medicine 03/29/24 Asa Johnson DO [email or web address] Historical LMR Provider 12/19/16 Andre Dias MD [address] [place] [address] [email or web address] Historical LMR Provider 12/19/16 documented as of this encounter Additional Source Comments The information contained in this document represents components of the legal health record. It is not the complete legal health record.[facility]
[2024-11-14 16:34] VITALS: BP 116/78; PULSE 91; O2SAT 97; BMI 33.8
--- NOTE | 2024-11-14 16:34 | HO.NEPHOV ---
Vital Signs 11/14/24 16:34 Height 5 ft 3 in Weight 191 lb BMI 33.8 BP 116/78 Blood Pressure Location Rt brachial Position Sitting Pulse 91 Pulse Source Pulse Oximeter Pulse Oximetry (%) 97 Oxygen Delivery Method Room Air Intake Visit Reasons: FU/ Needs late appt due to work Cooker Process Cheese Required: No Accompanied by: Self / Same As Patient Allergies hydrocodone (From VICODIN) Allergy (Unknown, Verified 08/09/24 11:31) VOMITTING latex (Latex) Allergy (Unknown, Verified 08/09/24 11:31) HANDS GET ITCHY AND PUFFY Medication List - Last Reconciled 11/14/24 by Ernesto Mar MD albuterol sulfate mg inhalation Q6H PRN allopurinol 1 tab PO BID aripiprazole 2 tabs PO DAILY aripiprazole 5 mg PO DAILY cetirizine (Zyrtec) 10 mg PO DAILY PRN gkwmrkkxutm-gelxrgpll-urcncsza 200-62.5-25 mcg (Trelegy Ellipta) 1 puff inhalation DAILY furosemide 1 tab PO 2XW lorazepam 0.5 mg PO PRN propranolol 20 mg PO BID simvastatin 1 tab PO DAILY sodium bicarbonate 650 mg PO DAILY PRN sumatriptan succinate 100 mg PO DAILY PRN HPI Comments Details: Shannon is a pleasant 48-year-old woman with CKD. She has had CKD since the age of 21. She was previously seen by Dr. Haq Recently serum creatinine was 3.4 with a EGFR of 14 mL/minute and hence this referral. 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 08/09/24 48-year-old female presenting with management of her Chronic Kidney Disease Known for long-standing Focal Segmental Glomerulosclerosis, the patient underwent imaging, which identified a small renal cyst and atrophy in the right kidney, correlated with disease progression. The recent ultrasound showed the right kidney at 8.8 cm, smaller than the left at 11 cm. Her creatinine levels have improved to 3.1 mg/dL compared to 3.59 mg/dL, with a 16% estimated glomerular filtration rate and a 26% function in a 24-hour urine collection test. She denies significant nausea or vomiting. The patient uses furosemide twice a week for fluid management. A hypertensive history has been stable with recorded blood pressure at 114/80 mmHg. Proteinuria remains a condition noted in testing, with two grams of protein in the urine collection. The potential benefit of a transplant has been addressed, considering fluctuating GFR results, bordering between stages 4 and 5 CKD. A high parathyroid hormone level reflects renal function implications, with current management including vitamin D supplementation to address secondary hyperparathyroidism. 11/15/24 The patient is a 48-year-old female presenting with weight loss and decreased appetite. She attributes her decreased appetite to stress from her house being foreclosed. Weight has decreased from 203 lbs in July to 191 lbs in November. Denies nausea or vomiting. Blood pressure is 116/78 mmHg, and kidney function is stable. Reports slight leg edema, considered expected. Considering [facility] for kidney transplant evaluation. Social History: - Housing: Patient's house is being foreclosed, contributing to stress and decreased appetite. [facility] Medical History (Updated 07/12/24 @ 14:27 by Ernesto Mar MD) Plantar fasciitis Encounter for prophylactic removal of ovary Hx of bleeding following renal biopsy Ganglion of right wrist Seasonal allergies Depression Gout Migraines Anxiety Asthma HLD (hyperlipidemia) Hypothyroid Anemia HTN (hypertension) CKD (chronic kidney disease) Social History Patient Tobacco Use Status: Never used Tobacco Physical Exam Vital Signs: Last Vital Signs Pulse 91 11/14/24 16:34 BP 116/78 11/14/24 16:34 Pulse Ox 97 11/14/24 16:34 Oxygen Delivery Method Room Air 11/14/24 16:34 BMI result Body Mass Index 33.8 Const General: comfortable; No acute distress Orientation/consciousness: patient oriented x3 Eyes General: appearance normal, both eyes and all related structures Visual Lugo: normal visual lugo by confrontation Neck Neck: Yes supple and Yes no JVD Resp Effort & Inspection: normal respiratory effort and respiratory effort not decreased Cardio Palpation: no palpable S3 and no palpable S4 Heart sounds: no rubs GI Inspection: Yes normal to inspection Palpation (GI): Soft to palpation Percussion: Yes normal to percussion Auscultation: normal bowel sounds General: Yes no CVA tenderness Back/Spine/Pelvis Back: no CVA tenderness Skin General skin exam: no petechiae and no purpura Neuro General: patient oriented x3 and no focal motor deficits Extrem General: No clubbing and No edema Results Reviewed Nephrology Results: Hgb, (12.0-16.0) 13.1 g/dl 06/07/24 WBC, (4.8-10.8) 9.8 X10*3/uL 06/07/24 Plt Count, (160-400) 292 X10*3/uL 06/07/24 Sodium, (135-145) 142 mmol/L 10/04/24 Potassium, (3.3-5.1) 4.0 mmol/L 10/04/24 Chloride, (96-108) 115 mmol/L H 10/04/24 Carbon Dioxide, (22-29) 21 mmol/L L 10/04/24 BUN, (9-16) 41 mg/dL H 11/12/24 Creatinine, (0.5-1.4) 3.38 mg/dL H 10/04/24 Calcium, (8.4-10.2) 8.8 mg/dL 10/04/24 Phosphorus, (2.7-4.5) 2.9 mg/dL 11/12/24 PTH Intact, (8.7-77.1) 127.3 pg/mL H 11/12/24 Urine Protein, (Neg-Trace) 100 (2+) mg/dL H 11/12/24 Renal US 07/30/24 Assessment & Plan Assessment & Plan (1) CKD (chronic kidney disease): Comment: Stage 4 Code(s): N18.9 - Chronic kidney disease, unspecified Category: Medical Plan: 48-year-old woman with 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 At present no signs or symptoms of uremia. Fluid status is acceptable. 24 hour urine collection shows Cr CL of about 26 ml/mt and 2200 mg of proteinuria. Vit D is low and intact PTH ais elevated due to hyperparathyroidism Start Vit D and recheck iPTH Encouraged her to stay on low-sodium diet Continue to avoid nephrotoxic agents including NSAIDs. Refer for preemptive renal transplantation at [facility] 08/09/24 - Enroll in kidney transplant program as discussed. - Continue 2000 IU of vitamin D daily. - Take sodium bicarbonate, one tablet daily for high blood acid level. - Avoid red meat; prefer fish or turkey. - Stay active as able; walking is recommended. - Re-evaluate kidney function and lab tests before next appointment. - Return for a follow-up appointment in two to three months. - Report any new or concerning symptoms immediately. 11/15/24 Overall stable No s/s of uremia BP acceptable Volume status acceptable. No changes today Orders: Orders Basic Metabolic Panel 3 Months N18.9 - Chronic kidney disease, unspecified Complete Blood Count no Diff 3 Months N18.9 - Chronic kidney disease, unspecified Coding Level of Care Code Est Pt Level 4 (13230) Diagnoses CKD (chronic kidney disease) N18.9
--- OUTSIDE RECORDS SUMMARY | 2024-11-14 18:57 | XMS_ITS | Encounter Summary ---
Author Organization [facility] Address [address] [facility] [address] [place] [address] Phone Care Team Providers Care Granite Countertop Installer Name Role Phone Asa Johnson DO Unavailable Andre Dias MD Unavailable [phone] Asa Johnson DO Primary Care Provider [phone] Asa Johnson DO Primary Care Provider [phone] Reason for Visit * Reason Onset Date Comments Medication Refill 08/16/2023 Encounter Details Date Type Department Care Team (Late st Contact Info) Description 08/16/2023 Refill [facility] [address] [facility] 3rd Floor, [address] [place] [address] Isabelle Guaman MA 22 [place] [address] Medication Refill Social History Tobacco Use Types [...] Description 08/01/2025 9:00 AM EDT Office Visit [facility] [address] [place] [address] 3rd Floor, [address] [place] [address] Demar Perdomo MD, MS [address] [facility], [address] [place] [address] documented as of this encounter Visit Diagnoses Diagnosis Moderate persistent asthma without complication documented in this encounter Care Teams Granite Countertop Installer Relationship Specialty Start Date End Date Asa Johnson DO PCP - General 03/09/17 03/28/24 Asa Johnson DO [address] [place] [address] [address] [place] [address] PCP - General Internal Medicine 03/29/24 Asa Johnson DO Historical LMR Provider 12/19/16 Andre Dias MD [address] [facility], [address] [place] [address] [email or web address] Historical LMR Provider 12/19/16 documented as of this encounter Additional Source Comments The information contained in this document represents components of the legal health record. It is not the complete legal health record.[facility]
--- OUTSIDE RECORDS SUMMARY | 2024-11-14 18:57 | XMS_ITS | Encounter Summary ---
Author Organization [facility], Address [address] [place] [address] Phone Care Team Providers Care Criminology Professor Name Role Phone Asa Johnson DO Primary Care Provider Encounter Details Date Type Department Care Team (Late st Contact Info) Description 02/06/2023 Documentation Only [facility], - [place] [address] [facility] [address] [place] [phone] Juan R Presley MD Social History Tobacco [...] on filedocumented in this encounter Care Teams Criminology Professor Relationship Specialty Start Date End Date Asa Johnson DO [address] [facility] [place] [place] [phone] PCP - General 01/08/19 documented as of this encounter
--- OUTSIDE RECORDS SUMMARY | 2024-11-14 18:57 | XMS_ITS | Encounter Summary ---
Author Organization [facility], Address [address] [place] [address] Phone Care Team Providers Care Supercharger Mechanic Name Role Phone Asa Johnson DO Primary Care Provider [phone] Encounter Details Date Type Department Care Team (Late st Contact Info) Description 02/06/2023 Documentation Only [facility], - [place] [address] [facility] [address] [place] [phone] Juan R Presley MD Social History Tobacco [...] on filedocumented in this encounter Care Teams Supercharger Mechanic Relationship Specialty Start Date End Date Asa Johnson DO [address] [facility] [place] [phone] PCP - General 01/08/19 documented as of this encounter
--- OUTSIDE RECORDS SUMMARY | 2024-11-14 18:57 | XMS_ITS | Encounter Summary ---
Author Organization [facility] Address [address] [address] Phone Care Team Providers Care Bindery Supervisor Name Role Phone Alex Asa Hernández DO Unavailable Andre Dias MD Unavailable [phone] Asa Johnson DO Primary Care Provider [phone] Asa Johnson DO Primary Care Provider [phone] Reason for Visit * Reason Comments Medication Refill Encounter Details Date Type Department Care Team (Late st Contact Info) Description [facility] [address] [place] [address] 3rd Floor, [address] [place] [address] Alejandro Torres MD [address] [place] [address], [address] [address] [email or web address] Medication Refill Social History Tobacco Use Types [...] Description 08/01/2025 9:00 AM EDT Office Visit [facility] [address] [place] [address] 3rd Floor, [address] [place] [address] Demar Perdomo MD, MS 22 [facility] [address] [place] [address] documented as of this encounter Visit Diagnoses Diagnosis Moderate persistent asthma without complication documented in this encounter Care Teams Bindery Supervisor Relationship Specialty Start Date End Date Asa Johnson DO PCP - General 03/09/17 03/28/24 Asa Johnson DO [address] [place] [address] [place] [address] PCP - General Internal Medicine 03/29/24 Asa Johnson DO Historical LMR Provider 12/19/16 Andre Dias MD 22 [facility] [address] [place] [address] Historical LMR Provider 12/19/16 documented as of this encounter Additional Source Comments The information contained in this document represents components of the legal health record. It is not the complete legal health record.[facility]
--- OUTSIDE RECORDS SUMMARY | 2024-11-14 18:57 | XMS_ITS | Encounter Summary ---
Author Organization [facility] Address [address] [address] Phone Care Team Providers Care Target Network Analyst Name Role Phone Asa Johnson DO Unavailable Lexie Tomlinson FIRE ALARM DISPATCHER Unavailable [phone] Miladis Mckeon FIRE ALARM DISPATCHER Unavailable [phone] Andre Dias MD Unavailable [phone] Alejandro Goldberg MD Unavailable [phone] Asa Johnson DO Primary Care Provider [phone] Asa Johnson DO Unavailable Asa Johnson DO Primary Care Provider [phone] Encounter Details Date Type Department Care Team (Late st Contact Info) Description 03/19/2019 Transcribe Orders [facility] [address] [place] [address] Asa Johnson DO [address] [facility] [address] [place], [place] [id number] Chronic kidney disease, stage IV (severe) (Primary [...] Description 08/01/2025 9:00 AM EDT Office Visit [facility] 22 [facility] 3rd Floor, [address] [place] [address] Demar Perdomo MD, MS 22 [facility], [address] [place] [address] [email or web address] documented as of this encounter Results * (ABNORMAL) Comprehensive metabolic panel (03/19/2019 10:13 AM EST) SODIUM 139 133 - 146 mmol/L [facility] POTASSIUM 4.1 3.3 - 5.1 mmol/L [facility] CHLORIDE 107 96 - 108 mmol/L [facility] CO2 19(L) 21 - 35 mmol/L [facility] BUN 47(H) 6 - 19 mg/dL [facility] CREATININE 2.90(H) 0.5 - 1.5 mg/dL [facility] GLUCOSE 87 70 - 99 mg/dL [facility] ALBUMIN 4.1 3.9 - 4.8 g/dL [facility] TOTAL PROTEIN 7.5 6.5 - 8.0 g/dL [facility] CALCIUM 9.4 8.4 - 10.3 mg/dL [facility] ALKALINE PHOSPHATASE 57 39 - 117 U/L [facility] TOTAL BILIRUBIN 0.2 0.0 - 1.2 mg/dL [facility] AST 17 0 - 37 U/L [facility] ALT 17 0 - 40 U/L [facility] GLOBULIN 3.4 1 - 4.8 g/dL [facility] EGFR 19(L) >59 mL/min/1.7 3m2 [facility] Comment:If patient is black, multiply result by 1.159. Estimated glomerular filtration rate calculated using the CKD-EPI equation. ANION GAP 17 10 - 20 mmol/L [facility] Blood 03/19/2019 10:1 3 AM EST 03/19/2019 12:40 PM EST us Asa A Bigda DO LAB BLOOD ORDERABLES Final Resul t Performing Organization Address [facility] de Phone Number [address] [address] * (ABNORMAL) Uric acid (03/19/2019 10:13 AM EST) URIC ACID 8.3(H) 2.4 - 7.0 mg/dL [facility] Blood 03/19/2019 10:1 3 AM EST 03/19/2019 12:40 PM EST us Asa A Bigda DO LAB BLOOD ORDERABLES Final Resul t Performing Organization Address [facility] Phone Number [address] [address] * 25-OH vitamin D (03/19/2019 10:13 AM EST) 25 OH VIT D (TOTAL) 42 30 - 60 ng/mL [facility] Blood 03/19/2019 10:1 3 AM EST 03/19/2019 12:40 PM EST us Asa A Bigda DO LAB BLOOD ORDERABLES Final Resul t Performing Organization Address [facility] de Phone Number [address] [address] * Magnesium (03/19/2019 10:13 AM EST) MAGNESIUM 2.1 1.6 - 2.6 mg/dL [facility] Blood 03/19/2019 10:1 3 AM EST 03/19/2019 12:40 PM EST us Asa A Bigda DO LAB BLOOD ORDERABLES Final Resul t Performing Organization Address [facility] de Phone Number [address] [place] [address] * (ABNORMAL) Parathyroid hormone (PTH) (03/19/2019 10:13 AM EST) PARATHYROID HORMONE 71(H) 15 - 65 pg/mL [facility] Blood 03/19/2019 10:1 3 AM EST 03/19/2019 1:28 PM EST us Asa A Bigda DO LAB BLOOD ORDERABLES Final Resul t [facility] [address] [place] [address] * (ABNORMAL) CBC and differential (03/19/2019 10:13 AM EST) WBC 12.71(H) 3.40 - 11.20 K/uL [facility] RBC 4.79 3.80 - 4.80 M/uL [facility] HGB 14.5 12.0 - 15.0 g/dL [facility] HCT 42.2 36.0 - 46.0 % [facility] PLT 284 130 - 400 K/uL [facility] MCV 88.1 79.0 - 98.0 fL [facility] MCH 30.3 27.0 - 34.8 pg [facility] MCHC 34.4 31.5 - 36.0 g/dL [facility] RDW 12.7 10.8 - 14.6 % [facility] MPV 10.4 9.4 - 12.4 fl [facility] NRBC 0.00 0.00 /100 WBCs [facility] ABSOLUTE NRBC 0.00 0.00 K/uL [facility] DIFF METHOD Auto [facility] NEUTS 79.1(H) 45.30 - 77.70 % [facility] LYMPHS 14.0 12.30 - 39.70 % [facility] MONOS 4.3 4.10 - 12.80 % [facility] EOS 1.1 0 - 7.2 % [facility] BASOS 0.6 0 - 2.80 % [facility] Granulocytes, immature (%) 0.9 0.0 - 0.9 % [facility] ABSOLUTE NEUTS 10.05(H) 1.40 - 7.70 K/uL [facility] ABSOLUTE LYMPHS 1.78 0.60 - 3.20 K/uL [facility] ABSOLUTE MONOS 0.55 0.11 - 0.59 K/uL [facility] ABSOLUTE EOS 0.14 0.01 - 0.50 K/uL [facility] ABSOLUTE BASOS 0.07 0.00 - 0.08 K/uL [facility] Granulocytes, immature 0.12(H) 0.00 - 0.05 K/uL [facility] Blood 03/19/2019 10:1 3 AM EST 03/19/2019 12:40 PM EST us Asa Johnson DO LAB BLOOD ORDERABLES Final Resul t [facility] [address] [place] [address] documented in this encounter Visit Diagnoses Diagnosis Chronic kidney disease, stage IV (severe)- Primary Chronic kidney disease, Stage IV (severe) documented in this encounter Care Teams Target Network Analyst Relationship Specialty Start Date End Date Asa Johnson DO PCP - General 03/09/17 03/28/24 Asa Johnson DO [address] [place] [address] PCP - General Internal Medicine 03/29/24 Asa Johnson DO Historical LMR Provider 12/19/16 Lexie Tomlinson NP [facility] [place] [address] Historical LMR Provider 12/19/16 2 Miladis Mckeon NP 21 [place] [address] [email or web address] Historical LMR Provider 12/19/16 2 Andre Dias MD [address] [place] [address] [email or web address] Historical LMR Provider 12/19/16 Alejandro Goldberg MD [address] [place] [address] Historical LMR Provider 12/19/16 2 Asa Johnson DO [address] [place] [address] [email or web address] Insurance Assigned Provider 04/07/18 07/23/22 documented as of this encounter Additional Source Comments The information contained in this document represents components of the legal health record. It is not the complete legal health record.[facility]
--- OUTSIDE RECORDS SUMMARY | 2024-11-14 18:57 | XMS_ITS | Encounter Summary ---
Author Organization [facility] Address [address] [place] [address] Phone Care Team Providers Care Radiagraph Operator Name Role Phone Asa Johnson DO Unavailable Lexie Tomlinson AEROPLANE PILOT Unavailable [phone] Miladis Mckeon AEROPLANE PILOT Unavailable [phone] Andre Dias MD Unavailable [phone] Alejandro Goldberg MD Unavailable [phone] Alex, Asa Edgar DO Primary Care Provider [phone] Bigda, Asa Hernández DO Unavailable Bigda, Asa Edgar DO Primary Care Provider [phone] Encounter Details Date Type Department Care Team (Latest Contact Info) Description 02/06/2019 Transcribe Orders [facility] [address] [place] [address] Juan R Presley MD 51 [facility], [address] [place], [place] [id number] [email or web address] Nephrogenous proteinuria (Primary Dx) Social History Tobacco [...] Description 08/01/2025 9:00 AM EDT Office Visit [facility] [address] [facility] 3rd Floor, [address] [place] [address] Demar Perdomo MD, MS 22 [facility], [address] [place] [address] [email or web address] documented as of this encounter Results * TOTAL PROTEIN CREATININE RATIO, RANDOM URINE (08/29/2019 7:39 AM EDT) URINE TOTAL PROTEIN 5.3 mg/dL [facility] URINE CREATININE 60 mg/dL [facility] URINE TP CRE RATIO 0.09 0 - 0.19 [facility] Urine (Urine) 08/29/2019 7:3 9 AM EDT 08/29/2019 7:44 AM EDT us Juan R Presley MD URINE ORDERABLES Final Result [facility] [address] [place] [address] * (ABNORMAL) CBC and differential (08/29/2019 7:39 AM EDT) WBC 9.86 4.00 - 11.00 K/uL [facility] Comment:Note Reference Range updates to all CBC and Differential results. RBC 4.32 3.72 - 5.30 M/uL [facility] HGB 12.9 10.6 - 15.5 g/dL [facility] Comment:Note updated Referen ce Ranges for all CBC and Differential results. HCT 39.4 32.0 - 45.0 % [facility] PLT 219 140 - 430 K/uL [facility] MCV 91.2 78.0 - 97.0 fL [facility] MCH 29.9 25.0 - 33.0 pg [facility] MCHC 32.7 32.0 - 36.0 g/dL [facility] RDW 12.9 11.0 - 16.0 % [facility] MPV 11.9 8.4 - 12.8 fl [facility] NRBC 0.00 0 /100 WBCs [facility] ABSOLUTE NRBC 0.00 0 K/uL [facility] DIFF METHOD Auto [facility] NEUTS 65.8 43.0 - 75.0 % [facility] LYMPHS 22.2 18.2 - 47.4 % [facility] MONOS 8.0 4.00 - 11.00 % [facility] EOS 2.5 0.0 - 8.0 % [facility] BASOS 0.5 0.0 - 2.0 % [facility] Granulocytes, immature (%) 1.0(H) 0.0 - 0.9 % [facility] ABSOLUTE NEUTS 6.48 1.80 - 7.70 K/uL [facility] ABSOLUTE LYMPHS 2.19 1.00 - 3.10 K/uL [facility] ABSOLUTE MONOS 0.79 0.20 - 0.80 K/uL [facility] ABSOLUTE EOS 0.25 0.00 - 0.80 K/uL [facility] ABSOLUTE BASOS 0.05 0.00 - 0.09 K/uL [facility] Granulocytes, immature 0.10(H) 0.00 - 0.05 K/uL [facility] Blood 08/29/2019 7:39 AM EDT 08/29/2019 7:44 AM EDT us Juan R Presley MD LAB BLOOD ORDERABLES Final Re sult [facility] [address] [place] [address] * (ABNORMAL) Albumin (08/29/2019 7:39 AM EDT) ALBUMIN 3.7(L) 3.9 - 4.8 g/dL [facility] Blood 08/29/2019 7:39 AM EDT 08/29/2019 7:44 AM EDT us Juan R Presley MD LAB BLOOD ORDERABLES Final Re sult Performing Organization Address [facility]/ZIP Co de Phone Number [address] [address] * Magnesium (08/29/2019 7:39 AM EDT) MAGNESIUM 2.4 1.6 - 2.6 mg/dL [facility] Blood 08/29/2019 7:39 AM EDT 08/29/2019 7:44 AM EDT us Juan R Presley MD LAB BLOOD ORDERABLES Final Re sult Performing Organization Address [facility]/ZIP Co de Phone Number [address] [address] * Phosphorus (08/29/2019 7:39 AM EDT) PHOSPHORUS 3.9 2.7 - 4.5 mg/dL [facility] Blood 08/29/2019 7:39 AM EDT 08/29/2019 7:44 AM EDT us Juan R Presley MD LAB BLOOD ORDERABLES Final Re sult Performing Organization Address [facility] Co de Phone Number [address] [address] * (ABNORMAL) Basic metabolic panel (08/29/2019 7:39 AM EDT) SODIUM 141 133 - 146 mmol/L [facility] CHLORIDE 109(H) 96 - 108 mmol/L [facility] POTASSIUM 4.7 3.3 - 5.1 mmol/L [facility] CO2 17(L) 21 - 35 mmol/L [facility] BUN 83(H) 6 - 19 mg/dL [facility] CREATININE 2.80(H) 0.5 - 1.5 mg/dL [facility] GLUCOSE 88 70 - 99 mg/dL [facility] CALCIUM 9.2 8.4 - 10.3 mg/dL [facility] EGFR 20(L) >59 mL/min/1.7 3m2 [facility] Comment:Estimated glomerular filtration rate calculated using the CKD-EPI equation. ANION GAP 20 10 - 20 mmol/L [facility] Blood 08/29/2019 7:39 AM EDT 08/29/2019 7:44 AM EDT us Juan R Presley MD LAB BLOOD ORDERABLES Final Re sult [address] [address] * (ABNORMAL) Parathyroid hormone (PTH) (08/29/2019 7:39 AM EDT) PARATHYROID HORMONE 86(H) 15 - 65 pg/mL [facility] Blood 08/29/2019 7:39 AM EDT 08/29/2019 7:44 AM EDT Juan R Presley MD LAB BLOOD ORDERABLES Final Re sult Performing Organization Address City/[facility]/ZIP Co de Phone Number [address] [address] * (ABNORMAL) 25-OH vitamin D (08/29/2019 7:39 AM EDT) 25 OH VIT D (TOTAL) 29(L) 30 - 60 ng/mL [facility] Blood 08/29/2019 7:39 AM EDT 08/29/2019 7:44 AM EDT Juan R Presley MD LAB BLOOD ORDERABLES Final Re sult Performing Organization Address City/[facility]/ZIP Co de Phone Number [address] [address] * (ABNORMAL) TOTAL PROTEIN CREATININE RATIO, RANDOM URINE (02/06/2019 7:37 AM EST) URINE TOTAL PROTEIN 44.4 mg/dL [facility] URINE CREATININE 120 mg/dL [facility] URINE TP CRE RATIO 0.37(H) 0 - 0.19 [facility] Urine (Urine) 02/06/2019 7:3 7 AM EST 02/06/2019 9:57 AM EST us Juan R Presley MD URINE ORDERABLES Final Result Performing Organization Address City/State/[facility] Co de Phone Number [address] [address] * (ABNORMAL) CBC and differential (02/06/2019 7:37 AM EST) WBC 10.25 3.40 - 11.20 K/uL [facility] RBC 4.54 3.80 - 4.80 M/uL [facility] HGB 13.8 12.0 - 15.0 g/dL [facility] HCT 40.7 36.0 - 46.0 % [facility] PLT 235 130 - 400 K/uL [facility] MCV 89.6 79.0 - 98.0 fL [facility] MCH 30.4 27.0 - 34.8 pg [facility] MCHC 33.9 31.5 - 36.0 g/dL [facility] RDW 12.5 10.8 - 14.6 % [facility] MPV 10.4 9.4 - 12.4 fl [facility] NRBC 0.00 0.00 /100 WBCs [facility] ABSOLUTE NRBC 0.00 0.00 K/uL [facility] DIFF METHOD Auto [facility] NEUTS 71.3 45.30 - 77.70 % [facility] LYMPHS 18.8 12.30 - 39.70 % [facility] MONOS 6.3 4.10 - 12.80 % [facility] EOS 2.5 0 - 7.2 % [facility] BASOS 0.6 0 - 2.80 % [facility] Granulocytes, immature (%) 0.5 0.0 - 0.9 % [facility] ABSOLUTE NEUTS 7.30 1.40 - 7.70 K/uL [facility] ABSOLUTE LYMPHS 1.93 0.60 - 3.20 K/uL [facility] ABSOLUTE MONOS 0.65(H) 0.11 - 0.59 K/uL [facility] ABSOLUTE EOS 0.26 0.01 - 0.50 K/uL [facility] ABSOLUTE BASOS 0.06 0.00 - 0.08 K/uL [facility] Granulocytes, immature 0.05 0.00 - 0.05 K/uL [facility] Blood 02/06/2019 7:37 AM EST 02/06/2019 9:57 AM EST us Juan R Presley MD LAB BLOOD ORDERABLES Final Re sult Performing Organization Address City/[facility]/ZIP Co de Phone Number [address] [address] * (ABNORMAL) Albumin (02/06/2019 7:37 AM EST) ALBUMIN 3.7(L) 3.9 - 4.8 g/dL [facility] Blood 02/06/2019 7:37 AM EST 02/06/2019 9:57 AM EST Juan R Presley MD LAB BLOOD ORDERABLES Final Re sult Performing Organization Address City/[facility]/ZIP Co de Phone Number [address] [address] * Magnesium (02/06/2019 7:37 AM EST) MAGNESIUM 2.0 1.6 - 2.6 mg/dL [facility] Blood 02/06/2019 7:37 AM EST 02/06/2019 9:57 AM EST Juan R Presley MD LAB BLOOD ORDERABLES Final Re sult Performing Organization Address [facility] Co de Phone Number [address] [address] * Phosphorus (02/06/2019 7:37 AM EST) PHOSPHORUS 3.9 2.7 - 4.5 mg/dL [facility] Blood 02/06/2019 7:37 AM EST 02/06/2019 9:57 AM EST us Juan R Presley MD LAB BLOOD ORDERABLES Final Re sult [address] [address] * (ABNORMAL) Basic metabolic panel (02/06/2019 7:37 AM EST) SODIUM 140 133 - 146 mmol/L [facility] CHLORIDE 104 96 - 108 mmol/L [facility] POTASSIUM 3.9 3.3 - 5.1 mmol/L [facility] CO2 22 21 - 35 mmol/L [facility] BUN 33(H) 6 - 19 mg/dL [facility] CREATININE 2.50(H) 0.5 - 1.5 mg/dL [facility] GLUCOSE 107(H) 70 - 99 mg/dL [facility] CALCIUM 9.3 8.4 - 10.3 mg/dL [facility] EGFR 23(L) >59 mL/min/1.7 3m2 [facility] Comment:If patient is black, multiply result by 1.159. Estimated glomerular filtration rate calculated using the CKD-EPI equation. ANION GAP 18 10 - 20 mmol/L [facility] Blood 02/06/2019 7:37 AM EST 02/06/2019 9:57 AM EST us Juan R Presley MD LAB BLOOD ORDERABLES Final Re sult [address] [address] * (ABNORMAL) Parathyroid hormone (PTH) (02/06/2019 7:37 AM EST) PARATHYROID HORMONE 76(H) 15 - 65 pg/mL [facility] Blood 02/06/2019 7:37 AM EST 02/06/2019 9:57 AM EST us Juan R Presley MD LAB BLOOD ORDERABLES Final Re sult [address] [address] * 25-OH vitamin D (02/06/2019 7:37 AM EST) 25 OH VIT D (TOTAL) 44 30 - 60 ng/mL [facility] Blood 02/06/2019 7:37 AM EST 02/06/2019 9:57 AM EST us Juan R Presley MD LAB BLOOD ORDERABLES Final Re sult Performing Organization Address City/[facility]/ZIP Co de Phone Number [address] [address] documented in this encounter Visit Diagnoses Diagnosis Nephrogenous proteinuria- Primary documented in this encounter Care Teams Radiagraph Operator Relationship Specialty Start Date End Date Asa Johnson DO PCP - General 03/09/17 03/28/24 Asa Johnson DO [address] [place] [address] PCP - General Internal Medicine 03/29/24 Asa Johnson DO Historical LMR Provider 12/19/16 Lexie Tomlinson NP [facility] [place] [address] Historical LMR Provider 12/19/1603/13/2 2 Miladis Mckeon NP [address] [place] [address] [email or web address] Historical LMR Provider 12/19/16 2 Andre Dias MD [address] [place] [address] [email or web address] Historical LMR Provider 12/19/16 Alejandro Goldberg MD [address] [place] [address] Historical LMR Provider 12/19/16 2 Asa Johnson DO [address] [place] [address] [place] [address] [email or web address] Insurance Assigned Provider 04/07/18 07/23/22 documented as of this encounter Additional Source Comments The information contained in this document represents components of the legal health record. It is not the complete legal health record.[facility]
--- OUTSIDE RECORDS SUMMARY | 2024-11-14 18:57 | XMS_ITS | Encounter Summary ---
Author Organization [facility] Address [address] [place] [address] Phone Care Team Providers Care Tire Builder Heavy Service Name Role Phone LongAsa guillory DO Unavailable Andre Dias MD Unavailable [phone] [place], Asa Hernández DO Primary Care Provider [phone] Asa Johnson DO Unavailable Alex, Asa A DO Primary Care Provider [phone] Encounter Details Date Type Department Care Team (Late st Contact Info) Description 05/24/2021 Procedure [facility], Ct Scan - [address] [address] Social History Tobacco Use Types Packs/Day Years [...] 2:55 PM EDT Fred Dunlap, MARICEL * [place] Suicide Severity Rating Scale (Screener/Recent Self-Report) Question [...] Description 08/01/2025 9:00 AM EDT Office Visit [facility] [address] [place] [address] 3rd Floor, [address] [place] [address] Demar Perdomo MD, MS 22 [facility], [facility] 301 [place] [address] documented as of this encounter Visit Diagnoses Not on filedocumented in this encounter Care Teams Tire Builder Heavy Service Relationship Specialty Start Date End Date Asa Johnson DO PCP - General 03/09/17 03/28/24 Asa Johnson DO [address] [place] [address] [address] [place] [address] PCP - General Internal Medicine 03/29/24 Asa Johnson DO Historical LMR Provider 12/19/16 Andre Dias MD 22 [facility], [address] [place] [address] Historical LMR Provider 12/19/16 Asa Johnson DO [address] [place] [address] [email or web address] Insurance Assigned Provider 04/07/18 07/23/22 documented as of this encounter Additional Source Comments The information contained in this document represents components of the legal health record. It is not the complete legal health record.[facility]
--- OUTSIDE RECORDS SUMMARY | 2024-11-14 18:57 | XMS_ITS | Encounter Summary ---
Author Organization [facility] Address [address] [address] Phone Care Team Providers Care Dragger Out Name Role Phone Asa Johnson DO Unavailable Lexie Tomlinson NURSE SANE Unavailable Miladis Mckeon NURSE SANE Unavailable Andre Dias MD Unavailable Alejandro Goldberg MD Unavailable [phone] Asa Johnson DO Primary Care Provider [phone] Alex, Asa Hernández DO Unavailable Asa Johnson DO Unavailable Alex, Asa Hernández DO Primary Care Provider [phone] Encounter Details Date Type Department Care Team (Late st Contact Info) Description 03/09/2018 Ancillary Orders Virtual Department [address] [place] [address] Asa Johnson DO 179 [facility] [place] [place] [address] Visit for screening mammogram Social History Tobacco [...] Description 08/01/2025 9:00 AM EDT Office Visit [facility] 22 [facility] 3rd Floor, [address] [place] [address] Demar Perdomo MD, MS 22 [facility], [address] [place] [address] [email or web address] documented as of this encounter Results * [...] tissue is almost entirely fat. POS [id number] Asa Hernández Alex [facility] IMG MG EXAMS Final Result documented in this encounter Visit Diagnoses Diagnosis Visit for screening mammogram Visit for screening mammogram documented in this encounter Care Teams Dragger Out Relationship Specialty Start Date End Date Asa Johnson DO PCP - General 03/09/17 03/28/24 Asa Johnson DO [address] [place] [address] PCP - General Internal Medicine 03/29/24 Asa Johnson DO Historical LMR Provider 12/19/16 Lexie Tomlinson NP [address] [place] [phone] Historical LMR Provider 12/19/16 2 Miladis Mckeon NP 21 [place] [address] [email or web address] Historical LMR Provider 12/19/16 2 Andre Dias MD [address] [place] [address] Historical LMR Provider 12/19/16 Alejandro Goldberg MD [address] [place] [address] Historical LMR Provider 12/19/16 2 Asa Johnson DO [address] [place] [address] Insurance Assigned Provider 12/09/17 03/10/18 Asa Johnson DO [address] [place] [address] Insurance Assigned Provider 04/07/18 07/23/22 documented as of this encounter Additional Source Comments The information contained in this document represents components of the legal health record. It is not the complete legal health record.[facility]
--- OUTSIDE RECORDS SUMMARY | 2024-11-14 18:57 | XMS_ITS | Encounter Summary ---
Author Organization [facility] Address [address] [place] [address] Phone Care Team Providers Care Historical Interpreter Name Role Phone AlexAsa DO Unavailable Lexie Tomlinson DIE MAKER APPRENTICE Unavailable [phone] Miladis Mckeon DIE MAKER APPRENTICE Unavailable [phone] Andre Dias MD Unavailable [phone] Alejandro Goldberg MD Unavailable [phone] Asa Johnson DO Primary Care Provider [phone] Asa Johnson DO Unavailable Asa Johnson DO Primary Care Provider [phone] Encounter Details Date Type Department Care Team (Late st Contact Info) Description 04/16/2020 Procedure Pass [facility], Ct Scan - [address] [address] Social History Tobacco Use Types Packs/Day Years [...] 04/16/2020 4:31 PM Carola Dotson RN * [place] Suicide Severity Rating Scale (Screener/Recent Self-Report) Question [...] Upcoming Encounters Date Type Department Care Team ([facility] st Contact Info) Description 08/01/2025 9:00 AM EDT Office Visit [facility] [address] [place] [address] 3rd Floor, [address] [place] [address] Demar Perdomo MD, MS 22 [facility], [address] [address] [email or web address] documented as of this encounter Visit Diagnoses Not on filedocumented in this encounter Care Teams Historical Interpreter Relationship Specialty Start Date End Date Asa Johnson DO PCP - General 03/09/17 03/28/24 Asa Johnson DO 179 [facility] [place] [address] PCP - General Internal Medicine 03/29/24 Asa Johnson DO Historical LMR Provider 12/19/16 Lexie Tomlinson, DIE MAKER APPRENTICE [address] [place] [address] Historical LMR Provider 12/19/16 2 Miladsi Mckeon NP 21 [place] [address] [email or web address] Historical LMR Provider 12/19/16 2 Andre Dias MD [address] [address] [email or web address] Historical LMR Provider 12/19/16 Alejandro Goldberg MD 61 [place] [address] Historical LMR Provider 12/19/16 2 Asa Johnson DO 179 [place] [address] [email or web address] Insurance Assigned Provider 04/07/18 07/23/22 documented as of this encounter Additional Source Comments The information contained in this document represents components of the legal health record. It is not the complete legal health record.[facility]
--- OUTSIDE RECORDS SUMMARY | 2024-11-14 18:57 | XMS_ITS | Encounter Summary ---
Author Organization [facility], Address [address] [place] [address] Phone Care Team Providers Care Mat Man Name Role Phone Asa Johnson DO Primary Care Provider [phone] Encounter Details Date Type Department Care Team (Late st Contact Info) Description 07/15/2022 Documentation Only [facility], - [place] [address] [facility] [address] [place] [phone] Juan R Presley MD Social History Tobacco [...] on filedocumented in this encounter Care Teams Mat Man Relationship Specialty Start Date End Date Asa Johnson DO 6 [place] [address] PCP - General 01/08/19 documented as of this encounter
--- OUTSIDE RECORDS SUMMARY | 2024-11-14 18:57 | XMS_ITS | Encounter Summary ---
Author Organization [facility] Address [address] [address] Phone Care Team Providers Care Pyrotechnist Name Role Phone Asa Johnson DO Unavailable Lexie Tomlinson COMMERCIAL COLLECTIONS DRIVER Unavailable [phone] Miladis Mckeon COMMERCIAL COLLECTIONS DRIVER Unavailable [phone] Andre Dias MD Unavailable [phone] Alejandro Goldberg MD Unavailable [phone] Asa Johnson DO Primary Care Provider [phone] Asa Johnson DO Unavailable Asa Johnson DO Primary Care Provider [phone] Encounter Details Date Type Department Care Team (Late st Contact Info) Description 05/15/2019 Transcribe Orders Virtual Department [address] [place] [address] Asa Johnson DO 179 [facility] [place] [address] [place] [address] Chronic low back pain, unspecified back pain [...] Description 08/01/2025 9:00 AM EDT Office Visit [facility] 22 [facility] 3rd Floor, [address] [place] [address] Demar Perdomo MD, [place] 22 [facility], [address] [place] [address] [email or web address] documented as of this encounter Results * [...] suggests this is definitelyold. POS - [id number] us Asa Johnson DO IMG XR SPINE Final Result documented in this encounter Visit Diagnoses Diagnosis Chronic low back pain, unspecified back pain laterality, unspecified whether sciatica present- Primary Chronic low back pain, unspecified back pain laterality, unspecified whether sciatica present documented in this encounter Care Teams Pyrotechnist Relationship Specialty Start Date End Date Asa Johnson DO PCP - General 03/09/17 03/28/24 Asa Johnson DO [address] [place] [address] PCP - General Internal Medicine 03/29/24 Asa Johnson DO Historical LMR Provider 12/19/16 Lexie Tomlinson NP [address] [place] [address] Historical LMR Provider 12/19/16 2 Miladis Mckeon NP 21 [place] [address] [email or web address] Historical LMR Provider 12/19/16 2 Andre Dias MD [address] [place] [address] [email or web address] Historical LMR Provider 12/19/16 Alejandro Goldberg MD [address] [place] [address] Historical LMR Provider 12/19/16 2 Asa Johnson DO [address] [place] [address] [place] [address] [email or web address] Insurance Assigned Provider 04/07/18 07/23/22 documented as of this encounter Additional Source Comments The information contained in this document represents components of the legal health record. It is not the complete legal health record.[facility]
--- OUTSIDE RECORDS SUMMARY | 2024-11-14 18:57 | XMS_ITS | Encounter Summary ---
Author Organization [facility], Address [address] [place] [address] Phone Care Team Providers Care Strike Planning Applications Name Role Phone Asa Johnson DO Primary Care Provider [phone] Encounter Details Date Type Department Care Team (Late st Contact Info) Description 07/15/2022 Documentation Only [facility], - [place] [address] [facility] [address] [place] [address] Juan R Presley MD Social History Tobacco [...] on filedocumented in this encounter Care Teams Strike Planning Applications Relationship Specialty Start Date End Date Asa Johnson DO 6 [facility] [place] [phone] PCP - General 01/08/19 documented as of this encounter
--- OUTSIDE RECORDS SUMMARY | 2024-11-14 18:57 | XMS_ITS | Patient Health Record ---
Author Organization [facility] Address [address] [place] [address] Care Team Providers Care Criminal Defense Attorney Name Role Phone Asa Johnson Primary Care Provider Demar Lockhart [phone] Allergies Allergen (clinical drug ingredient) Drug/Non Drug [...] Status Risk Notes Problem Colon cancer screening (907178924) Colon cancer screening (Z12.11) Active confirmed Problem Diarrhea (77955666) Diarrhea (R19.7) Active confirmed Problem Preprocedural examination (421588057713774) Preprocedural examination (Z01.818) Active confirmed Plan Of Treatment Pending Test Test Name Order Date Pathology 04/04/2022 Future Test Test Name Order Date COLONOSCOPY 02/11/2022 Insurance Providers Payer Name Payer Address Payer Phone Subscriber Number Group Number Insured Name Patient Relationship to Insured Coverage Start Date Coverage End Date [facility] [address] [place] [address] [id number] RJ MITCHELL Self - patient is the insured Medical (General) History Medical History History ICD Code Chronic kidney disease stage 4 --Dr. Orlando dennis Hypertension Anemia Hypothyroidism Hypercholesterolemia Asthma Anxiety Migraines Gout Depresssion Seasonal allergies Diarrhea--Negative colonosco py with me in 2009. There was no IBD or miroscopic colitis. Biopsies from the TI were normal. Negative labs for celiac disease. Denies [place],DM,CVA Surgical History Surgery Date(Month/Year) Ganglion cyst right wrist One ovary removed due to ovarian cyst
--- OUTSIDE RECORDS SUMMARY | 2024-11-14 18:57 | XMS_ITS | Encounter Summary ---
Author Organization [facility] Address [address] [place] [address] Phone Care Team Providers Care Interior Decorator Name Role Phone LongAsa guillory DO Unavailable Lexie Tomlinson SLAUGHTERER RELIGIOUS RITUAL Unavailable [phone] Miladis Mckeon SLAUGHTERER RELIGIOUS RITUAL Unavailable [phone] Andre Dias MD Unavailable [phone] Alejandro Goldberg MD Unavailable [phone] Bigda, Asa A DO Primary Care Provider [phone] Bigda, Asa A DO Unavailable Bigda, Asa A DO Unavailable Bigda, Asa A DO Primary Care Provider [phone] Encounter Details Date Type Department Care Team (Latest Contact Info) Description 07/20/2017 Transcribe Orders [facility] [address] [place] [address] Juan R Presley MD 51 [facility], [address] [place], [place] [id number] [email or web address] Nephrogenous proteinuria (Primary Dx); Chronic kidney disease, [...] Description 08/01/2025 9:00 AM EDT Office Visit [facility] [address] [place] [address] 3rd Floor, [address] [place] [address] Demar Perdomo MD, MS 22 [facility], [address] [place] [address] [email or web address] documented as of this encounter Results * (ABNORMAL) Total protein creatinine ratio, random urine (07/20/2017 11:57 AM EDT) URINE TOTAL PROTEIN 49.4 mg/dL [facility] URINE CREATININE 164 mg/dL [facility] URINE TP CRE RATIO 0.30(H) 0 - 0.19 [facility] Urine (Urine) 07/20/2017 11: 57 AM EDT 07/20/2017 12:03 PM EDT us Juan R Presley MD URINE ORDERABLES Final Result [facility] [address] [place] [address] * (ABNORMAL) CBC and differential (07/20/2017 11:57 AM EDT) WBC 9.89 3.40 - 11.20 K/uL [facility] RBC 4.62 3.80 - 4.80 M/uL [facility] HGB 13.8 12.0 - 15.0 g/dL [facility] HCT 40.3 36.0 - 46.0 % [facility] PLT 257 130 - 400 K/uL [facility] MCV 87.2 79.0 - 98.0 [facility] MCH 29.9 27.0 - 34.8 pg [facility] MCHC 34.2 31.5 - 36.0 g/dL [facility] RDW 12.0 10.8 - 14.6 % [facility] MPV 11.8 9.4 - 12.4 [facility] NRBC 0.00 /100 WBCs [facility] ABSOLUTE NRBC 0.00 K/uL [facility] DIFF METHOD Auto [facility] NEUTS 62.8 45.30 - 77.70 % [facility] LYMPHS 23.1 12.30 - 39.70 % [facility] MONOS 7.6 4.10 - 12.80 % [facility] EOS 5.2 0 - 7.2 % [facility] BASOS 0.7 0 - 2.80 % [facility] Granulocytes, immature (%) 0.6 0.0 - 0.9 % [facility] ABSOLUTE NEUTS 6.22 1.40 - 7.70 K/uL [facility] ABSOLUTE LYMPHS 2.28 0.60 - 3.20 K/uL [facility] ABSOLUTE MONOS 0.75(H) 0.11 - 0.59 K/uL [facility] ABSOLUTE EOS 0.51(H) 0.01 - 0.50 K/uL [facility] ABSOLUTE BASOS 0.07 0.00 - 0.08 K/uL [facility] Granulocytes, immature 0.06(H) 0.00 - 0.05 K/uL [facility] Blood 07/20/2017 11:5 7 AM EDT 07/20/2017 12:02 PM EDT us Juan R Presley MD LAB BLOOD ORDERABLES Final Re sult [facility] [address] [place], [place] [phone] * (ABNORMAL) Albumin (07/20/2017 11:57 AM EDT) ALBUMIN 3.5(L) 3.9 - 4.8 g/dL [facility] Blood 07/20/2017 11:5 7 AM EDT 07/20/2017 12:02 PM EDT us Juan R Presley MD LAB BLOOD ORDERABLES Final Re sult Performing Organization Address [facility]/ZIP Co de Phone Number [address] [address] * Magnesium (07/20/2017 11:57 AM EDT) MAGNESIUM 1.8 1.6 - 2.6 mg/dL [facility] Blood 07/20/2017 11:5 7 AM EDT 07/20/2017 12:02 PM EDT us Juan R Presley MD LAB BLOOD ORDERABLES Final Re sult Performing Organization Address [facility]/ZIP Co de Phone Number [address] [address] * Phosphorus (07/20/2017 11:57 AM EDT) PHOSPHORUS 2.9 2.7 - 4.5 mg/dL [facility] Blood 07/20/2017 11:5 7 AM EDT 07/20/2017 12:02 PM EDT us Juan R Presley MD LAB BLOOD ORDERABLES Final Re sult Performing Organization Address [facility] Co de Phone Number [address] [address] * (ABNORMAL) Basic metabolic panel (07/20/2017 11:57 AM EDT) SODIUM 142 133 - 146 mmol/L [facility] CHLORIDE 106 96 - 108 mmol/L [facility] POTASSIUM 3.7 3.3 - 5.1 mmol/L [facility] CO2 19(L) 21 - 35 mmol/L [facility] BUN 41(H) 6 - 19 mg/dL [facility] CREATININE 2.50(H) 0.5 - 1.5 mg/dL [facility] GLUCOSE 74 70 - 99 mg/dL [facility] CALCIUM 9.3 8.4 - 10.3 mg/dL [facility] EGFR 23(L) >59 mL/min/1.7 3m2 [facility] Comment:If patient is black, multiply result by 1.159. The eGFR calculation has changed from the MDRD equation to the CKD-EPI equation as of May 09, 2017. ANION GAP 21(H) 10 - 20 mmol/L [facility] Blood 07/20/2017 11:5 7 AM EDT 07/20/2017 12:02 PM EDT us Juan R Presley MD LAB BLOOD ORDERABLES Final Re sult Performing Organization Address City/[facility]/ZIP Co de Phone Number [address] [address] * (ABNORMAL) Parathyroid hormone (PTH) (07/20/2017 11:57 AM EDT) PARATHYROID HORMONE 80(H) 15 - 65 pg/mL [facility] Blood 07/20/2017 11:5 7 AM EDT 07/20/2017 12:02 PM EDT Juan R Presley MD LAB BLOOD ORDERABLES Final Re sult Performing Organization Address City/[facility]/ZIP Co de Phone Number [address] [address] documented in this encounter Visit Diagnoses Diagnosis Nephrogenous proteinuria- Primary Chronic kidney disease, stage IV (severe) Chronic kidney disease, Stage IV (severe) 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,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) Anemia in end-stage renal disease Anemia in chronic kidney disease documented in this encounter Care Teams Interior Decorator Relationship Specialty Start Date End Date Asa Johnson DO [email or web address] PCP - General 03/09/17 03/28/24 Asa Johnson DO [address] [place] [address] PCP - General Internal Medicine 03/29/24 Asa Johnson DO Historical LMR Provider 12/19/16 Lexie Tomlinson SLAUGHTERER RELIGIOUS RITUAL [address] [place] [phone] Historical LMR Provider 12/19/16 2 Miladis Mckeon NP 21 [place] [address] [email or web address] Historical LMR Provider 12/19/16 2 Andre Dias MD [address] [place] [address] Historical LMR Provider 12/19/16 Alejandro Goldberg MD [address] [place] [address] Historical LMR Provider 12/19/16 2 Asa Johnson DO 179 [place] [address] Insurance Assigned Provider 12/09/17 03/10/18 Asa Johnson DO 179 [place] [address] Insurance Assigned Provider 04/07/18 07/23/22 documented as of this encounter Additional Source Comments The information contained in this document represents components of the legal health record. It is not the complete legal health record.[facility]
--- OUTSIDE RECORDS SUMMARY | 2024-11-14 18:57 | XMS_ITS | Encounter Summary ---
Author Organization [facility], Address [address] [place] [address] Phone Care Team Providers Care Generalist Name Role Phone Asa Johnson DO Primary Care Provider [phone] Encounter Details Date Type Department Care Team (Late st Contact Info) Description 02/06/2023 Documentation Only [facility], - [address] [facility] [address] [place] [phone] Juan R Presley MD Social History Tobacco [...] on filedocumented in this encounter Care Teams Generalist Relationship Specialty Start Date End Date Asa Johnson DO 6 [facility] [place] [phone] PCP - General 01/08/19 documented as of this encounter
--- OUTSIDE RECORDS SUMMARY | 2024-11-14 18:57 | XMS_ITS | Encounter Summary ---
Author Organization [facility] Address [address] [place] [address] Phone Care Team Providers Care Die Stamping Press Operator Name Role Phone Asa Johnson DO Unavailable Lexie Tomlinson STUDIO SET UP WORKER Unavailable [phone] Miladis Mckeon STUDIO SET UP WORKER Unavailable Andre Dias MD Unavailable [phone] Alejandro Goldberg MD Unavailable [phone] Asa Johnson DO Primary Care Provider [phone] Asa Johnson DO Unavailable Alex, Asa Hernández DO Primary Care Provider [phone] Encounter Details Date Type Department Care Team (Late st Contact Info) Description 03/22/2018 Ancillary Orders [facility],Outside Imaging [address] [place] [address] System, Provider Not In, PhD [address] [address] Social History Tobacco Use Types Packs/Day Years [...] Description 08/01/2025 9:00 AM EDT Office Visit [facility] 22 [facility] 3rd Floor, [address] [place] [address] Demar Perdomo MD, MS [address] [facility], [address] [place] [address] [email or web address] documented as of this encounter Results * [...] on filedocumented in this encounter Care Teams Die Stamping Press Operator Relationship Specialty Start Date End Date Asa Johnson DO PCP - General 03/09/17 03/28/24 Asa Johnson DO 179 [facility] [place] [address] [place] [address] PCP - General Internal Medicine 03/29/24 Asa Johnson DO Historical LMR Provider 12/19/16 Lexie Tomlinson NP [address] [place] [address] Historical LMR Provider 12/19/16 2 Miladis Mckeon NP 21 [place] [address] [email or web address] Historical LMR Provider 12/19/16 2 Andre Dias MD [address] [address] [email or web address] Historical LMR Provider 12/19/16 Alejandro Goldberg MD [address] [place] [address] Historical LMR Provider 12/19/16 2 Asa Johnson DO [address] [place] [address] [email or web address] Insurance Assigned Provider 04/07/18 07/23/22 documented as of this encounter Additional Source Comments The information contained in this document represents components of the legal health record. It is not the complete legal health record.[facility]
--- OUTSIDE RECORDS SUMMARY | 2024-11-14 18:57 | XMS_ITS | Clinical Summary ---
Author Organization [facility], Address [address] [place] [address] Phone Care Team Providers Care Brick Catcher Name Role Phone Asa Johnson Primary Care Provider [phone] Allergies Active Allergy Reactions Criticality Noted Date [...] 9, 01/09/2009 Insurance Medicaid [place] Care Teams Brick Catcher Relationship Specialty Start Date End Date Asa Johnson DO [address] [place] [address] PCP - General 01/08/19
--- OUTSIDE RECORDS SUMMARY | 2024-11-14 18:57 | XMS_ITS | Encounter Summary ---
Author Organization [facility], Address [address] [place] [address] Phone Care Team Providers Care Business Analyst Manager Name Role Phone Asa Johnson DO Primary Care Provider [phone] Encounter Details Date Type Department Care Team (Late st Contact Info) Description 02/14/2020 Orders Only [facility] - [facility] [address] [facility] [address] [place] [address] Juan R Presley MD Chronic kidney disease [...] (HCC) documented in this encounter Care Teams Business Analyst Manager Relationship Specialty Start Date End Date Asa Johnson DO [address] [place] [address] PCP - General 01/08/19 documented as of this encounter
--- OUTSIDE RECORDS SUMMARY | 2024-11-14 18:57 | XMS_ITS | Patient Health Record ---
Author Organization [facility] Address [address] [facility] [address] Care Team Providers Care Calender Roll Operator Name Role Phone Asa Johnson MD Primary Care Provider Unavailabl e Black, Edna Unavailable [phone] Allergies Allergen (clinical drug ingredient) Drug/Non Drug [...] Risk Notes Problem Closed fracture of calcaneus (25438168) Stress Fx Calcaneus (825.0) Active confirmed Problem Plantar fasciitis (843357393) Plantar Fasciitis (728.71) Active confirmed Problem Gout (64023208) Gout (274.9) Active confirmed Problem Myositis (45063157) Myositis (729.1) Active confirmed Problem Pain in limb (28248102) Pain in Limb (729.5) Active confirmed Plan Of Treatment Pending Test Test Name Order Date Bone scan 12/30/2010 *Uric Acid, Serum 05/02/2011 *Sedimentation Rate-Westergren 2 X ray : Foot, left 3V 11/22/2010 X ray : Foot, left 3V 12/29/2010 [id number] TENDON SHEATH/LIGAMENT 0 03/25/2011 Insurance Providers Payer Name Payer Address Payer Phone Subscriber Number Group Number Insured Name Patient Relationship to Insured Coverage Start Date Coverage End Date Blue Benefits [address] [address] [place] [address] [id number] Shannon Zimmer Self - patient is the insured Medical (General) History Medical History History ICD Code neuropathy kidney disease high blood pressure headaches/migraines back, hip, knee pain asthma Anxiety disorder Surgical History Surgery Date(Month/Year) cyst removal 1985
--- OUTSIDE RECORDS SUMMARY | 2024-11-14 18:57 | XMS_ITS | Encounter Summary ---
Author Organization [facility], Address [address] [place] [address] Phone Care Team Providers Care Site Supervising Technical Operator Name Role Phone Asa Johnson DO Primary Care Provider [phone] Encounter Details Date Type Department Care Team (Late st Contact Info) Description 02/06/2023 Documentation Only [facility], - [place] [address] [facility] [address] [place] [phone] Juan R Presley MD Social History Tobacco [...] on filedocumented in this encounter Care Teams Site Supervising Technical Operator Relationship Specialty Start Date End Date Asa Johnson DO [address] [facility] [place] [phone] PCP - General 01/08/19 documented as of this encounter
--- OUTSIDE RECORDS SUMMARY | 2024-11-14 18:57 | XMS_ITS | Encounter Summary ---
Author Organization [facility], Address [address] [place] [address] Phone Care Team Providers Care Software Consultant Name Role Phone Asa Johnson DO Primary Care Provider [phone] Reason for Visit * Reason Comments Med Refill Encounter Details Date Type Department Care Team (Late st Contact Info) Description 02/04/2021 Refill [facility] - [facility] [address] [facility] 3 [place] [id number] Juan R Presley MD Social History Tobacco [...] on filedocumented in this encounter Care Teams Software Consultant Relationship Specialty Start Date End Date Asa Johnson DO [address] [place] [id number] PCP - General 01/08/19 documented as of this encounter
--- OUTSIDE RECORDS SUMMARY | 2024-11-14 18:57 | XMS_ITS | Encounter Summary ---
Author Organization [facility], Address [address] [place] [address] Phone Care Team Providers Care Main Entree Cook And Cashier Name Role Phone Asa Johnson DO Primary Care Provider [phone] Encounter Details Date Type Department Care Team (Late st Contact Info) Description 08/08/2022 Documentation Only [facility], - [facility] [address] [facility] [address] [place] [phone] Asa Johnson DO [address] [place] [address] Social History Tobacco Use Types [...] on filedocumented in this encounter Care Teams Main Entree Cook And Cashier Relationship Specialty Start Date End Date Asa Johnson DO [address] [place] [address] PCP - General 01/08/19 documented as of this encounter
--- OUTSIDE RECORDS SUMMARY | 2024-11-14 18:57 | XMS_ITS | Encounter Summary ---
Author Organization [facility] Address [address] [address] Phone Care Team Providers Care Rigger Helper Name Role Phone Alex Asa Hernández DO Unavailable Andre Dias MD Unavailable [phone] Asa Johnson DO Primary Care Provider [phone] Asa Johnson DO Primary Care Provider [phone] Reason for Visit * Reason Comments Medication Refill Encounter Details Date Type Department Care Team (Late st Contact Info) Description [facility] [address] [place] [address] 3rd Floor, [address] [place] [address] Demar Perdomo MD, [place] 22 [facility], [address] [address] [email or web address] Medication Refill [...] Upcoming Encounters Date Type Department Care Team ([facility] st Contact Info) Description 08/01/2025 9:00 AM EDT Office Visit [facility] [address] [place] [address] 3rd Floor, [address] [place] [address] Demar Perdomo MD, MS 22 [facility], [address] [place] [address] [email or web address] documented as of this encounter Visit Diagnoses Diagnosis Medication refill- Primary Issue of repeat prescriptions documented in this encounter Care Teams Rigger Helper Relationship Specialty Start Date End Date Asa Johnson DO PCP - General 03/09/17 03/28/24 Asa Johnson DO [address] [place] [address] [address] [place] [address] PCP - General Internal Medicine 03/29/24 Asa Johnson DO Historical LMR Provider 12/19/16 Andre Dias MD 22 [facility], [address] [address] [email or web address] Historical LMR Provider 12/19/16 documented as of this encounter Additional Source Comments The information contained in this document represents components of the legal health record. It is not the complete legal health record.[facility]
== END 2024-11-14 16:46 | disposition home or self-care (01) ==
LOC: HO.HKA 16:29
PROVIDERS: PCP Internal Medicine; Visit Provider Internal Medicine Hypertension Specialist
DX: N18.9 Chronic kidney disease, unspecified (principal)
CPT/HCPCS: 99214

== ENCOUNTER 2025-02-12 09:42 | Outpatient (REF) | payer BC, SELFPAY ==
[2025-02-12 10:30] LABS: Hematocrit 38.8 % (37.0-47.0); Hemoglobin 12.9 g/dl (12.0-16.0); Mean Corpuscular HGB Conc 33.2 g/dl (31.0-35.0); Mean Corpuscular Hemoglobin 29.7 pg (27.0-33.0); Mean Corpuscular Volume 89.2 fL (80.0-98.0); NRBC Abs Auto 0.000 X10*3/uL (0.0-0.012); NRBC Pct Auto 0.0 /100WBC (0.0-0.2); Platelet Count 261 X10*3/uL (160-400); Red Blood Count 4.35 X10*6/uL (4.20-5.50); White Blood Count 10.6 X10*3/uL (4.8-10.8)
[2025-02-12 11:39] LABS: Anion Gap 11 (12-20); Blood Urea Nitrogen 59 mg/dL (9-16); Calcium 8.9 mg/dL (8.4-10.2); Carbon Dioxide 18 mmol/L (22-29); Chloride 114 mmol/L (96-108); Estimated Glomerular Filt Rate 10; Potassium 3.8 mmol/L (3.3-5.1); Sodium 139 mmol/L (135-145)
== END 2025-02-12 09:43 ==
LOC: HO.LAB 09:42
PROVIDERS: PCP Internal Medicine; Visit Provider Internal Medicine Hypertension Specialist
DX: N18.9 Chronic kidney disease, unspecified (principal)
CPT/HCPCS: 36415; 80048; 85027

== ENCOUNTER 2025-02-13 15:58 | Outpatient (AMB) | payer BC, SELFPAY ==
[2025-02-13 16:01] VITALS: BP 122/82; PULSE 71; O2SAT 99; BMI 34.0
--- NOTE | 2025-02-13 16:01 | HO.NEPHOV_ITS ---
Vital Signs 02/13/25 16:01 Height 5 ft 3 in Weight 192 lb BMI 34.0 BP 122/82 Blood Pressure Location Lt brachial Position Sitting Pulse 71 Pulse Source Pulse Oximeter Pulse Oximetry (%) 99 Oxygen Delivery Method Room Air Intake Visit Reasons: 3mon f/u w/labs Continuous W[employer] Pipe Mill Supervisor Required: No Accompanied by: Self / Same As Patient Allergies hydrocodone (From VICODIN) Allergy (Unknown, Verified 02/13/25 16:03) VOMITTING latex (Latex) Allergy (Unknown, Verified 02/13/25 16:03) HANDS GET ITCHY AND PUFFY Medication List - Last Reconciled 02/13/25 by Ernesto Mar MD albuterol sulfate mg inhalation Q6H PRN albuterol sulfate 90 mcg/actuation 2 puffs inhalation Q4H PRN allopurinol 100 mg PO DAILY aripiprazole 2 tabs PO DAILY aripiprazole 5 mg PO DAILY cetirizine (Zyrtec) 10 mg PO DAILY PRN zcnrimvoyqk-eiykkvfnc-ohpdecqk 200-62.5-25 mcg (Trelegy Ellipta) 1 puff inhalation DAILY furosemide 1 tab PO 2XW lorazepam 0.5 mg PO PRN propranolol 20 mg PO BID simvastatin 1 tab PO DAILY sodium bicarbonate 650 mg PO DAILY PRN sumatriptan succinate 100 mg PO DAILY PRN HPI Comments Details: Shannon is a pleasant 49-year-old woman with CKD. She has had CKD since the age of 21. She was previously seen by Dr. Haq Recently serum creatinine was 3.4 with a EGFR of 14 mL/minute and hence this referral. 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 Here for follow-up of chronic kidney disease and review of recent laboratory results. Her creatinine, previously stable around 3.0-3.3 mg/dL, increased to 4.7 mg/dL in October, with a BUN of 59 mg/dL. The patient's potassium level was normal. She denies NSAID use but admits to possible inadequate fluid intake. She has no urinary symptoms, nausea, or vomiting, and her appetite is okay. She reports a weight loss of about 6 pounds in the last 6 months and has her usual amount of leg swelling. The patient is being evaluated for a kidney transplant and saw the transplant team at [facility] in December, with no changes made to her care at that time. She is awaiting a blood typing test kit. Her migraines are reportedly well-controlled with topiramate and sumatriptan as needed. The patient reported an episode of racing heart and chest pain that occurred yesterday while working, which lasted approximately 20 minutes. She also experienced palpitations, and symptoms resolved after taking lorazepam. She notes significant life stressors, including her job, financial difficulties, and her mother's recent stroke. Results - Labs: Recent labs show a serum creatinine of 4.7 mg/dL, which is an increase from her baseline of 3.0-3.3 mg/dL. - BUN was 59 mg/dL. - Potassium was normal. [facility] Medical History (Updated 07/12/24 @ 14:27 by Ernesto Mar MD) Plantar fasciitis Encounter for prophylactic removal of ovary Hx of bleeding following renal biopsy Ganglion of right wrist Seasonal allergies Depression Gout Migraines Anxiety Asthma HLD (hyperlipidemia) Hypothyroid Anemia HTN (hypertension) CKD (chronic kidney disease) Social History Patient Tobacco Use Status: Never used Tobacco Physical Exam Exam Exam: Physical Exam General: Awake. Comfortable. HENT: Neck supple. Mucosa moist. Pulmonary: Lungs aeration equal. No rales. Cardiology: Heart S1-S2 heard. No gallop. Palpitations noted. Abdomen: Soft. Non tender. Bowel sounds normal. Neurologic: No involuntary movements. No myoclonus. Extremities: No edema. No rash. Swelling in legs noted, usually the same as before. Vital Signs: Last Vital Signs Pulse 71 02/13/25 16:01 BP 122/82 02/13/25 16:01 Pulse Ox 99 02/13/25 16:01 Oxygen Delivery Method Room Air 02/13/25 16:01 BMI result Body Mass Index 34.0 Comfortable Neck supple no JVD. Lungs entry equal no rales. Heart S1-S2 heard no gallop or rub. Abdomen soft nontender. Neuro alert awake oriented. No asterixis. Extremities trace edema. Results Reviewed Nephrology Results: Hgb, (12.0-16.0) 12.9 g/dl 02/12/25 WBC, (4.8-10.8) 10.6 X10*3/uL 02/12/25 Plt Count, (160-400) 261 X10*3/uL 02/12/25 Sodium, (135-145) 139 mmol/L 02/12/25 Potassium, (3.3-5.1) 3.8 mmol/L 02/12/25 Chloride, (96-108) 114 mmol/L H 02/12/25 Carbon Dioxide, (22-29) 18 mmol/L L 02/12/25 BUN, (9-16) 59 mg/dL H 02/12/25 Creatinine, (0.5-1.4) 4.76 mg/dL H* 02/12/25 Calcium, (8.4-10.2) 8.9 mg/dL 02/12/25 Phosphorus, (2.7-4.5) 2.9 mg/dL 11/12/24 PTH Intact, (8.7-77.1) 127.3 pg/mL H 11/12/24 Urine Protein, (Neg-Trace) 100 (2+) mg/dL H 11/12/24 Renal US 07/30/24 Assessment & Plan Assessment & Plan (1) CKD (chronic kidney disease): Comment: Stage 4 Code(s): N18.9 - Chronic kidney disease, unspecified Category: Medical Plan Middle-aged woman with CKD due to FSGS by biopsy 1. Chronic Kidney Disease - The patient's creatinine has significantly increased to 4.7 mg/dL from a stable baseline of 3.0-3.3 mg/dL. - Dehydration is the most likely cause of this acute decline in kidney function. - The patient will increase fluid intake. - Repeat blood work will be obtained in one month. - A follow-up visit is scheduled for two months, with instructions to call sooner if labs are abnormal. - The patient will continue with the kidney transplant evaluation process at [facility]. At present no overt signs or symptoms of uremia. Or fluid overload. 2. Hyperuricemia - Due to the elevated creatinine of 4.6, the allopurinol dose will be reduced from twice a day to once a day to prevent accumulation. 3. Metabolic Acidosis - The patient had stopped taking sodium bicarbonate, and her acid level is slightly high. - Sodium bicarbonate will be restarted at a frequency of once daily. 4.. Hemoglobin is stable at 12.9. No indication for Epogen. Orders: Orders Basic Metabolic Panel 4 Weeks N18.9 - Chronic kidney disease, unspecified Medications: Changed From sodium bicarbonate 650 mg PO DAILY PRN 90 tabs 1RF stomach upset To sodium bicarbonate 650 mg PO DAILY 90 tabs 1RF stomach upset Coding Level of Care Code Est Pt Level 4 (72145) Diagnoses CKD (chronic kidney disease) N18.9
--- OUTSIDE RECORDS SUMMARY | 2025-02-13 23:13 | XMS_ITS | Patient Health Record ---
Author Organization [facility] Address [address] [place] [address] Care Team Providers Care Professor Criminal Justice Name Role Phone Asa Johnson MD Primary Care Provider Unavailabl e Black, Edna Unavailable [phone] Allergies Allergen (clinical drug ingredient) Drug/Non Drug [...] Risk Notes Problem Closed fracture of calcaneus (39054800) Stress Fx Calcaneus (825.0) Active confirmed Problem Plantar fasciitis (369212811) Plantar Fasciitis (728.71) Active confirmed Problem Gout (67621892) Gout (274.9) Active confirmed Problem Myositis (15748074) Myositis (729.1) Active confirmed Problem Pain in limb (53914351) Pain in Limb (729.5) Active confirmed Plan Of Treatment Pending Test Test Name Order Date Bone scan 12/30/2010 *Uric Acid, Serum 05/02/2011 *Sedimentation Rate-Westergren 2 X ray : Foot, left 3V 11/22/2010 X ray : Foot, left 3V 12/29/2010 [id number] TENDON SHEATH/LIGAMENT 0 03/25/2011 Insurance Providers Payer Name Payer Address Payer Phone Subscriber Number Group Number Insured Name Patient Relationship to Insured Coverage Start Date Coverage End Date Blue Benefits [address] [address] [place] [address] [id number] Shannon Zimmer Self - patient is the insured Medical (General) History Medical History History ICD Code neuropathy kidney disease high blood pressure headaches/migraines back, hip, knee pain asthma Anxiety disorder Surgical History Surgery Date(Month/Year) cyst removal 1985
--- OUTSIDE RECORDS SUMMARY | 2025-02-13 23:13 | XMS_ITS | Encounter Summary ---
Author Organization [facility] Address [address] [facility] [address] [place] [address] Phone Care Team Providers Care Senior Director Insight Name Role Phone Asa Johnson DO Unavailable Andre Dias MD Unavailable [phone] Asa Johnson DO Primary Care Provider [phone] Asa Johnson DO Primary Care Provider [phone] Reason for Visit * Reason Onset Date Comments Medication Refill 08/16/2023 Encounter Details Date Type Department Care Team (Late st Contact Info) Description 08/16/2023 Refill [facility] [address] [facility] 3rd Floor, [address] [place] [address] Isabelle Guaman MA 22 [place] [address] Medication Refill Social History Tobacco Use Types [...] Upcoming Encounters Date Type Department Care Team ([facility] st Contact Info) Description 03/28/2025 10:00 AM EST Office Visit [facility] Pulmonary, Allergy and Critical Care Medicine [address] [place] [address] Eyad Ramos MD [address] [place] [address] [email or web address] 08/01/2025 9:00 AM EDT Office Visit [facility] [address] [place] [address] 3rd Floor, [address] [place] [address] Demar Perdomo MD, MS 22 [facility], [address] [place] [address] [email or web address] documented as of this encounter Visit Diagnoses Diagnosis Moderate persistent asthma without complication documented in this encounter Care Teams Senior Director Insight Relationship Specialty Start Date End Date Asa Johnson DO PCP - General 03/09/17 03/28/24 Asa Johnson DO [address] [facility] [place] [address] PCP - General Internal Medicine 03/29/24 Asa Johnson DO [email or web address] Historical LMR Provider 12/19/16 Andre Dias MD [address] [place] [address], [place] [address] [email or web address] Historical LMR Provider 12/19/16 documented as of this encounter Additional Source Comments The information contained in this document represents components of the legal health record. It is not the complete legal health record.[facility]
--- OUTSIDE RECORDS SUMMARY | 2025-02-13 23:13 | XMS_ITS | Encounter Summary ---
Author Organization [facility] Address [address] [address] Phone Care Team Providers Care Residential Treatment Counselor Name Role Phone Asa Johnson DO Unavailable Andre Dias MD Unavailable [phone] Asa Johnson DO Primary Care Provider [phone] Encounter Details Date Type Department Care Team (Late st Contact Info) Description 01/09/2025 Telephone [facility] [address] [facility] 3rd Floor, [address] [place] [address] Demar Perdomo MD, MS 22 [facility], [address] [phone] [email or web address] Social History Tobacco Use Types Packs/Day Years [...] as of this encounter Progress Notes * AjffeJaz [place] - 01/09/2025 1:50 PM EST Pt is upset that she is unable to have her RX filled until Dr Perdomo is in on Monday. She wants to know who will pay for her hospital bill when she has to go to the hospital because she cannot breath, I informed her that we are not responsible for that and she can call her PCP for a temporary supply until the physician is able to come back in. The patient hung up. documented in this encounter Plan of Treatment Upcoming Encounters Date Type Department Care Team (Late st Contact Info) Description 03/28/2025 10:00 AM EST Office Visit [facility], [facility]ergy and Critical Care Medicine [address] [place] [address] [place] [address] Eyad Ramos MD [address] [place] [address] 08/01/2025 9:00 AM EDT Office Visit [facility] [address] 3rd [facility], [address] [place] [address] Demar Perdomo MD, MS [address] [place] [address], [address] [address] documented as of this encounter Visit Diagnoses Not on filedocumented in this encounter Care Teams Residential Treatment Counselor Relationship Specialty Start Date End Date Asa Johnson DO [address] [place] [address] [place] [address] PCP - General Internal Medicine 03/29/24 Asa Johnson DO [email or web address] Historical LMR Provider 12/19/16 Andre Dias MD [address] [place] [address] [email or web address] Historical LMR Provider 12/19/16 documented as of this encounter Additional Source Comments The information contained in this document represents components of the legal health record. It is not the complete legal health record.[facility]
--- OUTSIDE RECORDS SUMMARY | 2025-02-13 23:13 | XMS_ITS | Encounter Summary ---
Author Organization [facility] Address [address] [place] [address] Phone Care Team Providers Care Manager Privacy Name Role Phone LongAsa guillory DO Unavailable Lexie Tomlinson ENGINEERING SECRETARY Unavailable [phone] Miladis Mckeon ENGINEERING SECRETARY Unavailable [phone] Andre Dias MD Unavailable [phone] Alejandro Goldberg MD Unavailable [phone] Alex, Asa Edgar DO Primary Care Provider [phone] Bigda, Asa Hernández DO Unavailable Bigda, Asa Edgar DO Primary Care Provider [phone] Encounter Details Date Type Department Care Team (Latest Contact Info) Description 02/06/2019 Transcribe Orders [address] [address] Juan R Presley MD 51 [facility], [address] [place], [place] [id number] [email or web address] Nephrogenous proteinuria (Primary Dx) [...] Description 03/28/2025 10:00 AM EST Office Visit [facility] Pulmonary, Allergy and Critical Care Medicine [address] [facility] [place] [address] [place] [address] Eyad Ramos MD 10 [facility] 2nd [place] [address] [email or web address] 08/01/2025 9:00 AM EDT Office Visit [facility] [address] [place] [address] 3rd Floor, [address] [place] [id number] Demar Perdomo MD, [place] 22 [facility], [address] [address] [email or web address] documented as of this encounter Results * TOTAL PROTEIN CREATININE RATIO, RANDOM URINE (08/29/2019 7:39 AM EDT) Pathologist [facility] URINE TOTAL PROTEIN 5.3 mg/dL [facility] URINE CREATININE 60 mg/dL [facility] URINE TP CRE RATIO 0.09 0 - 0.19 [facility] Urine (Urine) 08/29/2019 7:3 9 AM EDT 08/29/2019 7:44 AM EDT us Juan R Presley MD LAB URINE ORDERABLES Final Re sult [facility] [address] [place] [address] * (ABNORMAL) CBC and differential (08/29/2019 7:39 AM EDT) WBC 9.86 4.00 - 11.00 K/uL [facility] Comment:Note Reference Range updates to all CBC and Differential results. RBC 4.32 3.72 - 5.30 M/uL [facility] HGB 12.9 10.6 - 15.5 g/dL [facility] Comment:Note updated Referen ce Ranges for all CBC and Differential results. HCT 39.4 32.0 - 45.0 % [facility] PLT 219 140 - 430 K/uL [facility] MCV 91.2 78.0 - 97.0 fL [facility] MCH 29.9 25.0 - 33.0 pg [facility] MCHC 32.7 32.0 - 36.0 g/dL [facility] RDW 12.9 11.0 - 16.0 % [facility] MPV 11.9 8.4 - 12.8 fl [facility] NRBC 0.00 0 /100 WBCs [facility] ABSOLUTE NRBC 0.00 0 K/uL [facility] DIFF METHOD Auto [facility] NEUTS 65.8 43.0 - 75.0 % [facility] LYMPHS 22.2 18.2 - 47.4 % [facility] MONOS 8.0 4.00 - 11.00 % [facility] EOS 2.5 0.0 - 8.0 % [facility] BASOS 0.5 0.0 - 2.0 % [facility] Granulocytes, immature (%) 1.0(H) 0.0 - 0.9 % [facility] ABSOLUTE NEUTS 6.48 1.80 - 7.70 K/uL [facility] ABSOLUTE LYMPHS 2.19 1.00 - 3.10 K/uL [facility] ABSOLUTE MONOS 0.79 0.20 - 0.80 K/uL [facility] ABSOLUTE EOS 0.25 0.00 - 0.80 K/uL [facility] ABSOLUTE BASOS 0.05 0.00 - 0.09 K/uL [facility] Granulocytes, immature 0.10(H) 0.00 - 0.05 K/uL [facility] Blood 08/29/2019 7:39 AM EDT 08/29/2019 7:44 AM EDT us Juan R Presley MD LAB BLOOD BKR ORDERABLES Fiorella brown Result [address] [address] * (ABNORMAL) Albumin (08/29/2019 7:39 AM EDT) ALBUMIN 3.7(L) 3.9 - 4.8 g/dL [facility] Blood 08/29/2019 7:39 AM EDT 08/29/2019 7:44 AM EDT us Juan R Presley MD LAB BLOOD BKR ORDERABLES Fiorella l Result Performing Organization Address [facility]/ZIP Co de Phone Number [address] [address] * Magnesium (08/29/2019 7:39 AM EDT) MAGNESIUM 2.4 1.6 - 2.6 mg/dL [facility] Blood 08/29/2019 7:39 AM EDT 08/29/2019 7:44 AM EDT us Juan R Presley MD LAB BLOOD BKR ORDERABLES Fiorella l Result Performing Organization Address [facility]/ZIP Co de Phone Number [address] [address] * Phosphorus (08/29/2019 7:39 AM EDT) PHOSPHORUS 3.9 2.7 - 4.5 mg/dL [facility] Blood 08/29/2019 7:39 AM EDT 08/29/2019 7:44 AM EDT us Juan R Presley MD LAB BLOOD BKR ORDERABLES Fiorella l Result Performing Organization Address [facility]/ZIP Co de Phone Number [address] [address] * (ABNORMAL) Basic metabolic panel (08/29/2019 7:39 AM EDT) SODIUM 141 133 - 146 mmol/L [facility] CHLORIDE 109(H) 96 - 108 mmol/L [facility] POTASSIUM 4.7 3.3 - 5.1 mmol/L [facility] CO2 17(L) 21 - 35 mmol/L [facility] BUN 83(H) 6 - 19 mg/dL [facility] CREATININE 2.80(H) 0.5 - 1.5 mg/dL [facility] GLUCOSE 88 70 - 99 mg/dL [facility] CALCIUM 9.2 8.4 - 10.3 mg/dL [facility] EGFR 20(L) >59 mL/min/1.7 3m2 [facility] Comment:Estimated glomerular filtration rate calculated using the CKD-EPI equation. ANION GAP 20 10 - 20 mmol/L [facility] Blood 08/29/2019 7:39 AM EDT 08/29/2019 7:44 AM EDT Juan R Presley MD LAB BLOOD BKR ORDERABLES Fiorella l Result [address] [address] * (ABNORMAL) Parathyroid hormone (PTH) (08/29/2019 7:39 AM EDT) PARATHYROID HORMONE 86(H) 15 - 65 pg/mL [facility] Blood 08/29/2019 7:39 AM EDT 08/29/2019 7:44 AM EDT Juan R Presley MD LAB BLOOD BKR ORDERABLES Fiorella l Result [address] [address] * (ABNORMAL) 25-OH vitamin D (08/29/2019 7:39 AM EDT) 25 OH VIT D (TOTAL) 29(L) 30 - 60 ng/mL [facility] Blood 08/29/2019 7:39 AM EDT 08/29/2019 7:44 AM EDT Juan R Presley MD LAB BLOOD BKR ORDERABLES Fiorella l Result Performing Organization Address City/[facility]/ZIP Co de Phone Number [address] [address] * (ABNORMAL) TOTAL PROTEIN CREATININE RATIO, RANDOM URINE (02/06/2019 7:37 AM EST) URINE TOTAL PROTEIN 44.4 mg/dL [facility] URINE CREATININE 120 mg/dL [facility] URINE TP CRE RATIO 0.37(H) 0 - 0.19 [facility] Urine (Urine) 02/06/2019 7:3 7 AM EST 02/06/2019 9:57 AM EST Juan R Presley MD LAB URINE ORDERABLES Final Re sult Performing Organization Address [facility] Co de Phone Number [address] [address] * (ABNORMAL) CBC and differential (02/06/2019 7:37 AM EST) WBC 10.25 3.40 - 11.20 K/uL [facility] RBC 4.54 3.80 - 4.80 M/uL [facility] HGB 13.8 12.0 - 15.0 g/dL [facility] HCT 40.7 36.0 - 46.0 % [facility] PLT 235 130 - 400 K/uL [facility] MCV 89.6 79.0 - 98.0 [facility] MCH 30.4 27.0 - 34.8 pg [facility] MCHC 33.9 31.5 - 36.0 g/dL [facility] RDW 12.5 10.8 - 14.6 % [facility] MPV 10.4 9.4 - 12.4 [facility] NRBC 0.00 0.00 /100 WBCs [facility] ABSOLUTE NRBC 0.00 0.00 K/uL [facility] DIFF METHOD Auto [facility] NEUTS 71.3 45.30 - 77.70 % [facility] LYMPHS 18.8 12.30 - 39.70 % [facility] MONOS 6.3 4.10 - 12.80 % [facility] EOS 2.5 0 - 7.2 % [facility] BASOS 0.6 0 - 2.80 % [facility] Granulocytes, immature (%) 0.5 0.0 - 0.9 % [facility] ABSOLUTE NEUTS 7.30 1.40 - 7.70 K/uL [facility] ABSOLUTE LYMPHS 1.93 0.60 - 3.20 K/uL [facility] ABSOLUTE MONOS 0.65(H) 0.11 - 0.59 K/uL [facility] ABSOLUTE EOS 0.26 0.01 - 0.50 K/uL [facility] ABSOLUTE BASOS 0.06 0.00 - 0.08 K/uL [facility] Granulocytes, immature 0.05 0.00 - 0.05 K/uL [facility] Blood 02/06/2019 7:37 AM EST 02/06/2019 9:57 AM EST Juan R Presley MD LAB BLOOD BKR ORDERABLES Fiorella l Result [address] [address] * (ABNORMAL) Albumin (02/06/2019 7:37 AM EST) ALBUMIN 3.7(L) 3.9 - 4.8 g/dL [facility] Blood 02/06/2019 7:37 AM EST 02/06/2019 9:57 AM EST Juan R Presley MD LAB BLOOD BKR ORDERABLES Fiorella l Result [address] [address] * Magnesium (02/06/2019 7:37 AM EST) MAGNESIUM 2.0 1.6 - 2.6 mg/dL [facility] Blood 02/06/2019 7:37 AM EST 02/06/2019 9:57 AM EST Juan R Presley MD LAB BLOOD BKR ORDERABLES Fiorella l Result [address] [address] * Phosphorus (02/06/2019 7:37 AM EST) PHOSPHORUS 3.9 2.7 - 4.5 mg/dL [facility] Blood 02/06/2019 7:37 AM EST 02/06/2019 9:57 AM EST Juan R Presley MD LAB BLOOD BKR ORDERABLES Fiorella l Result Performing Organization Address [facility] Co de Phone Number [address] [address] * (ABNORMAL) Basic metabolic panel (02/06/2019 7:37 AM EST) SODIUM 140 133 - 146 mmol/L [facility] CHLORIDE 104 96 - 108 mmol/L [facility] POTASSIUM 3.9 3.3 - 5.1 mmol/L [facility] CO2 22 21 - 35 mmol/L [facility] BUN 33(H) 6 - 19 mg/dL [facility] CREATININE 2.50(H) 0.5 - 1.5 mg/dL [facility] GLUCOSE 107(H) 70 - 99 mg/dL [facility] CALCIUM 9.3 8.4 - 10.3 mg/dL [facility] EGFR 23(L) >59 mL/min/1.7 3m2 [facility] Comment:If patient is black, multiply result by 1.159. Estimated glomerular filtration rate calculated using the CKD-EPI equation. ANION GAP 18 10 - 20 mmol/L [facility] Blood 02/06/2019 7:37 AM EST 02/06/2019 9:57 AM EST Juan R Presley MD LAB BLOOD BKR ORDERABLES Fiorella l Result Performing Organization Address City/[facility] Co de Phone Number [address] [address] * (ABNORMAL) Parathyroid hormone (PTH) (02/06/2019 7:37 AM EST) PARATHYROID HORMONE 76(H) 15 - 65 pg/mL [facility] Blood 02/06/2019 7:37 AM EST 02/06/2019 9:57 AM EST us Juan R Presley MD LAB BLOOD BKR ORDERABLES Fiorella l Result [address] [address] * 25-OH vitamin D (02/06/2019 7:37 AM EST) 25 OH VIT D (TOTAL) 44 30 - 60 ng/mL [facility] Blood 02/06/2019 7:37 AM EST 02/06/2019 9:57 AM EST us Juan R Presley MD LAB BLOOD BKR ORDERABLES Fiorella l Result Performing Organization Address City/[facility]/ZIP Co de Phone Number [address] [address] documented in this encounter Visit Diagnoses Diagnosis Nephrogenous proteinuria- Primary documented in this encounter Care Teams Manager Privacy Relationship Specialty Start Date End Date Asa Johnson DO PCP - General 03/09/17 03/28/24 Asa Johnson DO [address] [place] [id number] PCP - General Internal Medicine 03/29/24 Asa Johnson DO Historical LMR Provider 12/19/16 Lexie Tomlinson NP [address] [place] [address] Historical LMR Provider 12/19/16 2 Milaids Mckeon NP [address] [place] [address] [email or web address] Historical LMR Provider 12/19/16 2 Andre Dias MD [address] [address] Historical LMR Provider 12/19/16 Alejandro Goldberg MD [address] [place] [address] Historical LMR Provider 12/19/16 2 Asa Johnson DO [address] [facility] [place] [address] [email or web address] Insurance Assigned Provider 04/07/18 07/23/22 documented as of this encounter Additional Source Comments The information contained in this document represents components of the legal health record. It is not the complete legal health record.[facility]
--- OUTSIDE RECORDS SUMMARY | 2025-02-13 23:13 | XMS_ITS | Clinical Summary ---
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 06/07/2024 Active topiramate (TOPAMAX) 50 mg tablet Active cetirizine (ZyrTEC) 10 mg tablet Take 10 mg by mouth daily. Active simvastatin (ZOCOR) 40 mg tablet Active Qulipta 30 mg tablet Active SUMAtriptan (IMITREX) 25 mg tablet Take 25 mg by mouth every 2 hours as needed. Active ARIPiprazole (ABILIFY) 5 mg tablet SMARTSI Tablet(s) By Mouth Daily Active albuterol 2.5 mg/3 mL (0.083%) nebulizer solution Active albuterol sulfate (VENTOLIN HFA INHALATION) Active propranoloL (INDERAL) 20 mg tablet SMARTSI Tablet(s) By Mouth Twice Daily Active Trelegy Ellipta 200-62.5-25 mcg blister with device inhaler Activ e allopurinoL (ZYLOPRIM) 100 mg tablet Take 100 mg by mouth daily. Active furosemide (LASIX) 20 mg tablet SMARTSI Tablet(s) By Mouth Twice a Week Active indomethacin (INDOCIN) 50 mg capsule once daily as needed. Active zolpidem (AMBIEN) 10 mg tablet SMARTSI Tablet(s) By Mouth Daily PRN 11/01/2024 Active FLUoxetine (PROzac) 10 mg capsule Take 30 mg by mouth daily. Active FLUoxetine (PROzac) 20 mg capsule Active cholecalciferol (VITAMIN D3) 2,000 unit capsule Active Active Problems Problem Noted Date Diagnosed Date Pre-transplant evaluation for kidney transplant 12/17/2024 Focal segmental glomerulosclerosis 12/17/2024 Atrophic kidney 12/17/2024 Solitary kidney, acquired 12/17/2024 Primary hypertension 12/17/2024 Obesity, Class II, BMI 35-39.9 12/17/2024 RACH (obstructive sleep apnea) 12/17/2024 Encounter for pre-transplant evaluation for chronic kidney disease 12/17/2024 Anxiety and depression 12/06/2024 Migraines 12/06/2024 High cholesterol 09/23/2022 Essential hypertension 07/14/2020 Stage 4 chronic kidney disease 12/13/2017 Adrenal hyperplasia 12/13/2017 Endometriosis 12/13/2017 Gout 12/13/2017 Asthma 11/12/1979 Encounters Date Type Department Care Team Description 01/21/2025 Telephone [facility] Transplant Department [address] [place] [address] Avelina Kaiser RN 12/25/2024 Telephone [facility] Transplant Department [address] [place] [address] Avelina Kaiser RN 12/25/2024 Orders Only [facility] Transplant Department [address] [place] [address] Avelina Kaiser, RN Stage 4 chronic kidney disease (Primary Dx); Pre-transplant evaluation for kidney transplant 12/09/2024 2:30 PM EDT Social Work [facility] Renal Transplant [address] [place] [address] Fernando Alicia 12/09/2024 1:45 PM EDT Office Visit [facility] Transplant [address] [place] [address] Tadeo Dill MD Pre-transplant evaluation for kidney transplant (Primary Dx); Encounter for pre-transplant evaluation for chronic kidney disease; Stage 4 chronic kidney disease ; Anxiety and depression; Moderate persistent asthma with status asthmaticus (HCC); Focal segmental glomerulosclerosis; Atrophic kidney; Solitary kidney, acquired; Primary hypertension; Obesity, Class II, BMI 35-39.9; RACH (obstructive sleep apnea) 12/09/2024 1:00 PM EDT Lab [facility] Draw Site [address] [place] [address] Pre-transplant evaluation for kidney transplant; Stage 4 chronic kidney disease 12/09/2024 12:00 PM EDT Evaluation [facility] Transplant [address] [place] [address] Avelina Kaiser RN Pre-transplant evaluation for kidney transplant (Primary Dx) 12/09/2024 11:30 AM EDT Office Visit [facility] Transplant [address] [place] [address] Jessica Burgos RN Pre-transplant evaluation for kidney transplant (Primary Dx) 12/06/2024 Orders Only [facility] Transplant Department [address] [place] [phone] Avelina Kaiser RN Pre-transplant evaluation for kidney transplant (Primary Dx); Stage 4 chronic kidney disease 11/19/2024 Telephone [facility] Transplant Department [address] [place] [address] Avelina Kaiser RN from Last 3 Months Immunizations Immunization Administration Dates Next Due Influenza, Injectable, Quadrivalent, Preservativ e Free 12/29/2017 Pneumococcal Polysaccharide Vaccine, 23 Valent 1 03/11/2008 Social History Tobacco Use Types Packs/Day Years Used Date Smoking Tobacco: Never Smokeless Tobacco: Never Tobacco Cessation:Counseling Given: Not Answered Comments Unknown Sex and Gender Information Value Date Recorded Sex Assigned at Female 11/20/2024 1:53 PM EDT Legal Sex Female 9:20 AM EDT Gender Identity Female 11/20/2024 1:53 PM EDT Sexual Orientation Straight 12/06/2024 9: 14 AM EDT Last Filed Vital Signs Vital Sign Reading Time Taken Comments Blood Pressure 103/67 12/09/2024 11:04 AM EDT Pulse 64 12/09/2024 11:04 AM EDT Temperature 36.7 C (98.1 F) 12/09/2024 11:04 AM EDT Respiratory Rate 20 12/09/2024 11:04 AM EDT Oxygen Saturation 96% 12/09/2024 11:04 AM EDT Inhaled Oxygen Concentration - - Weight 89.9 kg (198 lb 3.1 oz) 12/09/2024 11:04 AM EDT Height 160 cm (5' 3 ) 12/09/2024 11:04 AM EDT Body Mass Index 35.11 12/09/2024 11:04 AM EDT Plan of Treatment Upcoming Encounters Date Type Department Care Team (Late st Contact Info) Description 06/10/2025 2:40 PM EDT Follow-Up [facility] Transplant [address], [place] [phone] Tadeo Dill MD [address] [place], [place] [id number] Health Maintenance Due Date Last Done Comments 25 Hydroxy / Vitamin D 1975 Cervical Cancer Screening 1975 Cologuard 1975 Colon Cancer Screening 1975 Colonoscopy 1975 FOBT / Fit Test 1975 HPV and Pap Smear 1975 PTH 1975 Pap Smear 1975 Sigmoidoscopy 1975 Urine Microalbumin 11/30/1985 Hepatitis B Vaccines (1 of 3 - 19+ 3-dose series) 11/30/1994 Pneumococcal Vaccine: Pediat kia (0-5 Years) and At-Risk Patients (6-50 Years) (2 of 2 - PCV) 10/27/2019 10/26/2018, 01/09/2009 Mammogram 03/28/2021 03/28/2019, 03/07, 03/26/2018 Basic Metabolic Panel 12/11/2023 08/11/2023, 023 Alcohol/Substance Use Screening 03/06/2024 Depression Screening and Follow-Up 03/06/2024 Social Drivers of Health Mone ual Screening 03/06/2024 Influenza Vaccine (#1) 2024 , 12/30/2022, 01/01/2022, Additional history exists COVID-19 Vaccine (5 - 2024-2 6 season) 2024 12/13/2021, 01/26/2021, 04/29/2020, Additional history exists Hemoglobin 12/09/2025 12/09/2024 Phosphorus 12/09/2025 12/09/2024 Diabetes Screening 08/10/2026 08/11/2023, 1 04/04/2022, 02/06/2019 DTaP,Tdap,and Td Vaccines (2 - Td or Tdap) 04/12/2029 04/12/2019 CKD: Referral to Nephrology Completed 12/09/2024 HIV Screening Completed 12/09/2024 Hepatitis C Screening Completed 12/09/2024 Procedures * Due to [place] state law, this organization might not be sharing negative HIV tests. Procedure Name Priority Date/Time Associated Diagnosis Comments HERPES SIMPLEX VIRUS 1&2 IGG W/REFLEX TO HSV-2 INHIBITION Routine 12/09/2024 12:54 PM EDT Pre-transplant evaluation for kidney transplant Stage 4 chronic kidney disease ABO/RH BLOOD TYPE Routine 12/09/2024 12: 54 PM EDT Pre-transplant evaluation for kidney transplant Stage 4 chronic kidney disease ALBUMIN Routine 12/09/2024 12:54 PM EDT Pre-transplant evaluation for kidney transplant Stage 4 chronic kidney disease ALT Routine 12/09/2024 12:54 PM EDT Pre-transplant evaluation for kidney transplant Stage 4 chronic kidney disease AST Routine 12/09/2024 12:54 PM EDT Pre-transplant evaluation for kidney transplant Stage 4 chronic kidney disease BILIRUBIN, DIRECT Routine 12/09/2024 12: 54 PM EDT Pre-transplant evaluation for kidney transplant Stage 4 chronic kidney disease BILIRUBIN, TOTAL Routine 12/09/2024 12:5 4 PM EDT Pre-transplant evaluation for kidney transplant Stage 4 chronic kidney disease BUN Routine 12/09/2024 12:54 PM EDT Pre-transplant evaluation for kidney transplant Stage 4 chronic kidney disease CALCIUM Routine 12/09/2024 12:54 PM EDT Pre-transplant evaluation for kidney transplant Stage 4 chronic kidney disease CBC AUTO DIFFERENTIAL Routine 12/09/2024 12:54 PM EDT Pre-transplant evaluation for kidney transplant Stage 4 chronic kidney disease CREATININE Routine 12/09/2024 12:54 PM EDT Pre-transplant evaluation for kidney transplant Stage 4 chronic kidney disease CYTOMEGALOVIRUS ANTIBODY, IGG Routine 12/09/2024 12:54 PM EDT Pre-transplant evaluation for kidney transplant Stage 4 chronic kidney disease SCOTT-GAITAN VIRUS ANTIBODY PANEL Routine 12/09/2024 12:54 PM EDT Pre-transplant evaluation for kidney transplant Stage 4 chronic kidney disease HEPATITIS A ANTIBODY, TOTAL Routine 12/09/2024 12:54 PM EDT Pre-transplant evaluation for kidney transplant Stage 4 chronic kidney disease HEPATITIS B CORE ANTIBODY, TOTAL Routine 12/09/2024 12:54 PM EDT Pre-transplant evaluation for kidney transplant Stage 4 chronic kidney disease HEPATITIS B SURFACE ANTIGEN W/CONFIRMATION Routine 12/09/2024 12:54 PM EDT Pre-transplant evaluation for kidney transplant Stage 4 chronic kidney disease HEPATITIS B SURFACE ANTIBODY Routine 12/09/2024 12:54 PM EDT Pre-transplant evaluation for kidney transplant Stage 4 chronic kidney disease HEPATITIS C ANTIBODY W/REFLEX TO HCV RNA, QUANTITATIVE PCR Routine 12/09/2024 12:54 PM EDT Pre-transplant evaluation for kidney transplant Stage 4 chronic kidney disease HIV-1/2 ANTIGEN/ANTIBODIES 4TH GENERATION W/REFLEX Routine 12/09/2024 12:54 PM EDT Pre-transplant evaluation for kidney transplant Stage 4 chronic kidney disease MMR PANEL (MEASLES, MUMPS, RUBELLA), IGG Routine 12/09/2024 12:54 PM EDT Pre-transplant evaluation for kidney transplant Stage 4 chronic kidney disease PHOSPHORUS Routine 12/09/2024 12:54 PM EDT Pre-transplant evaluation for kidney transplant Stage 4 chronic kidney disease PROTIME-INR Routine 12/09/2024 12:54 PM EDT Pre-transplant evaluation for kidney transplant Stage 4 chronic kidney disease PTT Routine 12/09/2024 12:54 PM EDT Pre-transplant evaluation for kidney transplant Stage 4 chronic kidney disease QUANTIFERON-TB GOLD PLUS, 1 [id number] Routine 12/09/2024 12:54 PM EDT Pre-transplant evaluation for kidney transplant Stage 4 chronic kidney disease RPR (DIAGNOSIS) W/REFLEX TO TITER & TPPA [id number] Routine 12/09/2024 12:54 PM EDT Pre-transplant evaluation for kidney transplant Stage 4 chronic kidney disease VARICELLA ZOSTER ANTIBODY, IGG Routine 12/09/2024 12:54 PM EDT Pre-transplant evaluation for kidney transplant Stage 4 chronic kidney disease HLA TRANSPLANT WORK-UP (ALLELE LEVEL A/B/C/DRB1/PAS494/DQA1/ DQB1/DPA1/DPB1) Routine 12/09/2024 12:54 PM EDT Pre-transplant evaluation for kidney transplant Stage 4 chronic kidney disease HLA ANTIBODY IDENTIFICATION WITH TREATMENT - CLASS I Routine 12/09/2024 12:54 PM EDT Pre-transplant evaluation for kidney transplant Stage 4 chronic kidney disease HLA ANTIBODY IDENTIFICATION WITH TREATMENT - CLASS II Routine 12/09/2024 12:54 PM EDT Pre-transplant evaluation for kidney transplant Stage 4 chronic kidney disease CYSTATIN C WITH GLOMERULAR FILTRATION RATE, ESTIMATED (EGFR)-[id number] Routine 12/09/2024 12:54 PM EDT Pre-transplant evaluation for kidney transplant Stage 4 chronic kidney disease from Last 3 Months Results * Due to [place] state law, this organization might not be sharing negative HIV tests. * HLA Transplan Work-Up(Allele Level A/B/C/DRB1/VTK874/DQA1/DQB1/DPA1/DPB1) (12/09/2024 12:54 PM EDT) Pathologist [facility] Information See Below 12/17/2024 3:26 PM EDT [facility] Comment: VICTOR MANUEL: [id number] Director: Carolina Murray MD. [facility] PFI: [id number] UNOS: [id number] This test was developed and its performance characteristics determined by this laboratory. It has not been cleared or approved by the U.S. Food and Drug Administration. The FDA has determined that such clearance or approval is not necessary. This test is used for clinical purposes. It should not be regarded as investigational or for research. This laboratory is certified under the Clinical Laboratory Improvement Amendments of 1988 (CLIA-88) as qualified to perform high complexity clinical laboratory testing. DRB1-1 DR*04:01 12/17/2024 3:26 PM EDT [facility] DRB1-2 DR*11:01 12/17/2024 3:26 PM EDT [facility] DRB1-1 NMDP DATA NOT REPORTED 12/17/2024 3:26 PM EDT [facility] DRB1-2 NMDP DATA NOT REPORTED 12/17/2024 3:26 PM EDT [facility] Test Method NGS 12/17/2024 3:26 PM EDT [facility] DQA1-1 DQA*03:01 12/17/2024 3:26 PM EDT [facility] DQA1-2 DQA*05:05 12/17/2024 3:26 PM EDT [facility] DQA1-1 NMDP DATA NOT REPORTED 12/17/2024 3:26 PM EDT [facility] DQA1-2 NMDP DATA NOT REPORTED 12/17/2024 3:26 PM EDT [facility] DPA1-1 DPA*01:03 12/17/2024 3:26 PM EDT [facility] DPA1-2 DATA NOT REPORTED 12/17/2024 3:26 PM EDT [facility] DPA1-1 NMDP DATA NOT REPORTED 12/17/2024 3:26 PM EDT [facility] DPA1-2 NMDP DATA NOT REPORTED 12/17/2024 3:26 PM EDT [facility] B*-1 B*15:01 12/17/2024 3:26 PM EDT [facility] B*-2 B*49:01 12/17/2024 3:26 PM EDT [facility] B*-1 NMDP DATA NOT REPORTED 12/17/2024 3:26 PM EDT [facility] B*-2 NMDP DATA NOT REPORTED 12/17/2024 3:26 PM EDT [facility] DRB3-1 3*02:02P 12/17/2024 3:26 PM EDT [facility] DRB3-2 DATA NOT REPORTED 12/17/2024 3:26 PM EDT [facility] DRB3-1 NMDP DATA NOT REPORTED 12/17/2024 3:26 PM EDT [facility] DRB3-2 NMDP DATA NOT REPORTED 12/17/2024 3:26 PM EDT [facility] DRB4-1 DATA NOT REPORTED 12/17/2024 3:26 PM EDT [facility] DRB4-2 4*01:01P 12/17/2024 3:26 PM EDT [facility] DRB4-1 NMDP DATA NOT REPORTED 12/17/2024 3:26 PM EDT [facility] DRB4-2 NMDP DATA NOT REPORTED 12/17/2024 3:26 PM EDT [facility] DRB5-1 DATA NOT REPORTED 12/17/2024 3:26 PM EDT [facility] DRB5-2 DATA NOT REPORTED 12/17/2024 3:26 PM EDT [facility] DRB5-1 NMDP DATA NOT REPORTED 12/17/2024 3:26 PM EDT [facility] DRB5-2 NMDP DATA NOT REPORTED 12/17/2024 3:26 PM EDT [facility] C*-1 C*03:03 12/17/2024 3:26 PM EDT [facility] C*-2 C*07:01 12/17/2024 3:26 PM EDT [facility] C*-1 NMDP DATA NOT REPORTED 12/17/2024 3:26 PM EDT [facility] C*-2 NMDP DATA NOT REPORTED 12/17/2024 3:26 PM EDT [facility] DPB1-1 DPB*04:01P 12/17/2024 3:26 PM EDT [facility] DPB1-2 DATA NOT REPORTED 12/17/2024 3:26 PM EDT [facility] DPB1-1 NMDP DATA NOT REPORTED 12/17/2024 3:26 PM EDT [facility] DPB1-2 NMDP DATA NOT REPORTED 12/17/2024 3:26 PM EDT [facility] A*-1 A*02:01 12/17/2024 3:26 PM EDT [facility] A*-2 A*23:01 12/17/2024 3:26 PM EDT [facility] A*-1 NMDP DATA NOT REPORTED 12/17/2024 3:26 PM EDT [facility] A*-2 NMDP DATA NOT REPORTED 12/17/2024 3:26 PM EDT [facility] DQB1-1 DQB*03:01 12/17/2024 3:26 PM EDT [facility] DQB1-2 DQB*03:02 12/17/2024 3:26 PM EDT [facility] DQB1-1 NMDP DATA NOT REPORTED 12/17/2024 3:26 PM EDT [facility] DQB1-2 NMDP DATA NOT REPORTED 12/17/2024 3:26 PM EDT [facility] Blood Structure of peripheral vein / Unknown Venipuncture / Unknown 12/09/2024 12:54 PM EDT 12/09/2024 1:03 PM EDT Tadeo Dill MD HLA LAB ORDERABLES Edited Result - Final [facility] [address] [facility] Rm: [id number] [place] [address], * (ABNORMAL) Cystatin C with Glomerular Filtration Rate, Estimated (eGFR) (12/09/2024 12:54 PM EDT) [facility] Cystatin C 2.96(H) 0.52 - 1.21 mg/L 12/12/2024 4:40 AM EDT [facility] (MARYCARMEN) eGFR Non- 18(L) >=60 NA 12/12/2024 4:40 AM EDT YASMIN JERNIGAN) Comment: REFERENCE RANGE:>=60 mL/min/1.73mE2 Blood Structure of peripheral vein / Unknown Venipuncture / Unknown 12/09/2024 12:54 PM EDT 12/09/2024 1:05 PM EDT Александр JERNIGAN) - 12/12/2024 4:40 AM EDT [facility] Received Date: us Tadeo Dill MD LAB BLOOD ORDERABLES Final Resul t YASMIN JERNIGAN) [address] [place] [address], [place] * (ABNORMAL) Herpes Simplex Virus 1&2 IgG w/Reflex to HSV-2 Inhibition (12/09/2024 12:54 PM EDT) Pathologist [facility] HSV 1 IgG Type Specific Ab 25.70(H) index 12/10/2024 10:36 PM EDT [facility] HSV 2 IgG Type Specific Ab <0.90 index 12/10/2024 10:36 PM EDT [facility] Comment: Index Interpretation ----- <0.90 Negative 0.90-1.09 Equivocal >1.09 Positive This assay utilizes recombinant type-specific antigens to differentiate HSV-1 from HSV-2 infections. A positive result cannot distinguish between recent and past infection. If results are negative or equivocal, consider repeat testing in 4-12 weeks with a new specimen. The performance characteristics of the assay have not been established for pediatric populations, immunocompromised patients, or screening. Positive HSV-2 IgG samples with index values between 1.10-6.00 will reflex to the HSV-2 IgG inhibition test. See Note 1 Note 1 For additional information, please refer to http://education.Aireum/faq/FAQ73 (This link is being provided for informational/ educational purposes only.) Blood Structure of peripheral vein / Unknown Venipuncture / Unknown 12/09/2024 12:54 PM EDT 12/09/2024 1:23 PM EDT Narrative YAS[facility] PULIDO - 12/10/2024 10:36 PM EDT [facility] Received Date: us Tadeo Dill MD LAB BLOOD ORDERABLES Final Resul t YASMIN PULIDO [address] [facility] [address], [place] [address], [facility] [address] [facility] [address] Floor, [place] [address], * MMR Panel, IgG (12/09/2024 12:54 PM EDT) Measles Antibody (IgG), Immune Status 27.20 AU/mL 12/10/2024 9:26 AM EDT [facility] Comment: AU/mL Interpretation ----- <13.50 Not consistent with immunity 13.50-16.49 Equivocal >16.49 Consistent with immunity The presence of measles IgG suggests immunization or past or current infection with measles virus. For additional information, please refer to http://education.Aireum/faq/SCL944 (This link is being provided for informational/ educational purposes only.) Mumps Antibody (IgG), Immune Status >300.00 AU/mL 12/10/2024 9:26 AM EDT [facility] Comment: AU/mL Interpretation ------- <9.00 Not consistent with immunity 9.00-10.99 Equivocal >10.99 Consistent with immunity The presence of mumps IgG antibody suggests immunization or past or current infection with mumps virus. Rubella Antibody (IgG), Immune Status 2.65 Index 12/10/2024 9:26 AM nfonT [facility] Comment: Index Interpretation ----- <0.90 Not consistent with immunity 0.90-0.99 Equivocal > or = 1.00 Consistent with immunity The presence of rubella IgG antibody suggests immunization or past or current infection with rubella virus. Blood Structure of peripheral vein / Unknown Venipuncture / Unknown 12/09/2024 12:54 PM EDT 12/09/2024 1:05 PM EDT Александр YASMIN PULIDO - 12/10/2024 9:26 AM EDT [facility] Received Date:[id number] us Tadeo Dill MD LAB BLOOD ORDERABLES Final Resul t Performing Organization Address City/[facility]/ZIP Co de Phone Number [facility] [address], [place] [address], [place] [phone] [facility] [address], [place] [address], [place] [phone] * RPR (Diagnosis) w/Reflex to Titer & TPPA Confirm (12/09/2024 12:54 PM EDT) RPR W/Refl Titer NON-REACT OMERO NON-REACT OMERO 12/11/2024 10:59 AM EDT [facility] Blood Structure of peripheral vein / Unknown Venipuncture / Unknown 12/09/2024 12:54 PM EDT 12/09/2024 1:04 PM EDT [facility]сандр [facility] - 12/11/2024 10:59 AM EDT [facility] Received Date:[id number] us Tadeo Dill MD LAB BLOOD ORDERABLES Final Resul t Performing Organization Address City/[facility]/ZIP Co de Phone Number [facility] [address], [place] [address], [place] [phone] [facility] [address], [place] [address], [place] [phone] * QuantiFERON-TB Gold Plus, 1 Tube (12/09/2024 12:54 PM EDT) QuantiFERON-TB Gold Plus NEGATIVE NEGATIVE 12/11/2024 2:57 PM EDT [facility] Comment: Negative test result. M. tuberculosis complex infection unlikely. NIL 0.02 IU/mL 12/11/2024 2:57 PM EDT [facility] Mitogen-NIL 8.24 IU/mL 12/11/2024 2:57 PM EDT [facility] TB1-NIL 0.00 IU/mL 12/11/2024 2:57 PM EDT [facility] TB2-NIL 0.00 IU/mL 12/11/2024 2:57 PM EDT [facility] Comment: The Nil tube value reflects the background interferon gamma immune response of the patient's blood sample. This value has been subtracted from the patient's displayed TB and Mitogen results. Lower than expected results with the Mitogen tube prevent false-negative Quantiferon readings by detecting a patient with a potential immune suppressive condition and/or suboptimal pre-analytical specimen handling. The TB1 Antigen tube is coated with the M. tuberculosis-specific antigens designed to elicit responses from TB antigen primed CD4+ helper T-lymphocytes. The TB2 Antigen tube is coated with the M. tuberculosis-specific antigens designed to elicit responses from TB antigen primed CD4+ helper and CD8+ cytotoxic T-lymphocytes. For additional information, please refer to https://education.BlockBeacon/faq/EVF268 (This link is being provided for informational/ educational purposes only.) Blood Structure of peripheral vein / Unknown Venipuncture / Unknown 12/09/2024 12:54 PM EDT 12/09/2024 1:02 PM EDT Narrative [facility] - 12/11/2024 2:57 PM EDT [facility] Received Date: us Tadeo Dill MD LAB BLOOD ORDERABLES Final Resul t [facility] [address] [facility] [address], [place] [address], [place] [phone] [facility] [address] [facility] 3[address], [place] [address], * (ABNORMAL) CBC Auto Differential (12/09/2024 12:54 PM EDT) WBC 12.9(H) 3.8 - 10.8 10*3/uL 12/09/2024 1:14 PM EDT [facility] RBC 3.95 3.80 - 5.10 10*6/uL 12/09/2024 1:14 PM EDT [facility] Hemoglobin 12.2 11.7 - 15.5 g/dL 12/09/2024 1:14 PM EDT [facility] Hematocrit 36.0 35.0 - 45.0 % 12/09/2024 1:14 PM EDT [facility] MCV 91.1 80.0 - 100.0 fL 12/09/2024 1:14 PM EDT [facility] MCH 30.9 27.0 - 33.0 pg 12/09/2024 1:14 PM EDT [facility] MCHC 33.9 32.0 - 36.0 g/dL 12/09/2024 1:14 PM EDT [facility] RDW 12.5 11.0 - 15.0 % 12/09/2024 1:14 PM EDT [employer] [facility] Platelets 274 140 - 400 10*3/uL 12/09/2024 1:14 PM EDT [facility] MPV 10.2 7.5 - 12.5 fL 12/09/2024 1:14 PM EDT [facility] Neutrophil % 74.7 % 12/09/2024 1:14 PM EDT [facility] Immature Grans % 2.1(H) 0.0 - 0.9 % 12/09/2024 1:14 PM EDT [facility] Lymphocyte % 13.8 % 12/09/2024 1:14 PM EDT [facility] Monocyte % 5.4 % 12/09/2024 1:14 PM EDT [facility] Eosinophil % 3.2 % 12/09/2024 1:14 PM EDT [facility] Basophil % 0.8 % 12/09/2024 1:14 PM EDT [facility] [employer] [facility] Neutrophil # 9.63(H) 1.50 - 7.80 10*3/uL 12/09/2024 1:14 PM EDT [facility] [employer] [facility] Immature Grans # 0.27(H) <=0.03 10*3/uL 12/09/2024 1:14 PM EDT [facility] [facility] Lymphocyte # 1.80 0.85 - 3.90 10*3/uL 12/09/2024 1:14 PM EDT [facility] [employer] [employer] [facility] Monocyte # 0.70 0.20 - 0.95 10*3/uL 12/09/2024 1:14 PM EDT [facility] [employer] [facility] Eosinophil # 0.40 0.02 - 0.50 10*3/uL 12/09/2024 1:14 PM EDT [facility] [facility] Basophil # 0.10 0.00 - 0.20 10*3/uL 12/09/2024 1:14 PM EDT [facility] nRBC % 0.0 /100 WBCs 12/09/2024 1:14 PM EDT [facility] [employer] [facility] nRBC # <0.01 <0.01 10*3/uL 12/09/2024 1:14 PM EDT [facility] [employer] [facility] Blood Structure of peripheral vein / Unknown Venipuncture / Unknown 12/09/2024 12:54 PM EDT 12/09/2024 1:05 PM EDT us Tadeo Dill MD LAB BLOOD ORDERABLES Final Resul t [facility] [employer] [facility] [address] [place] [address], [place] * (ABNORMAL) Scott-Gaitan Virus VCA Antibody Panel (12/09/2024 12:54 PM EDT) EBV Viral Capsid Ag Ab (IGM) <36.00 U/mL 12/11/2024 1:27 PM EDT [facility] Comment: U/mL Interpretation ---- <36.00 Negative 36.00-43.99 Equivocal >43.99 Positive EBV Viral Capsid Ag Ab (IGG) >750.00(H) U/mL 12/11/2024 1:27 PM EDT [facility] Comment: U/mL Interpretation ---- <18.00 Negative 18.00-21.99 Equivocal >21.99 Positive EBV Nuclear Ag Ab 193.00(H) U/mL 025 1:27 PM EDT [facility] Comment: U/mL Interpretation ---- <18.00 Negative 18.00-21.99 Equivocal >21.99 Positive Interpretation: See Comments 12/11/2024 1:27 PM EDT [employer] Comment: Suggestive of a past Scott-Gaitan virus infection. In infants, a similar pattern may occur as a result of passive maternal transfer of antibody. Blood Structure of peripheral vein / Unknown Venipuncture / Unknown 12/09/2024 12:54 PM EDT 12/09/2024 1:04 PM EDT Narrative [facility] - 12/11/2024 1:27 PM EDT [facility] Received Date: us Tadeo Dill MD LAB BLOOD ORDERABLES Final Resul t [facility] [address] [facility] 3rd Floor, [place] [address], [place] [phone] [facility] [address] [facility] 3rd Floor, [place] [address], [place] [phone] * Hepatitis C Antibody w/Reflex to PCR (12/09/2024 12:54 PM EDT) [facility] Hepatitis C Antibody NON-REACT OMEOR NON-REACT OMERO 12/09/2024 10:40 PM EDT [employer] Comment: HCV antibody was non-reactive. There is no laboratory evidence of HCV infection. In most cases, no further action is required. However, if recent HCV exposure is suspected, a test for HCV RNA (test code 13935) is suggested. For additional information please refer to http://Dream Kitchen.BlockBeacon/faq/GWP49d2 (This link is being provided for informational/ educational purposes only.) Blood Structure of peripheral vein / Unknown Venipuncture / Unknown 12/09/2024 12:54 PM EDT 12/09/2024 1:05 PM EDT Narrative [facility] 12/09/2024 10:40 PM EDT [facility] Received Date: us Tadeo Dill MD LAB BLOOD ORDERABLES Final Resul t Performing Organization Address City/[facility]/ZIP Co de Phone Number [facility] [address], [place] [address], [place] [phone] [facility] [address], [place] [address], [place] [phone] * (ABNORMAL) Hepatitis A Antibody, Total (12/09/2024 12:54 PM EDT) Hepatitis A Ab, Total REACTIVE( A) NON-REACT OMERO 12/09/2024 10:40 PM EDT [facility] Comment: For additional information, please refer to http://Dream Kitchen.BlockBeacon/faq/MTL284 (This link is being provided for informational/ educational purposes only.) Blood Structure of peripheral vein / Unknown Venipuncture / Unknown 12/09/2024 12:54 PM EDT 12/09/2024 1:04 PM EDT Narrative [facility] - 12/09/2024 10:40 PM EDT [facility] Received Date:[id number] us Tadeo Dill MD LAB BLOOD ORDERABLES Final Resul t [facility] [address] [facility] 3rd Floor, [place] [address], [place] [phone] [employer] [facility] [address] [facility] 3rd Floor, [place] [address], [place] [phone] * Hepatitis B Core Antibody, Total (12/09/2024 12:54 PM EDT) Hepatitis B Core Ab Total NON-REACT OMERO NON-REACT OMERO 12/09/2024 9:42 PM EDT [facility] Comment: For additional information, please refer to http://education.BlockBeacon/faq/PKY593 (This link is being provided for informational/ educational purposes only.) Blood Structure of peripheral vein / Unknown Venipuncture / Unknown 12/09/2024 12:54 PM EDT 12/09/2024 1:04 PM EDT Narrative [facility] - 12/09/2024 9:42 PM EDT [facility] Received Date: us Tadeo Dill MD LAB BLOOD ORDERABLES Final Resul t [facility] [address] [facility] 3rd Floor, [place] [address], [place] [phone] [employer] [facility] [address], [place] [address], [place] [phone] * ABO/Rh Blood Type (12/09/2024 12:54 PM EDT) ABO Blood Type A 12/09/2024 2:18 PM EDT [facility] RH Type Positive 12/09/2024 2:18 PM EDT [facility] Blood Structure of peripheral vein / Unknown Venipuncture / Unknown 12/09/2024 12:54 PM EDT 12/09/2024 1:03 PM EDT us Tadeo Dill MD LAB BLOOD BANK TEST ORDERABLES F inal Result [facility] [address] [place] [address], * HIV-1/2 Antigen/Antibodies 4th Generation w/Reflex (12/09/2024 12:54 PM EDT) HIV Final Interp HIV NEGATIVE 12/09/2024 10:40 PM EDT [employer] [facility] Comment: HIV-1 antigen and HIV-1/HIV-2 antibodies were not detected. There is no laboratory evidence of HIV infection. Blood Structure of peripheral vein / Unknown Venipuncture / Unknown 12/09/2024 12:54 PM EDT 12/09/2024 1:05 PM EDT [employer] [facility] - 12/09/2024 10:40 PM EDT [facility] Received Date: Tadeo Dill MD LAB BLOOD ORDERABLES Final Resul t [facility] [address] [facility] 3rd Floor, [place] [address], [place] [phone] [employer] [facility] [address] [facility] 3rd Floor, [place] [address], [place] [phone] * (ABNORMAL) Hepatitis B Surface Antibody (12/09/2024 12:54 PM EDT) Hepatitis B Surface Ab Immunity, Qn <5(L) > OR = 10 mIU/mL 12/09/2024 7:57 PM EDT [employer] [facility] Comment: PATIENT DOES NOT HAVE IMMUNITY TO HEPATITIS B VIRUS. For additional information, please refer to http://education.BlockBeacon/faq/CJD658 (This link is being provided for informational/ educational purposes only). Blood Structure of peripheral vein / Unknown Venipuncture / Unknown 12/09/2024 12:54 PM EDT 12/09/2024 1:04 PM EDT [facility] [employer] DevelopmentNight & Day StudiosSA[facility] - 12/09/2024 7:57 PM EDT [facility] Received Date:[id number] us Tadeo Dill MD LAB BLOOD ORDERABLES Final Resul t [facility] [address], [place] [address], [place] [phone] [employer] [facility] [address], [place] [address], * Hepatitis B Surface Antigen w/Confirmation (12/09/2024 12:54 PM EDT) Pathologist [facility] Hepatitis B Surface Antigen NON-REACT OMERO NON-REACT OMERO 12/10/2024 6:31 AM EDT [employer] [facility] Comment: For additional information, please refer to http://education.BlockBeacon/faq/GQR763 (This link is being provided for informational/ educational purposes only.) Blood Structure of peripheral vein / Unknown Venipuncture / Unknown 12/09/2024 12:54 PM EDT 12/09/2024 1:05 PM EDT Narrative [facility] - 12/10/2024 6:31 AM EDT [facility] Received Date:[id number] us Tadeo Dill MD LAB BLOOD ORDERABLES Final Resul t Performing Organization Address City/[facility]/ZIP Co de Phone Number [facility] [address], [place] [address], [place] [phone] [facility] [address], [place] [address], [place] [phone] * Cytomegalovirus Antibody, IgG (12/09/2024 12:54 PM EDT) Pathologist [facility] Cytomegalovirus Antibody (IgG) <0.60 U/mL 12/10/2024 9:26 AM EDT [facility] Comment: U/mL Interpretation ----- <0.60 Negative 0.60-0.69 Equivocal > or = 0.70 Positive A positive result indicates that the patient has antibody to CMV. It does not differentiate between an active or past infection. Blood Structure of peripheral vein / Unknown Venipuncture / Unknown 12/09/2024 12:54 PM EDT 12/09/2024 1:05 PM EDT Narrative [facility] - 12/10/2024 9:26 AM EDT [facility] Received Date: us Tadeo Dill MD LAB BLOOD ORDERABLES Final Resul t Performing Organization Address City/[facility]/ZIP Co de Phone Number [address]rd Floor, [place] [address], [place] [phone] [employer] [address], [place] [address], [place] [phone] * PTT (12/09/2024 12:54 PM EDT) aPTT 26.2 23.0 - 32.0 Seconds 12/09/2024 1:33 PM EDT [facility] Comment: Current PTT reagent is not sensitive to detect all Lupus Anticoagulant (LA) Inhibitor Cases. If a LA is suspected, please order a Lupus Anticoagulation w/ Reflex Test which is performed at [email or web address] in [place], [place]. Blood Structure of peripheral vein / Unknown Venipuncture / Unknown 12/09/2024 12:54 PM EDT 12/09/2024 1:05 PM EDT us Tadeo Dill MD LAB BLOOD ORDERABLES Final Resul t [facility] [address] [place] [address], * Protime-INR (12/09/2024 12:54 PM EDT) PT 10.3 9.6 - 12.4 Seconds 12/09/2024 1:33 PM EDT [facility] INR 0.9 0.9 - 1.1 12/09/2024 1:33 PM EDT [facility] Comment:The optimal therapeu tic INR range for patients treated with Vitamin K antagonists (VKAS, e.g., Warfarin) is 2.0 to 3.5. Discuss the desired range with your doctor/care team. Blood Structure of peripheral vein / Unknown Venipuncture / Unknown 12/09/2024 12:54 PM EDT 12/09/2024 1:05 PM EDT Tadeo Dill MD LAB BLOOD ORDERABLES Final Resul t [facility] [address] [place] [address], * (ABNORMAL) Varicella Zoster Antibody, IgG (12/09/2024 12:54 PM EDT) Varicella Zoster Virus Antibody <1.00(L) S/CO 12/11/2024 2:41 AM EDT [facility] Comment: Signal to Cut-off S/CO Interpretation --------- <1.00 Negative - Antibody not detected > or = 1.00 Positive - Antibody detected A positive result indicates that the patient has antibody to VZV but does not differentiate between an active or past infection. The clinical diagnosis must be interpreted in conjunction with the clinical signs and symptoms of the patient. This assay reliably measures immunity due to previous infection but may not be sensitive enough to detect antibodies induced by vaccination. Thus, a negative result in a vaccinated individual does not necessarily indicate susceptibility to VZV infection. A more sensitive test for vaccination-induced immunity is Varicella Zoster Virus Antibody Immunity Screen, ACIF. Blood Structure of peripheral vein / Unknown Venipuncture / Unknown 12/09/2024 12:54 PM EDT 12/09/2024 1:04 PM EDT Narrative [facility] 12/11/2024 2:41 AM EDT [facility] Received Date: us Tadeo Dill MD LAB BLOOD ORDERABLES Final Resul t [facility] 200 [facility] 3rd Floor, [place] [address], [place] [phone] [facility] [facility] 200 [facility] 3rd Floor, [place] [address], [place] [phone] * (ABNORMAL) BUN (12/09/2024 12:54 PM EDT) BUN 33(H) 7 - 23 mg/dL 12/09/2024 1:35 PM EDT [facility] Blood Structure of peripheral vein / Unknown Venipuncture / Unknown 12/09/2024 12:54 PM EDT 12/09/2024 1:05 PM EDT Tadeo Dill MD LAB BLOOD ORDERABLES Final Resul t Performing Organization Address City/[facility]/ZIP Co de Phone Number [facility] [address] [place] [address], [place] * ALT (12/09/2024 12:54 PM EDT) ALT 15 10 - 40 U/L 12/09/2024 1:35 PM EDT [facility] Blood Structure of peripheral vein / Unknown Venipuncture / Unknown 12/09/2024 12:54 PM EDT 12/09/2024 1:05 PM EDT Tadeo Dill MD LAB BLOOD ORDERABLES Final Resul t [facility] [address] [place] [address], [place] * AST (12/09/2024 12:54 PM EDT) AST 17 10 - 40 U/L 12/09/2024 1:35 PM EDT [facility] Blood Structure of peripheral vein / Unknown Venipuncture / Unknown 12/09/2024 12:54 PM EDT 12/09/2024 1:05 PM EDT us Tadeo Dill MD LAB BLOOD ORDERABLES Final Resul t Performing Organization Address City/[facility]/ZIP Co de Phone Number [employer] [facility] [address] [place] [address], * Phosphorus (12/09/2024 12:54 PM EDT) Phosphorus 3.2 2.5 - 4.5 mg/dL 12/09/2024 1:35 PM EDT [facility] [employer] CL[facility] PATHOLOGY LABORATORY Blood Structure of peripheral vein / Unknown Venipuncture / Unknown 12/09/2024 12:54 PM EDT 12/09/2024 1:05 PM EDT us Tadeo Dill MD LAB BLOOD ORDERABLES Final Resul t Performing Organization Address [facility] de Phone Number [employer] [facility] [address] [place] [address], [place] * (ABNORMAL) Creatinine (12/09/2024 12:54 PM EDT) Creatinine 3.28(H) 0.50 - 1.20 mg/dL 12/09/2024 1:35 PM EDT [facility] [employer] [facility] LAB[facility] eGFR 17(L) >=60 mL/min/1 .73m2 12/09/2024 1:35 PM EDT [facility] [employer] [facility] Comment:The estimated glomer ular filtration rate (eGFR) is calculated using a new formula developed by the NKF-ASN task force to eliminate race-based correction factors. The new formula uses serum/plasma creatinine, age, and gender to determine eGFR. A value below 60mls/min might indicate kidney disease and will be flagged. For additional information, see Edel et al, Am J Kidney Dis. 2021;79(2):268- 288, A Unifying Approach for GFR estimation: Recommendations of the NKF-ASN Task Force on Reassessing the Inclusion of Race in Diagnosing Kidney Disease . Blood Structure of peripheral vein / Unknown Venipuncture / Unknown 12/09/2024 12:54 PM EDT 12/09/2024 1:05 PM EDT us Tadeo Dill MD LAB BLOOD ORDERABLES Final Resul t [facility] [address] [place] [address], [place] * Calcium (12/09/2024 12:54 PM EDT) Calcium 9.0 8.6 - 10.5 mg/dL 12/09/2024 1:35 PM EDT [facility] Blood Structure of peripheral vein / Unknown Venipuncture / Unknown 12/09/2024 12:54 PM EDT 12/09/2024 1:05 PM EDT us Tadeo Dill MD LAB BLOOD ORDERABLES Final Resul t Performing Organization Address City/[facility]/ZIP Co de Phone Number [facility] [address] [place] [address], [place] * Bilirubin, Direct (12/09/2024 12:54 PM EDT) Bilirubin, Direct <0.1 <=0.4 mg/dL 12/09/2024 1:35 PM EDT [facility] Blood Structure of peripheral vein / Unknown Venipuncture / Unknown 12/09/2024 12:54 PM EDT 12/09/2024 1:05 PM EDT us Tadeo Dill MD LAB BLOOD ORDERABLES Final Resul t [facility] [address] [place] [address], [place] * (ABNORMAL) Bilirubin, Total (12/09/2024 12:54 PM EDT) Bilirubin, Total <0.2(L) 0.2 - 1.2 mg/dL 12/09/2024 1:35 PM EDT [employer] [facility] Blood Structure of peripheral vein / Unknown Venipuncture / Unknown 12/09/2024 12:54 PM EDT 12/09/2024 1:05 PM EDT Tadeo Dill MD LAB BLOOD ORDERABLES Final Resul t [facility] [address] [place] [address], * (ABNORMAL) Albumin (12/09/2024 12:54 PM EDT) Albumin 3.3(L) 3.5 - 5.2 g/dL 12/09/2024 1:[address] [facility] Blood Structure of peripheral vein / Unknown Venipuncture / Unknown 12/09/2024 12:54 PM EDT 12/09/2024 1:05 PM EDT Tadeo Dill MD LAB BLOOD ORDERABLES Final Resul t [facility] [address] [place] [address], from Last 3 Months Insurance BCBS OUT OF STATE PPO BCBS OUT OF STATE PPO Advance Directives Documents on File Type Date Recorded Patient Marble Worker Expl [facility] Health Care Proxy 12/17/2024 11:22 AM Care Teams Electrical Maintenance Mechanic Relationship Specialty Start Date End Date Asa Johnson [address] [place] [phone] PCP - General Internal Medicine 11/18/24
--- OUTSIDE RECORDS SUMMARY | 2025-02-13 23:13 | XMS_ITS | Encounter Summary ---
Author Organization [facility] Address [address] [address] Phone Care Team Providers Care Reclamation Supervisor Name Role Phone Alex Asa Hernández DO Unavailable Andre Dias MD Unavailable [phone] Asa Johnson DO Primary Care Provider [phone] Asa Johnson DO Primary Care Provider [phone] Reason for Visit * Reason Comments Medication Refill Encounter Details Date Type Department Care Team (Late st Contact Info) Description [facility] [address] [place] [address] 3rd Floor, [address] [place] [address] Demar Perdomo MD, MS 22 [facility], [address] [address] [email or web address] Medication Refill Social History Tobacco Use Types [...] Upcoming Encounters Date Type Department Care Team ([facility] st Contact Info) Description 03/28/2025 10:00 AM EST Office Visit CD Pulmonary, Allergy and Critical Care Medicine [address] [place] [address] Eyad Ramos MD [address] [place] [phone] [email or web address] 08/01/2025 9:00 AM EDT Office Visit [facility] [address] [place] [address] 3rd Floor, [address] [place] [address] Demar Perdomo MD, MS 22 [facility], [address] [place] [phone] documented as of this encounter Visit Diagnoses Diagnosis Medication refill- Primary Issue of repeat prescriptions documented in this encounter Care Teams Reclamation Supervisor Relationship Specialty Start Date End Date Asa Johnson DO [email or web address] PCP - General 03/09/17 03/28/24 Asa Johnson DO [address] [place] [address] PCP - General Internal Medicine 03/29/24 Asa Johnson DO [email or web address] Historical LMR Provider 12/19/16 Andre Dias MD [address] [place] [address] [email or web address] Historical LMR Provider 12/19/16 documented as of this encounter Additional Source Comments The information contained in this document represents components of the legal health record. It is not the complete legal health record.[facility]
--- OUTSIDE RECORDS SUMMARY | 2025-02-13 23:13 | XMS_ITS | Encounter Summary ---
Author Organization [facility] Address [address] [address] Phone Care Team Providers Care Wallpaperer Name Role Phone Asa Johnson DO Unavailable Lexie Tomlinson RECREATIONAL COUNSELOR Unavailable [phone] Miladis Mckeon RECREATIONAL COUNSELOR Unavailable [phone] Andre Dias MD Unavailable Alejandro Goldberg MD Unavailable [phone] Asa Johnson DO Primary Care Provider [phone] Asa Johnson DO Unavailable Asa Johnson DO Primary Care Provider [phone] Encounter Details Date Type Department Care Team (Late st Contact Info) Description 03/19/2019 Transcribe Orders [address] [address] Asa Johnson DO 179 [facility] [place] [address] Chronic kidney disease, stage IV (severe) (Primary [...] Description 03/28/2025 10:00 AM EST Office Visit [facility] Allergy [facility] Critical Care Medicine 10 [facility] [place] [address] Eyad Ramos MD 10 [facility] 2nd [place] [address] [email or web address] 08/01/2025 9:00 AM EDT Office Visit [facility] [address] [place] [address] 3rd Floor, [address] [place] [address] Demar Perdomo MD, MS 22 [facility], [address] [place] [address] [email or web address] documented as of this encounter Results * (ABNORMAL) Comprehensive metabolic panel (03/19/2019 10:13 AM EST) SODIUM 139 133 - 146 mmol/L [facility] POTASSIUM 4.1 3.3 - 5.1 mmol/L [facility] CHLORIDE 107 96 - 108 mmol/L [facility] CO2 19(L) 21 - 35 mmol/L [facility] BUN 47(H) 6 - 19 mg/dL [facility] CREATININE 2.90(H) 0.5 - 1.5 mg/dL [facility] GLUCOSE 87 70 - 99 mg/dL [facility] ALBUMIN 4.1 3.9 - 4.8 g/dL [facility] TOTAL PROTEIN 7.5 6.5 - 8.0 g/dL [facility] CALCIUM 9.4 8.4 - 10.3 mg/dL [facility] ALKALINE PHOSPHATASE 57 39 - 117 U/L [facility] TOTAL BILIRUBIN 0.2 0.0 - 1.2 mg/dL [facility] AST 17 0 - 37 U/L [facility] ALT 17 0 - 40 U/L [facility] GLOBULIN 3.4 1 - 4.8 g/dL [facility] EGFR 19(L) >59 mL/min/1.7 3m2 [facility] Comment:If patient is black, multiply result by 1.159. Estimated glomerular filtration rate calculated using the CKD-EPI equation. ANION GAP 17 10 - 20 mmol/L [facility] Blood 03/19/2019 10:1 3 AM EST 03/19/2019 12:40 PM EST us Asa A Bigda DO LAB BLOOD BKR ORDERABLES Final R esult Performing Organization Address City/[facility]/ZIP Co de Phone Number [address] [address] * (ABNORMAL) Uric acid (03/19/2019 10:13 AM EST) URIC ACID 8.3(H) 2.4 - 7.0 mg/dL [facility] Blood 03/19/2019 10:1 3 AM EST 03/19/2019 12:40 PM EST us Asa A Bigda DO LAB BLOOD BKR ORDERABLES Final R esult Performing Organization Address [facility]/ZIP Co de Phone Number [address] [address] * 25-OH vitamin D (03/19/2019 10:13 AM EST) 25 OH VIT D (TOTAL) 42 30 - 60 ng/mL [facility] Blood 03/19/2019 10:1 3 AM EST 03/19/2019 12:40 PM EST us Asa A Bigda DO LAB BLOOD BKR ORDERABLES Final R esult Performing Organization Address [facility] Co de Phone Number [address] [address] * Magnesium (03/19/2019 10:13 AM EST) MAGNESIUM 2.1 1.6 - 2.6 mg/dL [facility] Blood 03/19/2019 10:1 3 AM EST 03/19/2019 12:40 PM EST us Asa A Bigda DO LAB BLOOD BKR ORDERABLES Final R esult Performing Organization Address City/[facility]/ZIP Co de Phone Number [address] [address] * (ABNORMAL) Parathyroid hormone (PTH) (03/19/2019 10:13 AM EST) PARATHYROID HORMONE 71(H) 15 - 65 pg/mL [facility] Blood 03/19/2019 10:1 3 AM EST 03/19/2019 1:28 PM EST us [facility] LAB BLOOD BKR ORDERABLES Final R [facility] Performing Organization Address City/[facility] Co de Phone Number [address] [address] * (ABNORMAL) CBC and differential (03/19/2019 10:13 AM EST) WBC 12.71(H) 3.40 - 11.20 K/uL [facility] RBC 4.79 3.80 - 4.80 M/uL [facility] HGB 14.5 12.0 - 15.0 g/dL [facility] HCT 42.2 36.0 - 46.0 % [facility] PLT 284 130 - 400 K/uL [facility] MCV 88.1 79.0 - 98.0 fL [facility] MCH 30.3 27.0 - 34.8 pg [facility] MCHC 34.4 31.5 - 36.0 g/dL [facility] RDW 12.7 10.8 - 14.6 % [facility] MPV 10.4 9.4 - 12.4 fl [facility] NRBC 0.00 0.00 /100 WBCs [facility] ABSOLUTE NRBC 0.00 0.00 K/uL [facility] DIFF METHOD Auto [facility] NEUTS 79.1(H) 45.30 - 77.70 % [facility] LYMPHS 14.0 12.30 - 39.70 % [facility] MONOS 4.3 4.10 - 12.80 % [facility] EOS 1.1 0 - 7.2 % [facility] BASOS 0.6 0 - 2.80 % [facility] Granulocytes, immature (%) 0.9 0.0 - 0.9 % [facility] ABSOLUTE NEUTS 10.05(H) 1.40 - 7.70 K/uL [facility] ABSOLUTE LYMPHS 1.78 0.60 - 3.20 K/uL [facility] ABSOLUTE MONOS 0.55 0.11 - 0.59 K/uL [facility] ABSOLUTE EOS 0.14 0.01 - 0.50 K/uL [facility] ABSOLUTE BASOS 0.07 0.00 - 0.08 K/uL [facility] Granulocytes, immature 0.12(H) 0.00 - 0.05 K/uL [facility] Blood 03/19/2019 10:1 3 AM EST 03/19/2019 12:40 PM EST us Asa Johnson DO LAB BLOOD BKR ORDERABLES Final R esult Performing Organization Address City/State/[facility] Co de Phone Number [address] [address] documented in this encounter Visit Diagnoses Diagnosis Chronic kidney disease, stage IV (severe)- Primary Chronic kidney disease, Stage IV (severe) documented in this encounter Care Teams Wallpaperer Relationship Specialty Start Date End Date Asa Johnson DO PCP - General 03/09/17 03/28/24 Asa Johnson DO [address] [place] [address] PCP - General Internal Medicine 03/29/24 Asa Johnson DO Historical LMR Provider 12/19/16 Lexie Tomlinson NP [address] [place] [address] Historical LMR Provider 12/19/16 2 Miladis Mckeon NP 21 [place] [address] [email or web address] Historical LMR Provider 12/19/16 2 Andre Dias MD [address] [address] Historical LMR Provider 12/19/16 Alejandro Goldberg MD 61 [place] [address] Historical LMR Provider 12/19/16 2 Asa Johnson DO 179 [facility] [place] [address] Insurance Assigned Provider 04/07/18 07/23/22 documented as of this encounter Additional Source Comments The information contained in this document represents components of the legal health record. It is not the complete legal health record.[facility]
--- OUTSIDE RECORDS SUMMARY | 2025-02-13 23:13 | XMS_ITS ---
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
--- OUTSIDE RECORDS SUMMARY | 2025-02-13 23:13 | XMS_ITS | Encounter Summary ---
Author Organization [facility] Address [address] [address] Phone Care Team Providers Care Tannery Gummer Name Role Phone Asa Johnson DO Unavailable Andre Dias MD Unavailable [phone] Asa Johnson DO Primary Care Provider [phone] Reason for Visit * Reason Comments Medication Refill Encounter Details Date Type Department Care Team (Late st Contact Info) Description 01/07/2025 Refill [facility] [address] [place] [address] 3rd Floor, [address] [place] [address] Alejandro Torres MD [address] [place] [address], [address] [address] [email or web address] Medication Refill Social History Tobacco Use Types [...] Progress Notes * Isabelle Guaman MA - 01/07/2025 2:44 PM EST Rx reviewed documented in this encounter Plan of Treatment Upcoming Encounters Date Type Department Care Team (Late st Contact Info) Description 03/28/2025 10:00 AM EST Office Visit [facility] Pulmonary, Allergy and Critical Care Medicine [address] [place] [address] [place] [address] Eyad Ramos MD [address] [address] [email or web address] 08/01/2025 9:00 AM EDT Office Visit [facility] [address] [place] [address] 3rd Floor, [address] [place] [address] Demar Perdomo MD, MS 22 [facility], [address] [place] [address] [email or web address] documented as of this encounter Visit Diagnoses Diagnosis Moderate persistent asthma without complication documented in this encounter Care Teams Tannery Gummer Relationship Specialty Start Date End Date Asa Johnson DO 179 [place] [address] PCP - General Internal Medicine 03/29/24 Asa Johnson DO Historical LMR Provider 12/19/16 Andre Dias MD 22 [facility], [address] [address] [email or web address] Historical LMR Provider 12/19/16 documented as of this encounter Additional Source Comments The information contained in this document represents components of the legal health record. It is not the complete legal health record.[facility]
--- OUTSIDE RECORDS SUMMARY | 2025-02-13 23:13 | XMS_ITS | Clinical Summary ---
Author Organization [facility] Address [address] [address] Phone Care Team Providers Care Security Systems Manager Name Role Phone Asa Johnson DO Unavailable Andre Dias MD Unavailable [phone] Asa Johnson DO Primary Care Provider [phone] Allergies Active Allergy Reactions Criticality Noted Date [...] Additional Information Patient not taking.Reported on 07/19/2024 albuterol 90 mcg/actuation inhalerIndicatio ns:Asthma Inhale 2 [...] 2 (two) times a day. 5 Active fluticasone-umec lidin-vilanter (TRELEGY ELLIPTA) 200-62.5-25 mcg inhalerIndicatio ns:Moderate persistent asthma without complication Inhale 1 puff into the lungs daily. Rinse mouth, throat after to reduce the risk of thrush. 180 each 3 5 01/13/20 26 Active Active Problems Problem Noted Date Diagnosed Date High cholesterol 09/23/2022 09/23/2022 Essential hypertension 07/14/2020 3 Anemia in chronic kidney disease 03/19/2019 09/23/2022 Adrenal hyperplasia 12/13/2017 09/23/2022 Endometriosis 12/13/2017 09/23/2022 Stage 4 chronic kidney disease 12/13/2017 0 09/23/2022 Gout 12/13/2017 09/23/2022 Asthma 11/12/1979 09/23/2022 Encounters Date Type Department Care Team Description 01/09/2025 Telephone [facility] [address], [address] [place] [address] Demar Perdomo MD, MS 01/07/2025 Refill [facility] [address], [address] [place] [address] Alejandro Torres MD Medication Refill 11/14/2024 7:35 AM EDT - 11/14/2024 11:59 PM EDT Hospital Encounter [facility] [address] [place] [address] Asa Johnson DO Discharge Disposition: Home or Self Care from Last 3 Months Immunizations Immunization Administration [...] [facility] Pulmonary, Allergy and Critical Care Medicine [address] [place] [address] Eyad Ramos MD 10 [facility] 2nd [place] [address] [email or web address] 08/01/2025 9:00 AM EDT Office Visit [facility] [address] [place] [address] 3rd Floor, [address] [place], [place] [address] Demar Perdomo MD, MS 22 [facility], [address] [place] [address] [email or web address] Health Maintenance Due Date Last Done Comments [...] Additional history exists INFLUENZA VACCINE (#1) 2024 , 12/30/2020, 11/07/2019, Additional history exists COVID-19 VACCINE ( season) 2024 12/13/2021, 01/26/2021, 04/29/2020, Additional history [...] EDT Moderate persistent asthma, unspecified whether complicated BASIC METABOLIC PANEL (BMP) Routine 08/11/2023 8:57 AM EDT Radiological examination, [...] Recently Relevant to Health Maintenance Results * Pulmonary Function Test Reason for Exam: Asthma; Type of PFT Test: Spirometry with bronchodilator, Lung Volumes, DLCO; Performing Location: [facility] (11/14/2024 9:10 AM EDT) FEV1 2.39 liters FVC 3.00 liters FEV1/FVC 80 % TLC 3.93 liters DLCO 16.05 ml/mmHg sec Anatomical Region Laterality Modality Other Impressions 11/14/2024 9:10 AM EDT PULMONARY FUNCTION STUDIES Full pulmonary function studies were performed on this 48 y.o. year-old female for evaluation of asthma. Review of the medical record reveals that the patient is a never smoker. Prior pulmonary function studies are not available for comparison. SPIROMETRY: The FEV1 is normal at 2.39 L or 94% predicted. The FVC is normal at 3.00 L or 96% predicted. The FEV1/FVC ratio is normal at 80%. After the administration of a bronchodilator agent, there is no technically significant change. FLOW-VOLUME LOOPS: Evaluation of the flow-volume loops reveals normal morphology of both the inspiratory and expiratory limbs with no significant difference when comparing the tracings performed pre- and post-bronchodilator. LUNG VOLUME MEASUREMENTS BY PLETHYSMOGRAPHY: The total lung capacity is mildly impaired (z-score between -1.65 and -2.5) at 3.93 L or 78% predicted. The RV/TLC ratio is normal at 24%. DIFFUSION CAPACITY: The diffusion capacity is normal at 16.1 mL/mmHg sec or 80% predicted. Resting oxygen saturation is 96% on room air. IMPRESSION: Abnormal pulmonary function studies as evidenced by a mild restrictive ventilatory defect with normal diffusion capacity. Spirometry reveals no evidence of airflow limitation and no bronchodilator response. Technical Note: As of 01/16/2024, the [facility] Pulmonary Function Testing (PFT) Laboratory transitioned from using race-specific to using race-neutral equations for determining lung function predicted values for all persons. Due to this change some individuals previously classified as either normal or abnormal may now change from one to the other category without a true change in lung function. Such changes, as well as changes in severity classification, should be considered broadly and in their clinical context. Absolute values of lung function are unaffected. For further questions please contact the interpreting physician or PFT environmental laboratory technician. For further discussion of this issue please see Tommie naylor al [facility] 2022;207(1):978. Please Note: Not all PFT labs within, or outside of, our system will be transitioning to new reference equations at the same time. For this reason, please pay close attention to absolute values when comparing results done at different testing locations within or outside of our system. us Asa A Bigda DO PFT ORDERABLES Final Result * (ABNORMAL) Basic metabolic panel (08/11/2023 8:57 AM EDT) SODIUM 139 133 - 146 mmol/L [facility] CHLORIDE 109(H) 96 - 108 mmol/L [facility] POTASSIUM 4.2 3.3 - 5.1 mmol/L [facility] CO2 16(L) 21 - 35 mmol/L [facility] BUN 30(H) 6 - 19 mg/dL [facility] CREATININE 2.70(H) 0.5 - 1.5 mg/dL [facility] GLUCOSE 108(H) 70 - 99 mg/dL [facility] CALCIUM 9.1 8.4 - 10.3 mg/dL [facility] EGFR 21(L) >59 mL/min/1.7 3m2 [facility] Comment:Estimated glomerular filtration rate calculated using the CKD-EPI refit equation. ANION GAP 18 10 - 20 mmol/L [facility] Blood 08/11/2023 8:57 AM EDT 08/11/2023 8:58 AM EDT us Ferny Steele MD LAB BLOOD BKR ORDERABLES Final Result [address] [address] * (ABNORMAL) Lipid panel (05/27/2022 10:12 AM EDT) HDL 61 mg/dL [facility] Comment: Interpretation <40 mg/dL: Low HDL cholesterol (major risk factor for CHD) Greater than or equal to 60 mg/dL: High HDL cholesterol ( negative risk factor for CHD) HDL - cholesterol is affected by a number of factors, e.g. smoking, excerise, hormones, sex and age. CHOLESTEROL 196 0 - 240 mg/dL [facility] TRIGLYCERIDES 118 30 - 160 mg/dL [facility] LDL 111 50 - 129 mg/dL [facility] Comment: LDL levels in terms of risk for coronary heart disease: <100 mg/dL: Optimal 100-129 mg/dL: Near or above optimal 130-159 mg/dL: Borderline high 160-189 mg/dL: High >190 mg/dL: Very High CARDIAC RISK RATIO 3.2(L) 3.3 - 4.4 C [facility] Blood 05/27/2022 10:1 2 AM EDT 05/27/2022 10:18 AM EDT us Asa A Bigda DO LAB BLOOD BKR ORDERABLES Final R esult [facility] [address] [place], [place] [id number] * BI MAMMOGRAM SCREENING WITH TOMOSYNTHESIS WITH CAD (BILATERAL) (03/28/2019 8:22 AM EST) Anatomical Region Laterality Modality Breast Left, Breast Right, Breast Bilateral Bila teral Mammography 03/28/2019 8:40 AM EST Impressions 03/28/2019 8:42 AM EST No mammographic evidence of malignancy. Recommend routine annual surveillance. BI-RADS CATEGORY: 2 - Benign finding. DENSITY: There are scattered fibroglandular densities. POS - [id number] Narrative 03/28/2019 8:42 AM EST 43-year-old female [...] There are scattered fibroglandular densities. POS - [id number] Tracie Myers MD IMG MG EXAMS Final Result * (ABNORMAL) Glucose tolerance test, 2 hr (02/06/2019 7:37 AM EST) FASTING GLUCOSE 100 70 - 110 mg/dL [facility] ONE HR GLUCOSE 184(H) 70 - 99 mg/dL [facility] TWO HR GLUCOSE 122(H) 70 - 99 mg/dL [facility] Blood 02/06/2019 7:37 AM EST 02/06/2019 9:57 AM EST Tracie Myers MD LAB BLOOD BKR ORDERABLES Final R esult [address] [address] * Pap Smear (10/31/2018 12:00 AM EDT) 10/31/2018 11/01/2018 10: 13 AM EDT Narrative SEE NARRATIVE - 11/08/2018 12:12 PM EDT [address] [address] Drum Plater: Kemi Guajardo MD CLUB CAR ATTENDANT Cytology Report FINAL DIAGNOSIS A. PAP SMEAR [...] 52, 56, 58, 59, 66, 68) by [facility] HR-HPV analysis. Clinical correlation is advised. This HPV test was performed at [facility], [address] [place] [address]. This test has been FDA approved for [facility] cervical cytology specimens. The accuracy and precision of this test for all other specimen sources has been verified in the Cytopathology Laboratory of the [facility] and has not been cleared or approved by the U.S. Food and Drug Administration. Clinical correlation is advised. CLINICAL HISTORY Date of Last Menstrual Period: Not Provided Menstrual History: Unknown Other Clinical Conditions: Screening Pap SPECIMEN SOURCE A: PAP SMEAR (SUREPATH) CE Patient Name: RJ GREY : 1975 (Age: 42) Sex: F Institution: [facility] Location: [facility] Date of Collection: 10/31/2018 Date of Reported: 11/08/2018 12:12 Results to: Tracie Myers MD Tracie Myers MD CYTOLOGY ORDERABLES Final Result SEE NARRATIVE from Last 3 Months or Most Recently Relevant to Health Maintenance Insurance PPO OUT OF [facility] PPO OUT OF [facility] PPO CROSS OUT OF [facility] PPO OUT [facility] PPO PPO Care Teams Security Systems Manager Relationship Specialty Start Date End Date Asa Johnson DO [address] [place] [address] PCP - General Internal Medicine 03/29/24 Asa Johnson DO Historical LMR Provider 12/19/16 Andre Dias MD [address] [place] [address] Historical LMR Provider 12/19/16 Additional Source Comments The information contained in this document represents components of the legal health record. It is not the complete legal health record.[facility]
--- OUTSIDE RECORDS SUMMARY | 2025-02-13 23:13 | XMS_ITS | Encounter Summary ---
Author Organization [facility] Address [address] [address] Phone Care Team Providers Care Electromagnet Crane Operator Name Role Phone Alex Asa Hernández DO Unavailable Andre Dias MD Unavailable [phone] Asa Johnson DO Primary Care Provider [phone] Asa Johnson DO Primary Care Provider [phone] Reason for Visit * Reason Comments Medication Refill Encounter Details Date Type Department Care Team (Late st Contact Info) Description 03/07/2024 [facility] [address] [place] [address] 3rd Floor, [address] [place] [address] Alejandro Torres MD [address] [place] [address], [address] [address] [email or web address] Medication Refill Social History Tobacco Use Types [...] Description 03/28/2025 10:00 AM EST Office Visit [facility] [address] [place] [address] Eyad Ramos MD [address] [address] 08/01/2025 9:00 AM EDT Office Visit [facility] [address] [place] [address] 3rd Floor, [address] [place] [address] Demar Perdomo MD, MS 22 [facility], [address] [place] [address] documented as of this encounter Visit Diagnoses Diagnosis Moderate persistent asthma without complication documented in this encounter Care Teams Electromagnet Crane Operator Relationship Specialty Start Date End Date Asa Johnson DO PCP - General 03/09/17 03/28/24 Asa Johnson DO 179 [facility] [place] [address] PCP - General Internal Medicine 03/29/24 Asa Johnson DO Historical LMR Provider 12/19/16 Andre Dias MD 22 [facility], [address] [place] [address] [email or web address] Historical LMR Provider 12/19/16 documented as of this encounter Additional Source Comments The information contained in this document represents components of the legal health record. It is not the complete legal health record.[facility]
--- OUTSIDE RECORDS SUMMARY | 2025-02-13 23:13 | XMS_ITS | Encounter Summary ---
Author Organization [facility] Address [address] [place] [id number] Phone Care Team Providers Care Client Insights Consultant Name Role Phone Longpastora, Asa Hernández DO Unavailable Lexie Tomlinson STRAW HAT BRIM RAISER OPERATOR Unavailable [phone] Miladis Mckeon STRAW HAT BRIM RAISER OPERATOR Unavailable [phone] Andre Dias MD Unavailable [phone] Alejandro Goldberg MD Unavailable Bigda, Asa A DO Primary Care Provider [phone] Bigda, Asa A DO Unavailable Bigda, Asa A DO Unavailable Bigda, Asa A DO Primary Care Provider [phone] Encounter Details Date Type Department Care Team (Latest Contact Info) Description 07/20/2017 Transcribe Orders [facility] [address] [id number] Juan R Presley MD 51 [facility], [address] [place], [place] [id number] [email or web address] Nephrogenous proteinuria (Primary Dx); Chronic kidney disease, [...] Description 03/28/2025 10:00 AM EST Office Visit [facility], Allergy and Critical Care Medicine [address] [facility] [place] [address] Eyad Ramos MD 10 [facility] 2nd [place] [address] [email or web address] 08/01/2025 9:00 AM EDT Office Visit [facility] [address] [place] [address] 3rd Floor, [address] [place] [address] Demar Perdomo MD, MS 22 [facility], [address] [address] [email or web address] documented as of this encounter Results * (ABNORMAL) Total protein creatinine ratio, random urine (07/20/2017 11:57 AM EDT) [facility] URINE TOTAL PROTEIN 49.4 mg/dL [facility] URINE CREATININE 164 mg/dL [facility] URINE TP CRE RATIO 0.30(H) 0 - 0.[address] [facility] Urine (Urine) 07/20/2017 11: 57 AM EDT 07/20/2017 12:03 PM EDT us Juan R Presley MD LAB URINE ORDERABLES Final Re sult [facility] [address] [place] [address] * (ABNORMAL) CBC and differential (07/20/2017 11:57 AM EDT) Pathologist [facility] WBC 9.89 3.40 - 11.20 K/uL [facility] RBC 4.62 3.80 - 4.80 M/uL [facility] HGB 13.8 12.0 - 15.0 g/dL [facility] HCT 40.3 36.0 - 46.0 % [facility] PLT 257 130 - 400 K/uL [facility] MCV 87.2 79.0 - 98.[address] [facility] MCH 29.9 27.0 - 34.[address] [facility] MCHC 34.2 31.5 - 36.0 g/dL [facility] RDW 12.0 10.8 - 14.6 % [facility] MPV 11.8 9.4 - 12.[address] [facility] NRBC 0.00 /[address] [facility] ABSOLUTE NRBC 0.00 K/uL [facility] DIFF METHOD Auto [facility] NEUTS 62.8 45.30 - 77.70 % [facility] LYMPHS 23.1 12.30 - 39.70 % [facility] MONOS 7.6 4.10 - 12.80 % [facility] EOS 5.2 0 - 7.2 % [facility] BASOS 0.7 0 - 2.80 % [facility] Granulocytes, immature (%) 0.6 0.0 - 0.9 % [facility] ABSOLUTE NEUTS 6.22 1.40 - 7.70 K/uL [facility] ABSOLUTE LYMPHS 2.28 0.60 - 3.20 K/uL [facility] ABSOLUTE MONOS 0.75(H) 0.11 - 0.59 K/uL [facility] ABSOLUTE EOS 0.51(H) 0.01 - 0.50 K/uL [facility] ABSOLUTE BASOS 0.07 0.00 - 0.08 K/uL [facility] Granulocytes, immature 0.06(H) 0.00 - 0.05 K/uL [facility] Blood 07/20/2017 11:5 7 AM EDT 07/20/2017 12:02 PM EDT us Juan R Presley MD LAB BLOOD BKR ORDERABLES Fiorella brown Result [address] [address] * (ABNORMAL) Albumin (07/20/2017 11:57 AM EDT) ALBUMIN 3.5(L) 3.9 - 4.8 g/dL [facility] Blood 07/20/2017 11:5 7 AM EDT 07/20/2017 12:02 PM EDT us Juan R Presley MD LAB BLOOD BKR ORDERABLES Fiorella l Result [address] [address] * Magnesium (07/20/2017 11:57 AM EDT) MAGNESIUM 1.8 1.6 - 2.6 mg/dL [facility] Blood 07/20/2017 11:5 7 AM EDT 07/20/2017 12:02 PM EDT Juan R Presley MD LAB BLOOD BKR ORDERABLES Fiorella l Result [address] [address] * Phosphorus (07/20/2017 11:57 AM EDT) PHOSPHORUS 2.9 2.7 - 4.5 mg/dL [facility] Blood 07/20/2017 11:5 7 AM EDT 07/20/2017 12:02 PM EDT Juan R Presley MD LAB BLOOD BKR ORDERABLES Fiorella l Result [address] [address] * (ABNORMAL) Basic metabolic panel (07/20/2017 11:57 AM EDT) SODIUM 142 133 - 146 mmol/L [facility] CHLORIDE 106 96 - 108 mmol/L [facility] POTASSIUM 3.7 3.3 - 5.1 mmol/L [facility] CO2 19(L) 21 - 35 mmol/L [facility] BUN 41(H) 6 - 19 mg/dL [facility] CREATININE 2.50(H) 0.5 - 1.5 mg/dL [facility] GLUCOSE 74 70 - 99 mg/dL [facility] CALCIUM 9.3 8.4 - 10.3 mg/dL [facility] EGFR 23(L) >59 mL/min/1.[address] [facility] Comment:If patient is black, multiply result by 1.159. The eGFR calculation has changed from the MDRD equation to the CKD-EPI equation as of May 09, 2017. ANION GAP 21(H) 10 - 20 mmol/L [facility] Blood 07/20/2017 11:5 7 AM EDT 07/20/2017 12:02 PM EDT us Juan R Presley MD LAB BLOOD BKR ORDERABLES Fiorella l Result [address] [address] * (ABNORMAL) Parathyroid hormone (PTH) (07/20/2017 11:57 AM EDT) PARATHYROID HORMONE 80(H) 15 - 65 pg/mL [facility] Blood 07/20/2017 11:5 7 AM EDT 07/20/2017 12:02 PM EDT us Juan R Presley MD LAB BLOOD BKR ORDERABLES Fiorella l Result [address] [address] documented in this encounter Visit Diagnoses Diagnosis Nephrogenous proteinuria- Primary Chronic kidney disease, stage IV (severe) Chronic kidney disease, Stage IV (severe) 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,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) Anemia in end-stage renal disease Anemia in chronic kidney disease documented in this encounter Care Teams Client Insights Consultant Relationship Specialty Start Date End Date Alex Asa HernándezDO PCP - General 03/09/17 03/28/24 Asa Johnson DO [address] [facility] [place] [address] PCP - General Internal Medicine 03/29/24 Asa Johnson DO Historical LMR Provider 12/19/16 Lexie Tomlinson STRAW HAT BRIM RAISER OPERATOR [address] [place] [phone] Historical LMR Provider 12/19/16 2 Miladis Mckeon NP [address] [place] [address] [email or web address] Historical LMR Provider 12/19/16 2 Andre Dias MD [address] [address] Historical LMR Provider 12/19/16 Alejandro Goldberg MD [address] [place] [address] Historical LMR Provider 12/19/16 2 Asa Johnson DO 179 [facility] [place] [address] Insurance Assigned Provider 12/09/17 03/10/18 Asa Johnson DO [address] [place] [address] [email or web address] Insurance Assigned Provider 04/07/18 07/23/22 documented as of this encounter Additional Source Comments The information contained in this document represents components of the legal health record. It is not the complete legal health record.[facility]
--- OUTSIDE RECORDS SUMMARY | 2025-02-13 23:14 | XMS_ITS | Encounter Summary ---
Author Organization [facility] Address [address] [place] [address] Phone Care Team Providers Care Punch Finisher Name Role Phone Asa Johnson DO Unavailable Lexie Tomlinson FAVOR MAKER Unavailable [phone] Miladis Mckeon FAVOR MAKER Unavailable Andre Dias MD Unavailable [phone] Alejandro Goldberg MD Unavailable [phone] Asa Johnson DO Primary Care Provider [phone] Asa Johnson DO Unavailable Alex, Asa Hernández DO Primary Care Provider [phone] Encounter Details Date Type Department Care Team (Late st Contact Info) Description 03/22/2018 Ancillary Orders [facility] Imaging [address] [place] [address] System, Provider Not In, PhD [address] [address] Social History Tobacco Use Types Packs/Day Years [...] Description 03/28/2025 10:00 AM EST Office Visit [facility] Pulmonary, Allergy and Critical Care Medicine 10 [facility] [place] [address] Eyad Ramos MD 10 [facility] [address] [place] [address] 08/01/2025 9:00 AM EDT Office Visit [facility] 22 [facility] 3rd Floor, [address] [place] [address] Demar Perdomo MD, MS 22 [facility], [address] [place] [address] [email or web address] documented as of this encounter Results * [...] on filedocumented in this encounter Care Teams Punch Finisher Relationship Specialty Start Date End Date Asa Johnson DO PCP - General 03/09/17 03/28/24 Asa Johnson DO 179 [facility] [place] [address] [place] [address] PCP - General Internal Medicine 03/29/24 Asa Johnson DO Historical LMR Provider 12/19/16 Lexie Tomlinson FAVOR MAKER [address] [place] [phone] Historical LMR Provider 12/19/16 2 Miladis Mckeon NP 21 [place] [address] [email or web address] Historical LMR Provider 12/19/16 2 Andre Dias MD [address] [address] Historical LMR Provider 12/19/16 Alejandro Goldberg MD 61 [place] [address] Historical LMR Provider 12/19/16 2 Asa Johnson DO [address] [place] [address] Insurance Assigned Provider 04/07/18 07/23/22 documented as of this encounter Additional Source Comments The information contained in this document represents components of the legal health record. It is not the complete legal health record.[facility]
--- OUTSIDE RECORDS SUMMARY | 2025-02-13 23:14 | XMS_ITS | Encounter Summary ---
Author Organization [facility] Address [address] [address] Phone Care Team Providers Care Organ Pipe Finisher Name Role Phone Asa Johnson DO Unavailable Lexie Tomlinson JAVA XML DEVELOPER Unavailable [phone] Miladis Mckeon JAVA XML DEVELOPER Unavailable [phone] Andre Dias MD Unavailable [phone] Alejandro Goldberg MD Unavailable [phone] Asa Johnson DO Primary Care Provider [phone] Asa Johnson DO Unavailable Asa Johnson DO Primary Care Provider [phone] Encounter Details Date Type Department Care Team (Late st Contact Info) Description 05/15/2019 Transcribe Orders Virtual Department [address] [place] [address] Asa Johnson DO 179 [facility] [place] [address] [place] [address] Chronic low back pain, unspecified back pain [...] Description 03/28/2025 10:00 AM EST Office [place] [facility], Allergy and Critical Care Medicine [address] [place] [address] Eyad Ramos MD 10 [facility] 2nd [place] [address] 08/01/2025 9:00 AM EDT Office Visit [facility] [address] [place] [address] [facility] [facility], [address] [place] [address] Demar Perdomo MD, MS 22 [facility], [address] [address] [email or web address] documented as of this [...] present documented in this encounter Care Teams Organ Pipe Finisher Relationship Specialty Start Date End Date Asa Johnson DO PCP - General 03/09/17 03/28/24 Asa Johnson DO 179 [place] [address] PCP - General Internal Medicine 03/29/24 Asa Johnson DO Historical LMR Provider 12/19/16 Lexie Tomlinson NP [address] [place] [phone] Historical LMR Provider 12/19/16 2 Miladis Mckeon NP 21 [place] [address] [email or web address] Historical LMR Provider 12/19/16 2 Andre Dias MD [address] [address] [email or web address] Historical LMR Provider 12/19/16 Alejandro Goldberg MD [address] [place] [address] Historical LMR Provider 12/19/16 2 Asa Johnson DO 179 [place] [address] [email or web address] Insurance Assigned Provider 04/07/18 07/23/22 documented as of this encounter Additional Source Comments The information contained in this document represents components of the legal health record. It is not the complete legal health record.[facility]
--- OUTSIDE RECORDS SUMMARY | 2025-02-13 23:14 | XMS_ITS | Data Portability ---
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 bp has been stable and follows dr montero Chronic ki dney disease stage 4 035733087 N18.4 needs lab shes to look into erythropoi etin inj Hyperlipidemia 59823984 E78.5 stable Asthma 142785818 J45.90 9 stable no issues has been following dr flores and doing welll on the BREO Anemia in chronic kidney disease 131946443 D63.1 will rechk and send results Mood disorder 60114441 F 39 00425 Asa Aleman [facility] Internal Medicine [address] [facility] [address], [place] [facility] [place] [address] 05/27/2022 09:01:45 05/27/2022 11:29:21 Hypertensive disorder 64137634 I10 bp has been stable and follows dr montero Chronic ki dney disease stage 4 827853667 N18.4 needs lab shes to look into erythropoi etin inj Anemia in chronic kidney disease 460573030 D63.1 will rechk and send results as she has not gotten the erythropoi etin inj Hyperaldosteronism [address] montero has been stable Mood disorder 14303230 F 39 [id number] Asa Aleman [facility] Internal Medicine [address] [facility] [address], ite [facility] [place] [address] 01/20/2023 08:10:15 01/20/2023 12:06:36 Anemia in chronic kidney disease 854921062 D63.1 will rechk and send results as she has not gotten the erythropoi etin inj Hyperlipidemia 07794146 E78.5 stable Hypertensive disorder 38 064159 I10 bp has been stable and follows dr gotti are good Hyperaldosteronism [address] montero has been stable Chronic ki dney disease stage 4 022095014 N18.4 needs lab shes to look into erythropoi etin inj Bilateral plantar fasciitis 8880578494 7825660 M72.2 will need surgerywil l need to go on fmla [id number] Asa Aleman [facility] Internal Medicine [address] [facility] [address],[place] [address] 11/01/2023 09:14:19 11/01/2023 15:25:25 Hyperaldosteronism 78321251 E26.89 stable Hyperlipidemia 89413181 E78.5 stable Hypertensive disorder 38 911807 I10 bp has been stable and follows dr kylah christy Chronic ki dney disease stage 4 517714922 N18.4 stable Endometrio sis (clinical) 483363284 N80.02 will try to have wegovy go through underneath alt diagnosis given it's impact on her weight [id number] Asa Aleman [facility] Internal Medicine [address] [facility] [address], [place] [address] 06/07/2024 10:08:39 06/07/2024 11:53:01 Depression screening 019668488 Z13.31 pos Chronic ki dney disease stage 4 713421086 N18.4 needs lab shes to look into erythropoi etin inj Gout 01590424 M10.9 Hypertensive disorder 38 723778 I10 bp has been stable and follows dr shen sun add propranolo l for tremor Essential tremor 2632257 09 G25.0 will start propranolo l Anxiety 29842097 F41.9 [id number] Asa Aleman [facility] Internal Medicine [address] [facility] [address] 7 07/05/2024 14:23:03 07/05/2024 15:29:24 Gout 55118272 M10.9 no recent attacks Hyperlipidemia 70088439 E78.5 stable Hypertensive disorder 38 126882 I10 bp has been stable and follows holli sun add propranolo l for tremor Chronic ki dney disease stage 4 657736822 N18.4 needs lab shes to look into erythropoi etin inj will be seeing renal next week [id number] Asa Aleman [facility] Internal Medicine [address] [facility] [address],[place] [address] 09/20/2024 10:29:24 09/20/2024 11:42:58 Chronic kidney disease stage 4 378212911 N18.4 needs lab shes to look into erythropoi etin inj will be seeing renal next week Hyperaldosteronism [address] montero has been stable Hyperlipidemia 97234327 E78.5 stabledisc ussed use and mixture of semaglut that she is starting herself warned her to start low and do not over use told her to use an extremely low dose due to kidney disease told must have lab work in follow up to make sure there is no secondary problem with its useshe agrees to use 2.5mg dose Hypertensive disorder 38 924165 I10 bp has been stable and follows [facility] raegan sun add propranolo l for tremor Depression screening 171 913077 Z13.31 pos [id number] Asa Aleman DO [facility] Internal Medicine [address] [facility] [address],[place] [address] 11/01/2024 09:11:46 11/01/2024 09:47:57 Depression screening 649892778 Z13.31 pos Hypertensive disorder 38 613767 I10 bp has been stable and follows [facility] are corinne add propranolo l for tremor Chronic ki dney disease stage 4 140523579 N18.4 needs lab shes to look into erythropoi etin inj will be seeing renal next week Anemia in chronic kidney disease 944220216 D63.1 will rechk and send results as she has not gotten the erythropoi etin inj Secondary hyperparathyroidism 30494780 N25.81 gets lab done by renal Insomnia 776933446 F51.0 9 [id number] Health Concerns Section Related Observation LastModified by Organization Detai ls LastModified Time None Recorded Concern Status LastModified by Organization Details LastModified Time None Recorded Advance Directives Directive None Recorded Payers Insurance Date Sequence Insurance Name Policy Number Policy Guerrero Covered Member ID Guerrero Member ID Guarantor Name 10/31/2024 1 [place] [facility] Shannon York geon [id number] Shannon Segal 10/31/2024 1 BC-JIM (O) [id number] Shannon Segal [id number] Shannon Segal 10/31/2024 1 [place] [facility] PRIOR TO 06/04/2022 - [facility] (MEDICAID) Shannon [facility] [id number] Shannon Segal Notes Date Note Type Note Provider Name and Address Organization Details Recorded Time 11/01/19 24 text/htm l ROS as noted in the HPI c/o would like to discuss weight loss meds The patient is participating in this appointment via telemedicine communication with a phone call/video calling service (Doxy)The patient consents to use of these platforms in place of an in-person appointment due to either sick symptoms the patient is presenting with or current office closure due to COVID exposure in order to keep our office staff and patients safe patient has h/x of hyperaldosteronism, CKD, HTN, and endometriosis which are impacted by her weightdiscussed options, will try to put through wegovy due to this to help prevent complications in regards to her current problem listhas a harder time losing weight due to cortisol and aldosterone dysfunction and kidney disease will f/u with patient if more information is needed has spent over $1000 on treatments, diet plans, diets, supplements, and hypnosis without successful weight losscurrent BMI is 37.1 insurance may not approve this medication SÁNCHEZ TAYLOR [address] [place], [address], [facility] Internal Medicine 11/01/2023 14:07:07 06/08/19 25 text/htm l ROS as noted in the HPI long discussionhas been extremely stressed as of latestates that she is getting episodes of severe dizziness as welllong discussion re wgt loss needed etcshe also has a essential tremor Asa Aleman DO [address] [place], [address], [facility] Internal Medicine 06/07/2024 10:58:50 07/06/19 25 text/htm l Care Management - HypertensionReported by PatientHPIFor self care, patient reportsnot under emotional stress. For severity, patient reportssymptoms are improvinganddoes not interfere with daily activities. For associated symptoms, patient reportsno dizziness,no lightheadedness,no chest pain,no shortness of breath,no palpitations,no edema,no calf muscle cramps,no blurred vision,no confusion,no headaches, andno fatigue. Care Management - HyperlipidemiaReported by PatientHPIFor control, patient reportsusually well controlled,improving, andat goal. For complications, patient reportsno coronary artery disease,no heart attack,no cardiovascular disease,no pancreatitis, andno stroke.ROS as noted in the HPI here for rechk and is doing okexcept for her stress at homewill be seeing renal next weekrelates dizziness is doing ok but has only taken 3 tabs of lorazepam Asa Aleman, DO [address] [place], [address], [facility] Internal Medicine 07/05/2024 14:56:11 09/21/19 25 text/htm l Care Management - HypertensionReported by PatientHPIFor self care, patient reportsnot under emotional stress. For severity, patient reportssymptoms are improvinganddoes not interfere with daily activities. For associated symptoms, patient reportsno dizziness,no lightheadedness,no chest pain,no shortness of breath,no palpitations,no edema,no calf muscle cramps,no blurred vision,no confusion,no headaches, andno fatigue. Care Management - HyperlipidemiaReported by PatientHPIFor control, patient reportsusually well controlled,improving, andat goal. For complications, patient reportsno coronary artery disease,no heart attack,no cardiovascular disease,no pancreatitis, andno stroke.ROS as noted in the HPI long discussuion re semaglut use she has purchased her own here for rechk and is doing okexcept for her stress at homewill be seeing renal next weekrelates dizziness is doing ok but has only taken 3 tabs of lorazepam Asa Alvesda, DO [address] [place], [address], [facility] Internal Medicine 09/20/2024 11:37:52 11/02/19 25 text/htm l Care Management - HypertensionReported by PatientHPIFor self care, patient reportsnot under emotional stress. For severity, patient reportssymptoms are improvinganddoes not interfere with daily activities. For associated symptoms, patient reportsno dizziness,no lightheadedness,no chest pain,no shortness of breath,no palpitations,no edema,no calf muscle cramps,no blurred vision,no confusion,no headaches, andno fatigue.ROS as noted in the HPI under a lot of stressrelates that she is under financial stress foreclosure on houselost 40k to mortgage scamfamily member with ca Asa Aleman, DO [address] [facility], [place], [address], [facility] Internal Medicine 11/01/2024 09:36:39 OBGyn Episode No OBEpisode recorded.
--- OUTSIDE RECORDS SUMMARY | 2025-02-13 23:14 | XMS_ITS | Encounter Summary ---
Author Organization [facility] Address [address] [place] [address] Phone Care Team Providers Care Public Health Social Worker Name Role Phone LongAsa guillory DO Unavailable Andre Dias MD Unavailable [phone] [place], Asa Hernández DO Primary Care Provider [phone] Asa Johnson DO Unavailable Alex, Asa A DO Primary Care Provider [phone] Encounter Details Date Type Department Care Team (Late st Contact Info) Description 05/24/2021 Procedure Pass [facility], Ct Scan - [address] [address] Social History Tobacco Use Types Packs/Day Years [...] 2:55 PM EDT Fred Dunlap, MARICEL * [place] Suicide Severity Rating Scale (Screener/Recent Self-Report) Question Answer Date of Assessment Author 1. Wish to be (Past 1 Month) No 05/24/2021 2:55 PM EDT Fred Vazquez, MARICEL 2. Non-Specific Active Suicidal Thoughts (Past 1 Month) No 05/24/2021 2:55 PM EDT Fred Vazquez, MARICEL 6. Suicidal Behavior (Lifetime) No 05/24/2021 2:55 PM EDT Fred Vazquez RN documented as of this encounter Plan of Treatment Upcoming Encounters Date Type Department Care Team (Late st Contact Info) Description 03/28/2025 10:00 AM EST Office Visit [facility] Pulmonary, Allergy and Critical Care Medicine [address] [place] [address] Eyad Ramos MD [address] [place] [address] [email or web address] 08/01/2025 9:00 AM EDT Office Visit [facility] [address] [place] [address] 3rd Floor, [address] [place] [address] Demar Perdomo MD, MS [address] [facility], [address] [place] [address] [email or web address] documented as of this encounter Visit Diagnoses Not on filedocumented in this encounter Care Teams Public Health Social Worker Relationship Specialty Start Date End Date Asa Johnson DO PCP - General 03/09/17 03/28/24 Asa Johnson DO [address] [place] [address] PCP - General Internal Medicine 03/29/24 Asa Johnson DO Historical LMR Provider 12/19/16 Andre Dias MD [address] [place] [address] Historical LMR Provider 12/19/16 Asa Johnson DO [address] [place] [address] [place] [address] Insurance Assigned Provider 04/07/18 07/23/22 documented as of this encounter Additional Source Comments The information contained in this document represents components of the legal health record. It is not the complete legal health record.[facility]
--- OUTSIDE RECORDS SUMMARY | 2025-02-13 23:14 | XMS_ITS | Encounter Summary ---
Author Organization [facility] Address [address] [place] [address] Phone Care Team Providers Care Spring Salvage Worker Name Role Phone AlexAsa DO Unavailable Lexie Tomlinson CUT OFF MACHINE HELPER Unavailable [phone] Miladis Mckeon CUT OFF MACHINE HELPER Unavailable [phone] Andre Dias MD Unavailable [phone] Alejandro Goldberg MD Unavailable [phone] Asa Johnson DO Primary Care Provider [phone] Asa Johnson DO Unavailable Asa Johnson DO Primary Care Provider [phone] Encounter Details Date Type Department Care Team (Late st Contact Info) Description 04/16/2020 Procedure Pass [facility], Ct Scan - [address] [address] Social History Tobacco Use Types Packs/Day Years [...] 04/16/2020 4:31 PM Carola Dotson RN * [place] Suicide Severity Rating Scale (Screener/Recent Self-Report) Question [...] Upcoming Encounters Date Type Department Care Team ([facility] st Contact Info) Description 03/28/2025 10:00 AM EST Office Visit [facility] Pulmonary, Allergy and Critical Care Medicine [address] [place] [address] Eyad Ramos MD [address] [place] [address] [email or web address] 08/01/2025 9:00 AM EDT Office Visit [facility] [address] [place] [address] 3rd [facility], [address] [place] [address] Demar Perdomo MD, MS [address] [place] [address], [address] [address] [email or web address] documented as of this encounter Visit Diagnoses Not on filedocumented in this encounter Care Teams Spring Salvage Worker Relationship Specialty Start Date End Date Asa Johnson DO PCP - General 03/09/17 03/28/24 Asa Johnson DO [address] [facility] [place] [address] PCP - General Internal Medicine 03/29/24 Asa Johnson DO Historical LMR Provider 12/19/16 Lexie Tomlinson CUT OFF MACHINE HELPER [address] [place] [address] Historical LMR Provider 12/19/16 2 Miladis Mckeon NP [address] [place] [address] [email or web address] Historical LMR Provider 12/19/16 2 Andre Dias MD [address] [address] Historical LMR Provider 12/19/16 Alejandro Goldberg MD [address] [place] [address] Historical LMR Provider 12/19/16 2 Asa Johnson DO [address] [place] [address] [place] [address] Insurance Assigned Provider 04/07/18 07/23/22 documented as of this encounter Additional Source Comments The information contained in this document represents components of the legal health record. It is not the complete legal health record.[facility]
--- OUTSIDE RECORDS SUMMARY | 2025-02-13 23:14 | XMS_ITS | Encounter Summary ---
Author Organization [facility] Address [address] [address] Phone Care Team Providers Care Food Service Name Role Phone Asa Johnson DO Unavailable Lexie Tomlinson CORE CUTTER Unavailable Miladis Mckeon CORE CUTTER Unavailable Andre Dias MD Unavailable [phone] Alejandro Goldberg MD Unavailable [phone] Asa Johnson DO Primary Care Provider [phone] Alex, Asa Hernández DO Unavailable Asa Johnson DO Unavailable Alex, Asa Hernández DO Primary Care Provider [phone] Encounter Details Date Type Department Care Team (Late st Contact Info) Description 03/09/2018 Ancillary Orders Virtual Department [address] [place] [address] Asa Johnson DO [address] [facility] [place] [address] Visit for screening mammogram Social History Tobacco [...] Description 03/28/2025 10:00 AM EST Office Visit [facility] Pulmonary, Allergy and Critical Care Medicine [address] [facility] [place] [address] Eyad Ramos MD [address] [facility] 2nd [place] [address] [email or web address] 08/01/2025 9:00 AM EDT Office Visit [facility] [address] 3rd Floor, [address] [place] [address] Demar Perdomo MD, MS [address] [facility], [address] [place] [address] [email or web address] documented as of this encounter Results * [...] mammogram documented in this encounter Care Teams Food Service Relationship Specialty Start Date End Date Asa Johnson DO PCP - General 03/09/17 03/28/24 Asa Johnson DO [address] [place] [address] PCP - General Internal Medicine 03/29/24 Asa Johnson DO Historical LMR Provider 12/19/16 Lexie Tomlinson CORE CUTTER [address] [place] [address] Historical LMR Provider 12/19/16 2 Miladis Mckeon NP [address] [place] [address] [email or web address] Historical LMR Provider 12/19/16 2 Andre Dias MD [address] [place] [address] [email or web address] Historical LMR Provider 12/19/16 Alejandro Goldberg MD [address] [place] [address] Historical LMR Provider 12/19/16 2 Asa Johnson DO [address] [place] [address] Insurance Assigned Provider 12/09/17 03/10/18 Asa Johnson DO [address] [place] [address] Insurance Assigned Provider 04/07/18 07/23/22 documented as of this encounter Additional Source Comments The information contained in this document represents components of the legal health record. It is not the complete legal health record.[facility]
--- OUTSIDE RECORDS SUMMARY | 2025-02-13 23:14 | XMS_ITS | Patient Health Record ---
Author Organization [facility] Address [address] [place] [address] Care Team Providers Care Database Developer Name Role Phone Asa Johnson Primary Care Provider Demar Lockhart [phone] Allergies Allergen (clinical drug ingredient) Drug/Non Drug Allergy documented on EMR Reaction Allergy Type Onset Date Status Vicodin Unknown Drug Allergy Active Latex Latex Unknown Allergy Active Reason For Referral No Information Medications Medication SIG (Take, Route, Frequency, Duration) Notes Start Date End Date Status Tart Crespo Ultra 1200 MG Capsule as directed Orally Active Multivitamin Adult - Tablet 1 tablet Ora lly Once a day; Duration: 30 day(s) Active Simvastatin 40 MG Tablet TAKE ONE TABLET BY MOUTH EVERY DAY Oral; Duration: 30 Active Garlic 1500 Active Furosemide 20 MG Tablet TAKE 1 TABLET BY MOUTH 2 TIMES A WEEK :) Oral; Duration: 28 Active Allopurinol 100 MG Tablet TAKE ONE TABLE T BY MOUTH TWICE A DAY Oral; Duration: 30 Active Lisinopril 5 MG Tablet TAKE ONE TABLET B Y MOUTH EVERY DAY Oral; Duration: 90 Active ARIPiprazole 5 MG Tablet TAKE ONE TABLET BY MOUTH EVERY DAY Oral; Duration: 30 Active PARoxetine HCl Activ e Imitrex Active Trelegy Ellipta 200-62.5-25 MCG/ACT Aerosol Powder Breath Activated INHALE 1 PUFF INTO THE LUNGS DAILY Inhalation; Duration: 90 Active clonazePAM Active Immunizations Vaccine Route Administration Date Status Comme nts Influenza Unknown 12/06/2021 Administered Social History Tobacco Use: Social History Observation Description Date Details (start date - stop date) Never Smoker NA - NA Social History Drugs/Alcohol: Social Info Question Answer Notes Alcohol Screen Did you have a drink containing alcohol in the past year? No Points 0 Interpretation Negative Tobacco Use: Social Info Question Answer Notes Tobacco Use/Smoking Patient is a nonsmoker Additional Details Category Social Info Options Details Miscellaneous: Marital status: Occupation: bakery technician at [employer] Section Notes: Nonsmoker; no sig alcohol Problems Problem Type SNOMED Code ICD Code Onset Dates Problem Status W/U Status Risk Notes Problem Colon cancer screening (443714084) Colon cancer screening (Z12.11) Active confirmed Problem Diarrhea (60967171) Diarrhea (R19.7) Active confirmed Problem Preprocedural examination (359444566895778) Preprocedural examination (Z01.818) Active confirmed Plan Of Treatment Pending Test Test Name Order Date Pathology 04/04/2022 Future Test Test Name Order Date COLONOSCOPY 02/11/2022 Insurance Providers Payer Name Payer Address Payer Phone Subscriber Number Group Number Insured Name Patient Relationship to Insured Coverage Start Date Coverage End Date [facility]ICA[facility] [address] [place] [address] [id number] RJ MITCHELL Self - patient is the insured Medical (General) History Medical History History ICD Code Chronic kidney disease stage 4 --Dr. Orlando dennis Hypertension Anemia Hypothyroidism Hypercholesterolemia Asthma Anxiety Migraines Gout Depresssion Seasonal allergies Diarrhea--Negative colonosco py with me in 2009. There was no IBD or miroscopic colitis. Biopsies from the TI were normal. Negative labs for celiac disease. Denies [place],DM,CVA Surgical History Surgery Date(Month/Year) Ganglion cyst right wrist One ovary removed due to ovarian cyst
== END 2025-02-13 16:20 | disposition home or self-care (01) ==
LOC: HO.HKA 15:59
PROVIDERS: PCP Internal Medicine; Visit Provider Internal Medicine Hypertension Specialist
DX: N18.9 Chronic kidney disease, unspecified (principal)
CPT/HCPCS: 99214